=== PATIENT | female | born 1945 | race Caucasian/White ===

== ENCOUNTER 2019-08-20 09:06 | Emergency (ER) | payer MEDICARE, SELFPAY ==
[2019-08-20] VITALS (38 sets, daily range): BP systolic 128–171; BP diastolic 72–95; PULSE 63–95; RESP 14–22; TEMP 36.9; O2SAT 91–99
--- NOTE | ~2019-08-20 | CT_ITS ---
EXAMINATION: CTA brain carotid DATE: 08/20/2019 13:06 CDT INDICATION: Sudden onset of headache TECHNIQUE: Computed tomographic angiography (CTA) of the head was performed without and with 100 mL O mnipaque-350 intravenous contrast. CTA of the neck was performed with intravenous contrast. The dose- length product was 953.12 mGy-cm. Maximum intensity projection and volume rendered 3D-reconstructions were created by the technologist on a separate workstation. COMPARISON: None. FINDINGS: HEAD CTA: Vertebral arteries are codominant. The anterior, middle and posterior cerebral arteries are symmetric. No evidence for aneurysm or significant stenosis. NECK CTA: There is mild atherosclerosis of the carotid bulbs. No significant lymphadenopathy. Thyroid gland is unremarkable. There is 35% stenosis of the proximal right internal carotid artery relative to normal distal artery lumen diameter (NASCET criteria). There is 35% stenosis of the proximal left internal carotid artery relative to normal distal artery lumen diameter. IMPRESSION: 1. 35% stenosis of the proximal right internal carotid artery relative to normal distal artery lumen diameter (NASCET criteria). 2. 25% stenosis of the proximal left internal carotid artery relative to normal distal artery lumen d iameter. 3: Unremarkable intracranial CT angiography. Reviewed, dictated and finalized at location A. IMPRESSION: 1. 35% stenosis of the proximal right internal carotid artery relative to pepper l distal artery lumen diameter (NASCET criteria). 2. 25% stenosis of the proximal left internal carotid artery relative to normal distal artery lumen diameter. 3: Unremarkable intracranial CT angiography.
--- NOTE | ~2019-08-20 | CT_ITS ---
EXAMINATION: CT BRAIN W/O DATE: 08/20/2019 09:55 INDICATION: Severe headache with vomiting TECHNIQUE: Computed tomography (CT) of the head was performed without intravenous contrast. The dose- length product was 605.33 mGy-cm. The mA was adjusted according to patient size. Iterative reconstruc tion technique was employed. COMPARISON: No prior studies for comparison. FINDINGS: Normal brain parenchymal volume for age. Normal wick-white differentiation. No acute intrac ranial hemorrhage, infarction, mass or mass effect. There are scattered mild periventricular and subc ortical white matter changes, most likely related to small vessel ischemic disease (microangiopathy). No ventriculomegaly or midline shift. Midline sagittal images demonstrate a normal corpus callosum, c raniovertebral junction and sella turcica. Basilar cisterns are patent. Paranasal sinuses and mastoids are pneumatized. No depressed skull fractures. IMPRESSION: 1. No acute intracranial abnormality. Reviewed, dictated and finalized at location A.
--- NOTE | 2019-08-20 09:37 | ED.GENADULT ---
HPI - General Adult General Chief complaint: Nausea/Vomiting/Diarrhea Stated complaint: Vomiting Time Seen by Provider: 08/20/19 09:17 Source: patient Mode of arrival: ambulatory Limitations: no limitations History of Present Illness HPI narrative: 74 yo female with h/o previous breast CA, fibromyalgia, and parkinson's who presents for evaluation of frontal headache with nausea and vomiting. Patient states developed a frontal throbbing headache that became worse after she developed nausea and vomiting. She reports she has had multiple episodes vomiting. She denies visual changes, diplopia, neck pain, fever, diarrhea. Related Data Home Medications Medication Instructions Recorded Confirmed carbidopa ER 50 mg-levodopa 200 mg 1 tablet PO ONCE tablet 02/28/19 tablet,extended release mirtazapine 15 mg tablet 15 mg PO DAILY 02/28/19 ondansetron HCl 4 mg tablet 4 mg PO Q12H tablet 02/28/19 Allergies Allergy/AdvReac Type Severity Reaction Status Date / Time ciprofloxacin Allergy Unknown Difficulty Verified 08/20/19 09:14 Breathing levofloxacin Allergy Unknown Difficulty Verified 08/20/19 09:14 Breathing Review of Systems Review of Systems: All systems reviewed & are unremarkable except as noted in HPI and below Constitutional: Constitutional: Denies chills and Denies fever(s) Eyes: Eyes: Denies change in vision ENT: Denies dizziness, Denies nasal congestion and Denies sore throat Respiratory: Respiratory: Denies cough Gastrointestinal: Gastrointestinal: Denies abdominal pain and Reports nausea PMFSH Family History Family History (Updated 03/09/18 @ 11:30 by DOCTOR UNKNOWN) Grandparent Family history of cardiovascular disease Carcinoma of colon Family history of emphysema Family history of thoracic aortic aneurysm Mother Family history of cardiac disorder Father Family history of malignant neoplasm of brain Social History Social History Smoking status: Never smoker Second hand tobacco smoke exposure: No Alcohol intake: current Exam Narrative: Exam Narrative: GENERAL: Well-appearing, well-nourished, and in no acute distress. HEAD: Normocephalic, atraumatic EYES: PERRLA and EOMI, conjunctiva clear without discharge EARS: TM's clear bilaterally without erythema or dullness NOSE: Nares clear, no rhinorrhea or epistaxis THROAT:Mucous membranes moist, Oropharynx normal without erythema, exudate, peritonsillar swelling or fluctuance NECK: Supple, without lymphadenopathy or mass RESPIRATORY: No respiratory distress, Airway patent, Respirations non-labored, Clear to auscultation without rales, rhonchi or wheeze HEART: Regular rate and rhythm. No murmur heard. Normal peripheral pulses. ABDOMEN: Soft, nontender, nondistended, normal active bowel sounds. No masses. No rebound or guarding, No organomegaly. EXTREMITIES: No edema, normal strength with full range of motion. SKIN: Warm, dry, normal color without rash NEURO: Alert and oriented x3. CN 2-12 grossly intact. No focal deficits. PSYCH: Normal mood and affect. Course Reevaluation(s) Reevaluation #1: Patient still reports frontal throbbing headache, It is now 10/26 Date: 08/20/19 Time: 12:33 Reevaluation #2: Patient reports headache almost completely resolved to 04/28. I discussed with patient CT results showing no aneursym. I also discussed LP to rule out meningitis and intracranial hypertension . Patient 'symptoms dont appear to be consistent with either. She declines LP at this time. Date: 08/20/19 Time: 14:18 Vital Signs Vital signs: Vital Signs Temperature 98.5 F 08/20/19 09:09 Temperature 98.5 F 08/20/19 09:09 Pulse Rate 66 08/20/19 14:46 Respiratory Rate 20 08/20/19 14:46 Blood Pressure 130/81 08/20/19 14:46 Pulse Oximetry 94 08/20/19 14:46 Medical Decision Making Vital Signs Vital Signs: Vital Signs Temperature 98.5 F 08/20/19 09:09 Temperature
[2019-08-20 09:46] LABS: Basophils Percent Auto 0.4 % (0.2-1.2); Eosinophils Percent Auto 0.3 % (0-4.4); Hemoglobin 16.4 g/dL (12.0-15.0); Immature Granulocyte Absolute 0.02 K/mm3 (0.00-0.031); Immature Granulocyte Percent A 0.3 % (0-0.5); Lymphocytes Absolute Auto 1.64 K/mm3 (0.9-3.2); Lymphocytes Percent Auto 22.8 % (18.3-44.2); Mean Corpuscular HGB Conc 34.2 g/dl (32-36); Mean Corpuscular Hemoglobin 31.8 pg (26-34); Mean Corpuscular Volume 93.2 fl (80-100); Mean Platelet Volume 11.7 fl (7.4-10.4); Monocytes Absolute Auto 0.6 K/mm3 (0.1-0.6); Monocytes Percent Auto 7.9 % (2.6-8.5); Neutrophils Absolute Auto 4.9 K/mm3 (1.3-6.7); Neutrophils Percent Auto 68.3 % (45.5-73.1); Platelet Count Result 258 k/mm3 (150-375); Red Blood Count 5.15 M/mm3 (4.2-5.4); Red Cell Distribution Width 12.3 % (11.5-14.5); White Blood Count 7.2 K/mm3 (4.5-10.0)
[2019-08-20 09:49] LABS: Add Urine Microscopic? YES; Appearance Urine Clear (Clear); Bacteria Urine Trace /hpf; Bilirubin Urine Negative (Negative); Blood Urine Negative (Negative); Color Urine Yellow (Yellow); Glucose Urine UA Negative (Negative); Ketones Urine 1+ mg/dL (Negative); Leukocyte Esterase Ur 2+ LEU/UL (Negative); Mucus Urine Rare /lpf; Nitrate Urine Negative (Negative); Protein Urine 1+ mg/dL (Negative); Specific Grav Ur 1.029 (1.001-1.035); Squamous Epithelial Cell Urine Rare /hpf (Few); Urobilinogen Urine Negative mg/dL (<2.0); WBC Urine 21-30 /hpf
--- NOTE | 2019-08-20 09:51 | PC.NURSE ---
Pt to imaging.
[2019-08-20 09:56] LABS: INR 0.9; Partial Thromboplastin Time 26.4 SECONDS (22.3-36.8); Prothrombin Time 12.3 Seconds (11.1-14.7)
[2019-08-20] MEDS: METOCLOPRAMIDE HCL INJ 10 MG/2 ML VIAL IV PUSH (09:56)
[2019-08-20] MEDS: LACTATED RINGERS 1,000 ML 999 ML IV CONT ×2 (09:57→12:52)
--- NOTE | 2019-08-20 09:59 | ECG_ITS ---
Measurements Intervals [place] Rate: 75 P: 14 VT: 135 QRS: 8 QRSD: 94 T: 5 QT: 390 QTc: 437 Interpretive Statements SINUS RHYTHM MINIMAL Q WAVES- LATERAL LEADS BORDERLINE T WAVE ABNORMALITY- INFERIOR LEADS BORDERLINE ECG Electronically Signed On 08-20-2019 13:16:47 CDT by Horacio Johansen D.O.
[2019-08-20 10:15] LABS: Alanine Aminotransferase 11 U/L (4-35); Albumin Level 4.5 g/dL (3.5-5.1); Alkaline Phosphatase 57 U/L (38-126); Aspartate Amino Transferase 31 U/L (14-36); Bilirubin,Total 0.8 mg/dL (0.2-1.3); Blood Urea Nitrogen 15 mg/dL (7-17); Calcium 9.5 mg/dL (8.4-10.2); Carbon Dioxide 23 mmol/L (22-30); Chloride 104 mmol/L (98-107); Estimated CRCL calculation 67 ml/min; Estimated Glomerular Filt Rate > 60; Glucose 129 mg/dL (65-105); Potassium 3.7 mmol/L (3.4-5.0); Sodium 139 mmol/L (137-145)
--- NOTE | 2019-08-20 11:03 | PC.NURSE ---
Pt reports improvement in pain, it is now a 7/10 in head. Reports no N/V
[2019-08-20] MEDS: KETOROLAC 30 MG/ML VIAL (*BKC) IV PUSH (12:52)
== END 2019-08-20 15:13 | disposition home or self-care (01) ==
PROVIDERS: Emergency Provider General Practice; PCP Family Medicine
DX: N39.0 Urinary tract infection, site not specified (principal); E86.0 Dehydration; G44.209 Tension-type headache, unspecified, not intractable; Z85.3 Personal history of malignant neoplasm of breast; G20 Parkinson's disease; R94.31 Abnormal electrocardiogram [ECG] [EKG]
CPT/HCPCS: 36415; 70450; 70496; 70498; 80053; 81001; 85025; 85610; 85730; 87086; 87088; 93005; 96361; 96365; 96375; 99284; J0131; J1200; J1885; J2765; J7120; Q9967

== ENCOUNTER → 2019-10-02 13:34 | Outpatient (CLI) | payer MEDICARE, SELFPAY ==
--- NOTE | ~2019-10-02 | XR_ITS ---
EXAMINATION: XR foot RT 2V DATE: 10/02/2019 14:35 INDICATION: Plantar fascial fibromatosis. TECHNIQUE: 2 views of right foot were obtained. COMPARISON: None. FINDINGS: There is mild hallux valgus. No fracture. There is mild osteoarthritis of first metatarsoph alangeal joint and some of the interphalangeal joints. There are enthesophytes at the plantar and pos terior aspects of calcaneal tuberosity. IMPRESSION: 1. Mild polyarticular osteoarthritis. 2. Mild hallux valgus. Reviewed, dictated and finalized at location A.
== END ==
PROVIDERS: PCP Family Medicine; Visit Provider Family Medicine
DX: M72.2 Plantar fascial fibromatosis (principal); M20.11 Hallux valgus (acquired), right foot; M19.071 Primary osteoarthritis, right ankle and foot
CPT/HCPCS: 73620

== ENCOUNTER 2020-05-29 08:05 | Outpatient (CLI) | payer MEDICARE, SELFPAY ==
[2020-05-29 18:36] LABS: Basophils Percent Auto 0.8 % (0.2-1.2); Eosinophils Absolute Auto 0.1 K/mm3 (0-0.3); Eosinophils Percent Auto 2.7 % (0-4.4); Hematocrit 47.9 % (37.0-47.0); Hemoglobin 15.6 g/dL (12.0-15.0); Immature Granulocyte Absolute 0.01 K/mm3 (0.00-0.031); Immature Granulocyte Percent A 0.3 % (0-0.5); Lymphocytes Absolute Auto 1.46 K/mm3 (0.9-3.2); Lymphocytes Percent Auto 39.2 % (18.3-44.2); Mean Corpuscular HGB Conc 32.6 g/dl (32-36); Mean Corpuscular Hemoglobin 31.7 pg (26-34); Mean Corpuscular Volume 97.4 fl (80-100); Mean Platelet Volume 11.6 fl (7.4-10.4); Monocytes Absolute Auto 0.4 K/mm3 (0.1-0.6); Monocytes Percent Auto 9.4 % (2.6-8.5); Neutrophils Absolute Auto 1.8 K/mm3 (1.3-6.7); Neutrophils Percent Auto 47.6 % (45.5-73.1); Platelet Count Result 247 k/mm3 (150-375); Red Blood Count 4.92 M/mm3 (4.2-5.4); Red Cell Distribution Width 12.2 % (11.5-14.5); White Blood Count 3.7 K/mm3 (4.5-10.0)
[2020-05-29 18:41] LABS: Add Urine Microscopic? YES; Appearance Urine Clear (Clear); Bacteria Urine Trace /hpf; Bilirubin Urine Negative (Negative); Blood Urine Negative (Negative); Color Urine Yellow (Yellow); Glucose Urine UA Negative (Negative); Hyaline Casts Urine 30-49 /lpf; Ketones Urine Negative (Negative); Leukocyte Esterase Ur Trace LEU/UL (Negative); Mucus Urine Few /lpf; Nitrate Urine Negative (Negative); Protein Urine 1+ mg/dL (Negative); RBC Urine 0-2 /hpf (0-2); Specific Grav Ur 1.021 (1.001-1.035); Squamous Epithelial Cell Urine Rare /hpf (Few); Urobilinogen Urine Negative mg/dL (<2.0)
[2020-05-29 18:44] LABS: Alanine Aminotransferase 10 U/L (4-35); Alkaline Phosphatase 53 U/L (38-126); Anion Gap 5 mmol/L (8-16); Aspartate Amino Transferase 33 U/L (14-36); Bilirubin,Total 0.7 mg/dL (0.2-1.3); Blood Urea Nitrogen 19 mg/dL (7-17); Calcium 9.8 mg/dL (8.4-10.2); Carbon Dioxide 30 mmol/L (22-30); Chloride 105 mmol/L (98-107); Cholesterol 218 mg/dL (0-200); Estimated Glomerular Filt Rate > 60; Glucose 106 mg/dL (65-105); HDL Direct 42 mg/dL; Potassium 4.1 mmol/L (3.4-5.0); Sodium 140 mmol/L (137-145); Triglycerides 309 mg/dL (<150)
[2020-05-29 18:56] LABS: LDL Cholesterol Direct 140 mg/dL
[2020-05-29 19:02] LABS: Vitamin D 25 Hydroxy 35.8 ng/mL
[2020-05-29 19:54] LABS: Folic Acid > 20.0 ng/mL (2.76->20)
== END 2020-05-29 08:06 | disposition home or self-care (01) ==
LOC: ANHBWCLAB 08:06
PROVIDERS: PCP Family Medicine; Visit Provider Family Medicine
DX: M32.9 Systemic lupus erythematosus, unspecified (principal); R53.83 Other fatigue; Z79.899 Other long term (current) drug therapy; Z82.62 Family history of osteoporosis
CPT/HCPCS: 36415; 80053; 80061; 81001; 82306; 82607; 82746; 84443; 85025; 87086

== ENCOUNTER 2020-11-12 10:38 | Outpatient (CLI) | payer MEDICARE, SELFPAY ==
--- NOTE | ~2020-11-12 | XR_ITS ---
XR hand BI arthritis min 3V 11/12/2020 11:05 Indication: Systemic lupus erythematosus. Procedure: 4 views of each hand Comparison: No prior studies for comparison. Findings: There is mild polyarticular osteoarthritis of the left hand including the first MCP and IP joints and the second interphalangeal joints. Normal mineralization. No fracture or traumatic malalig nment. No erosive changes. No foreign bodies. There is mild osteoarthritis of the right hand involvin g the first MCP and IP joints and the interphalangeal joints. There is mild osteoarthritis of the sec ond third MCP joints. Normal mineralization. No erosive changes. No foreign bodies. Impression: 1: Mild polyarticular osteoarthritis of the hands. Reviewed, dictated and finalized at location A. Impression: 1: Mild polyarticular osteoarthritis of the hands.
--- NOTE | ~2020-11-12 | XR_ITS ---
XR foot RT standing 2V, XR foot LT standing 2V 11/12/2020 11:05 Indication: Systemic lupus erythematosus. Procedure: 2 views of each foot Comparison: No prior studies for comparison. Findings: Mild osteoarthritis of the first MTP joints. Normal mineralization. No erosive changes. Lis franc joint intact bilaterally. There are degenerative calcaneal enthesophytes bilaterally. No acute fracture or traumatic malalignment. Mild bilateral hallux valgus. No fracture or traumatic malalignme nt. Impression: 1: Mild bilateral osteoarthritis of the first MTP joints with hallux valgus. Reviewed, dictated and finalized at location A. Impression: 1: Mild bilateral osteoarthritis of the first MTP joints with hallux valgus. Impression: 1: Mild bilateral osteoarthritis of the first MTP joints with hallux valgus.
== END 2020-11-12 10:39 | disposition home or self-care (01) ==
PROVIDERS: PCP Family Medicine; Visit Provider Internal Medicine
DX: M32.9 Systemic lupus erythematosus, unspecified (principal); M20.12 Hallux valgus (acquired), left foot; M20.11 Hallux valgus (acquired), right foot; M89.49 Other hypertrophic osteoarthropathy, multiple sites
CPT/HCPCS: 73130; 73620

== ENCOUNTER 2020-12-09 09:09 | Emergency (ER) | payer MEDICARE, SELFPAY ==
[2020-12-09 09:35] VITALS: BP 149/91; PULSE 73; RESP 14; TEMP 36.6; O2SAT 97
[2020-12-09 09:58] LABS: Basophils Percent Auto 0.5 % (0.2-1.2); Eosinophils Absolute Auto 0.1 K/mm3 (0-0.3); Hematocrit 47.1 % (37.0-47.0); Hemoglobin 15.5 g/dL (12.0-15.0); Immature Granulocyte Absolute 0.01 K/mm3 (0.00-0.031); Immature Granulocyte Percent A 0.2 % (0-0.5); Lymphocytes Absolute Auto 1.39 K/mm3 (0.9-3.2); Lymphocytes Percent Auto 34.7 % (18.3-44.2); Mean Corpuscular HGB Conc 32.9 g/dl (32-36); Mean Corpuscular Hemoglobin 31.6 pg (26-34); Mean Corpuscular Volume 95.9 fl (80-100); Mean Platelet Volume 11.1 fl (7.4-10.4); Monocytes Absolute Auto 0.4 K/mm3 (0.1-0.6); Monocytes Percent Auto 10.5 % (2.6-8.5); Neutrophils Absolute Auto 2.1 K/mm3 (1.3-6.7); Neutrophils Percent Auto 52.1 % (45.5-73.1); Platelet Count Result 239 k/mm3 (150-375); Red Blood Count 4.91 M/mm3 (4.2-5.4); Red Cell Distribution Width 12.2 % (11.5-14.5)
[2020-12-09 10:12] LABS: Alanine Aminotransferase 8 U/L (4-35); Albumin Level 4.1 g/dL (3.5-5.1); Alkaline Phosphatase 45 U/L (38-126); Anion Gap 6 mmol/L (8-16); Aspartate Amino Transferase 27 U/L (14-36); Bilirubin,Total 0.5 mg/dL (0.2-1.3); Blood Urea Nitrogen 9 mg/dL (7-17); Calcium 10.2 mg/dL (8.4-10.2); Carbon Dioxide 31 mmol/L (22-30); Chloride 99 mmol/L (98-107); Estimated CRCL calculation 64 ml/min; Estimated Glomerular Filt Rate > 60; Glucose 110 mg/dL (65-110); Lipase 76 U/L (23-300); Potassium 3.5 mmol/L (3.4-5.0); Sodium 136 mmol/L (137-145)
[2020-12-09 11:56] LABS: Add Urine Microscopic? YES; Appearance Urine Clear (Clear); Bilirubin Urine Negative (Negative); Blood Urine Negative (Negative); Color Urine Yellow (Yellow); Glucose Urine UA Negative (Negative); Ketones Urine Trace mg/dL (Negative); Leukocyte Esterase Ur 3+ LEU/UL (Negative); Mucus Urine Rare /lpf; Nitrate Urine Negative (Negative); Protein Urine 1+ mg/dL (Negative); Specific Grav Ur 1.025 (1.001-1.035); Urobilinogen Urine Negative mg/dL (<2.0); WBC Urine 31-50 /hpf
[2020-12-09 12:31] VITALS: BP 142/76; PULSE 67; RESP 13; O2SAT 97
--- NOTE | 2020-12-09 12:33 | ED.NAVMDI ---
HPI - Nausea/Vomiting/Diarrhea General Chief complaint: Nausea/Vomiting/Diarrhea Stated complaint: Nausea, vomiting x2 weeks Time Seen by Provider: 12/09/20 12:27 History of Present Illness HPI Narrative: Nausea and vomiting for the past 2 weeks. She initially had diarrhea as well, this has resolved. Seen at a hospital in [place] when symptoms started. Told that it was likely gastritis or food poisoning. She was discharged with zofran and loperamide. The zofran provides temporary relief, she has not needed the loperamide. She was doing better for a short period, now symptoms have returned. Vomiting worse at night. Related Data Home Medications Medication Instructions Recorded Confirmed carbidopa ER 50 mg-levodopa 200 mg 1 tablet PO ONCE tablet 02/28/19 11/12/20 tablet,extended release letrozole 2.5 mg tablet 2.5 mg PO DAILY 10/02/19 11/12/20 zoledronic acid 4 mg/5 mL 1 mg IVPB ONCE 10/02/19 11/12/20 intravenous solution biotin 1,000 mcg chewable tablet 1,000 mcg PO DAILY 05/28/20 11/12/20 calcium carbonate 390 mg calcium 390 mg PO DAILY 05/28/20 11/12/20 (1,000 mg) tablet calcium carbonate 600 mg (1,500 cap PO DAILY cap 05/28/20 11/12/20 mg)-vitamin D3 500 unit capsule carbidopa 25 mg-levodopa 100 mg 1 tablet PO TID 05/28/20 11/12/20 tablet coenzyme [id number]-[id number] E 100 mg-100 cap PO DAILY cap 05/28/20 11/12/20 unit capsule multivitamin 1 tablet PO DAILY 05/28/20 11/12/20 potassium 99 mg tablet mg PO 05/28/20 11/12/20 quetiapine 25 mg tablet 25 mg PO DAILY tablet 05/28/20 11/12/20 vitamin E (dl, acetate) 450 mg 4,000 mg PO DAILY cap 05/28/20 11/12/20 (1,000 unit) capsule Allergies Allergy/AdvReac Type Severity Reaction Status Date / Time ciprofloxacin Allergy Unknown Difficulty Verified 12/09/20 12:33 Breathing levofloxacin Allergy Unknown Difficulty Verified 12/09/20 12:33 Breathing Review of Systems Review of Systems: All systems reviewed & are unremarkable except as noted in HPI and below Constitutional: Constitutional: Denies fever(s) Cardiovascular: Cardiovascular: Denies chest pain Respiratory: Respiratory: Denies dyspnea Gastrointestinal: Gastrointestinal: Denies abdominal pain, Reports nausea and Reports vomiting Genitourinary: Genitourinary: Denies hematuria, Denies nocturia and Denies dysuria Musculoskeletal: Musculoskeletal: Denies back pain Neurologic: Reports weakness PMFSH Past Medical History Medical History Cancer Fibromyalgia History of frequent headaches Lupus Surgical History Surgical History H/O mastectomy left H/O total hysterectomy Family History Family History Grandparent Family history of cardiovascular disease Carcinoma of colon Family history of emphysema Family history of thoracic aortic aneurysm Mother Family history of cardiac disorder Father Family history of malignant neoplasm of brain Social History Social History Smoking status: Never smoker Second hand tobacco smoke exposure: No Alcohol intake: never Substance use: never Substance use type: does not use Exam Const: General: no acute distress and alert Nutritional Appearance: obese Orientation/consciousness: patient oriented x3 HENMT: Head: normal to inspection Neck: Neck: normal visual inspection Resp: Effort & Inspection: normal respiratory effort Auscultation: clear to auscultation bilaterally, no rales, no rhonchi and no wheezes Cardio: Jugular venous distension: no JVD Rate: regular rate Rhythm: regular rhythm Heart sounds: no murmurs GI: Inspection: non-distended GI Palp: Yes Soft to palpation and No Tenderness to palpation present (GI) Skin: General skin exam: normal color Neuro: General: patient oriented x3 a
[2020-12-09] MEDS: SODIUM CHLORIDE 0.9% IV 1,000 ML 999 ML IV CONT (13:04)
[2020-12-09] MEDS: METOCLOPRAMIDE HCL INJ 10 MG/2 ML VIAL IV PUSH (13:04)
[2020-12-09] MEDS: NITROFURANTOIN MONOHYD MACROCR 100 MG CAP PO (14:10)
== END 2020-12-09 14:57 | disposition home or self-care (01) ==
PROVIDERS: Family Medicine; Emergency Provider Emergency Medicine; PCP Family Medicine
DX: N39.0 Urinary tract infection, site not specified (principal); R11.2 Nausea with vomiting, unspecified; M79.7 Fibromyalgia; Z85.3 Personal history of malignant neoplasm of breast; Z90.12 Acquired absence of left breast and nipple
CPT/HCPCS: 36415; 80053; 81001; 83690; 85025; 87086; 87147; 87181; 87186; 96361; 96374; 99284; A9270; J2765; J7030

== ENCOUNTER 2021-05-06 09:11 | Outpatient (CLI) | payer MEDICARE, SELFPAY ==
[2021-05-06 19:01] LABS: Basophils Percent Auto 0.9 % (0.2-1.2); Eosinophils Absolute Auto 0.1 K/mm3 (0-0.3); Eosinophils Percent Auto 2.1 % (0-4.4); Hemoglobin 15.4 g/dL (12.0-15.0); Lymphocytes Absolute Auto 1.24 K/mm3 (0.9-3.2); Lymphocytes Percent Auto 37.7 % (18.3-44.2); Mean Corpuscular HGB Conc 32.8 g/dl (32-36); Mean Corpuscular Hemoglobin 31.7 pg (26-34); Mean Corpuscular Volume 96.7 fl (80-100); Mean Platelet Volume 11.5 fl (7.4-10.4); Monocytes Absolute Auto 0.4 K/mm3 (0.1-0.6); Monocytes Percent Auto 12.5 % (2.6-8.5); Neutrophils Absolute Auto 1.5 K/mm3 (1.3-6.7); Neutrophils Percent Auto 46.8 % (45.5-73.1); Platelet Count Result 232 k/mm3 (150-375); Red Blood Count 4.86 M/mm3 (4.2-5.4); Red Cell Distribution Width 12.5 % (11.5-14.5); White Blood Count 3.3 K/mm3 (4.5-10.0)
[2021-05-06 19:14] LABS: Alanine Aminotransferase 8 U/L (4-35); Albumin Level 4.4 g/dL (3.5-5.1); Alkaline Phosphatase 56 U/L (38-126); Anion Gap 11 mmol/L (8-16); Aspartate Amino Transferase 41 U/L (14-36); Bilirubin,Total 0.7 mg/dL (0.2-1.3); Blood Urea Nitrogen 18 mg/dL (7-17); CRP 0.5 mg/dL (<1.0); Calcium 10.1 mg/dL (8.4-10.2); Carbon Dioxide 25 mmol/L (22-30); Chloride 105 mmol/L (98-107); Estimated Glomerular Filt Rate > 60; Glucose 86 mg/dL (65-110); Potassium 4.3 mmol/L (3.4-5.0); Sodium 141 mmol/L (137-145)
[2021-05-06 19:29] LABS: Add Urine Microscopic? YES; Appearance Urine Clear (Clear); Bacteria Urine Trace /hpf; Bilirubin Urine Negative (Negative); Blood Urine Negative (Negative); Color Urine Yellow (Yellow); Glucose Urine UA Negative (Negative); Ketones Urine Trace mg/dL (Negative); Leukocyte Esterase Ur Trace LEU/UL (Negative); Mucus Urine Few /lpf; Nitrate Urine Negative (Negative); Protein Urine 1+ mg/dL (Negative); Specific Grav Ur 1.026 (1.001-1.035); Squamous Epithelial Cell Urine Rare /hpf (Few); Urobilinogen Urine Negative mg/dL (<2.0)
[2021-05-06 20:33] LABS: Erythrocyte Sedimentation Rate 15 mm/hr (0-20)
[2021-05-06 21:23] LABS: Rheumatoid Factor < 8.6 IU/ML (<12)
[2021-05-09 20:33] LABS: Lupus dRVVT 1:1 Mix Interpreta Not Indicated; Lupus dRVVT Screen 34 sec (<=45); PTT-LA Screen 33 sec (<=40)
[2021-05-09 22:17] LABS: Anti Cyclic Citrullinated Pept <16 Units (<20)
[2021-05-10 11:57] LABS: SM Antibody <1.0; SM/RNP Antibody <1.0
[2021-05-10 11:57] LABS: SS-A <1.0; SS-B <1.0
== END 2021-05-06 09:12 | disposition home or self-care (01) ==
PROVIDERS: PCP Family Medicine; Visit Provider Internal Medicine
DX: M06.9 Rheumatoid arthritis, unspecified (principal); M32.9 Systemic lupus erythematosus, unspecified; Z11.59 Encounter for screening for other viral diseases; M06.00 Rheumatoid arthritis without rheumatoid factor, unspecified site; Z79.899 Other long term (current) drug therapy
CPT/HCPCS: 36415; 80053; 81001; 85025; 85613; 85652; 85730; 86038; 86140; 86200; 86225; 86235; 86430; 87086

== ENCOUNTER 2021-11-11 09:47 | Outpatient (CLI) | payer MEDICARE, SELFPAY ==
[2021-11-11 10:29] LABS: Basophils Percent Auto 0.5 % (0.2-1.2); Eosinophils Absolute Auto 0.1 K/mm3 (0-0.3); Eosinophils Percent Auto 2.4 % (0-4.4); Hematocrit 43.8 % (37.0-47.0); Hemoglobin 14.4 g/dL (12.0-15.0); Immature Granulocyte Absolute 0.01 K/mm3 (0.00-0.031); Immature Granulocyte Percent A 0.2 % (0-0.5); Lymphocytes Absolute Auto 1.31 K/mm3 (0.9-3.2); Lymphocytes Percent Auto 31.4 % (18.3-44.2); Mean Corpuscular HGB Conc 32.9 g/dl (32-36); Mean Corpuscular Hemoglobin 31.6 pg (26-34); Mean Corpuscular Volume 96.1 fl (80-100); Monocytes Absolute Auto 0.5 K/mm3 (0.1-0.6); Monocytes Percent Auto 10.8 % (2.6-8.5); Neutrophils Absolute Auto 2.3 K/mm3 (1.3-6.7); Neutrophils Percent Auto 54.7 % (45.5-73.1); Platelet Count Result 200 k/mm3 (150-375); Red Blood Count 4.56 M/mm3 (4.2-5.4); Red Cell Distribution Width 12.1 % (11.5-14.5); White Blood Count 4.2 K/mm3 (4.5-10.0)
[2021-11-11 14:37] LABS: Appearance Urine Clear (Clear); Bilirubin Urine Negative (Negative); Blood Urine Negative (Negative); Color Urine Yellow (Yellow); Glucose Urine UA Negative (Negative); Ketones Urine Negative (Negative); Leukocyte Esterase Ur 1+ LEU/UL (Negative); Nitrate Urine Negative (Negative); Protein Urine Negative (Negative); Specific Grav Ur >= 1.030 (1.001-1.035); Urobilinogen Urine 0.2 mg/dL (<2.0); pH Urine 5.5 (5.0-9.0)
[2021-11-11 14:44] LABS: Alanine Aminotransferase 14 U/L (6-35); Albumin Level 4.2 g/dL (3.5-5.1); Alkaline Phosphatase 51 U/L (38-126); Anion Gap 8 mmol/L (8-16); Aspartate Amino Transferase 30 U/L (14-36); Bilirubin,Total 0.4 mg/dL (0.2-1.3); Blood Urea Nitrogen 20 mg/dL (7-17); CRP < 0.5 mg/dL (<1.0); Calcium 8.6 mg/dL (8.4-10.2); Carbon Dioxide 31 mmol/L (22-30); Chloride 104 mmol/L (98-107); Estimated Glomerular Filt Rate > 60; Glucose 95 mg/dL (65-110); Potassium 4.2 mmol/L (3.4-5.0); Sodium 143 mmol/L (137-145)
[2021-11-11 14:50] LABS: Bacteria Urine Trace /hpf; Mucus Urine Rare /lpf; RBC Urine 0-2 /hpf (0-2); Squamous Epithelial Cell Urine Rare /hpf (Few)
[2021-11-11 14:52] LABS: Add Urine Microscopic? YES
[2021-11-11 14:57] LABS: Erythrocyte Sedimentation Rate 12 mm/hr (0-20)
[2021-11-11 17:22] LABS: Complement C3 100 mg/dL (88-165)
== END 2021-11-11 09:48 | disposition home or self-care (01) ==
LOC: ANHLAB 09:48
PROVIDERS: PCP Family Medicine; Visit Provider Internal Medicine
DX: E55.9 Vitamin D deficiency, unspecified (principal); M35.9 Systemic involvement of connective tissue, unspecified; M19.90 Unspecified osteoarthritis, unspecified site
CPT/HCPCS: 36415; 80053; 81001; 82306; 85025; 85652; 86140; 86160; 87086

== ENCOUNTER 2022-01-15 14:42 | Outpatient (CLI) | payer MEDICARE, SELFPAY ==
--- NOTE | ~2022-01-15 | XR_ITS ---
EXAMINATION: XR wrist LT min 3V DATE: 01/15/2022 14:53 INDICATION: 3 weeks of ulnar-sided wrist pain and pain at the proximal thumb TECHNIQUE: Posteroanterior, ulnar deviation, oblique, and lateral views of the left wrist were obtain ed. COMPARISON: 11/12/2020 FINDINGS: Bone alignment is normal. No fracture. Small heterotopic ossicle in the tissues at the radial margin of the head of the second metacarpal tenderness related to old trauma to the radial collateral ligame nt complex. Mild osteoarthritis at the triscaphe, first carpal metacarpal and first interphalangeal j oints. Unchanged cystic change at the lunate. No evident cortical erosions. Soft tissues are unremark able.. IMPRESSION: 1. No acute osseous abnormality. 2. Mild osteoarthritis at the radial aspect of the carpus and first interphalangeal joint. Reviewed, dictated and finalized at location A. IMPRESSION: 1. No acute osseous abnormality. 2. Mild osteoarthritis at the radial aspect of the carpus and first interphalan geal joint.
== END 2022-01-15 14:43 | disposition home or self-care (01) ==
LOC: ANHBWCIMG 14:43
PROVIDERS: PCP Family Medicine; Visit Provider Family Medicine
DX: M19.032 Primary osteoarthritis, left wrist (principal)
CPT/HCPCS: 73110

== ENCOUNTER → 2022-01-22 10:09 | Outpatient (CLI) | payer MEDICARE, SELFPAY ==
--- NOTE | ~2022-01-22 | DEXA_ITS ---
Bone Density Report Name: CLAUDIA LAGOS Age: 76 Sex: Female Ethnicity: White Date of : 1945 Indication: postmenopausal; screening for osteoporosis; prior fracture; cancer; hysterectomy; Referring Provider: Joni Kilpatrick Study: Bone densitometry was performed. Exam Date: January 22, 2022 Accession number: [id number] Bone Density: Region BMD T-score Z-score Classification AP Spine (L1, L2) 1.179 1.8 4.1 Normal Femoral Neck (Left) 0.574 -2.5 -0.4 Osteoporosis Total Hip (Left) 0.797 -1.2 0.6 Osteopenia Femoral Neck (Right) 0.582 -2.4 -0.3 Osteopenia Total Hip (Right) 0.766 -1.4 0.3 Osteopenia Total Hip Mean 0.782 -1.3 0.5 Osteopenia World Health Organization criteria for BMD impression classify patients as: Normal (T-score at or above -1.0), Osteopenia (T-score between -1.0 and -2.5), or Osteoporosis (T-score at or below -2.5). 10-year Fracture Risk: FRAX not reported because: Some T-score for Spine Total or Hip Total or Femoral Neck at or below -2.5 Clinical Information Provided by Patient: Has had a low trauma fracture Has used the following medications: Vitamin D Has the following medical conditions: Cancer, Hysterectomy Patient maximum height was 62.3 Menopause Age: 40 No regular weight bearing exercise Drinks caffeinated beverages Onset of menses at age 16 Number of children 2 Impression: The patient has established osteoporosis, based on the Left Femoral Neck T-score and the existence of a prior fracture. The patient has risk factors, including: previous fracture. Discussion: HIGH RISK OF FRACTURE. BONE DENSITY IS UNDESIRABLY LOW AT ONE OR MORE SKELETAL SITES, CONSISTENT WITH POSTMENOPAUSAL OSTEOPOROSIS. This patient's lowest T-score, in a patient who has previously fractured, meets the World Health Organization's (WHO) criteria for severe osteoporosis. In untreated patients, the risk of osteoporotic fracture increases approximately two-fold for each 1.0 SD decrease in T-score. Low bone density is not the only risk factor for fracture; also consider factors such as patient's age, frailty or poor health, risk of falling, risk of injury, previous osteoporotic fracture, family history of osteoporosis, cigarette smoking, low body weight, etc. Not everyone with low bone mineral density has osteoporosis; osteomalacia and other metabolic bone disorders should also be considered. Patients who have osteoporosis should be evaluated for specific diseases and conditions (secondary causes) that may cause or contribute to bone loss. The [place] [employer]ocrinologists (AACE) and National Osteoporosis Foundation (NOF) recommend pharmacologic intervention for all postmenopausal women whose T-score is in this range. The patient should follow a healthful lifestyle (good nutrition with adequate gustavo
== END ==
PROVIDERS: PCP Family Medicine; Visit Provider Internal Medicine
DX: Z13.820 Encounter for screening for osteoporosis (principal); M81.0 Age-related osteoporosis without current pathological fracture; M85.852 Other specified disorders of bone density and structure, left thigh; M85.851 Other specified disorders of bone density and structure, right thigh
CPT/HCPCS: 77080

== ENCOUNTER 2022-08-17 11:13 | Emergency (ER) | payer MEDICARE, SELFPAY ==
--- NOTE | ~2022-08-17 | CT_ITS ---
CT of the Abdomen and Pelvis: Indication: Nausea and vomiting Technique: 2.5 mm axial scans were obtained through the abdomen and pelvis following intravenous adm inistration of 100 cc of Omnipaque 350. Dose reduction technique was used on this scan by utilizing a utomated exposure control and iterative reconstruction technique. The dose-length product (DLP) was 1 181.42 mGy-cm. COMPARISON: 01/24/2018 Findings: Scans through the lung bases demonstrate stable bibasilar scarring and probable chronic ro unded atelectasis. Dlplk-ap-oivvcoyr hiatal hernia again present. The liver, spleen, pancreas, gallbladder, adrenals and kidneys are within normal limits. There are at herosclerotic calcifications of the aorta. No lymphadenopathy. No bowel obstruction or bowel wall thickening. There is no evidence to suggest acute appendicitis. Sm all umbilical fat-containing of focal hernia present. Images through the pelvis were performed. Urinary bladder unremarkable. No pelvic mass evident. No as cites. Impression: No acute abnormality seen. Eqpyn-gh-doodsyuj hiatal hernia, similar to prior exam. Postoperative change involving the hiatus her dulce region is stable from prior exam. Correlate with surgical history. Small fat-containing umbilical hernia. Reviewed, dictated and finalized at location M. Impression: No acute abnormality seen. Elitf-uc-yfitcmyu hiatal hernia, similar to prior exam. Postoperative change in volving the hiatus hernia region is stable from prior exam. Correlate with surg ical history. Small fat-containing umbilical hernia.
[2022-08-17 11:21] VITALS: BP 167/81; PULSE 76; RESP 14; TEMP 36.6; O2SAT 98
[2022-08-17 11:47] VITALS: BP 188/100; PULSE 75; RESP 16; O2SAT 95
--- NOTE | 2022-08-17 11:50 | ECG_ITS ---
Measurements Intervals [place] Rate: 72 P: 17 [place]: 124 QRS: 23 QRSD: 100 T: 30 QT: 429 QTc: 471 Interpretive Statements SINUS RHYTHM BASELINE ARTIFACT- III, V4 NORMAL ECG COMPARED TO ECG 08/20/2019 09:57:55 NO SIGNIFICANT CHANGES Electronically Signed On 08-17-2022 13:04:45 CDT by Horacio Johansen D.O.
[2022-08-17 11:54] LABS: Basophils Percent Auto 0.3 % (0.2-1.2); Hematocrit 46.4 % (37.0-47.0); Hemoglobin 15.7 g/dL (12.0-15.0); Immature Granulocyte Absolute 0.02 K/mm3 (0.00-0.031); Immature Granulocyte Percent A 0.3 % (0-0.5); Lymphocytes Percent Auto 10.8 % (18.3-44.2); Mean Corpuscular HGB Conc 33.8 g/dl (32-36); Mean Corpuscular Hemoglobin 31.6 pg (26-34); Mean Corpuscular Volume 93.4 fl (80-100); Mean Platelet Volume 11.1 fl (7.4-10.4); Monocytes Absolute Auto 0.2 K/mm3 (0.1-0.6); Monocytes Percent Auto 3.2 % (2.6-8.5); Neutrophils Absolute Auto 5.6 K/mm3 (1.3-6.7); Neutrophils Percent Auto 85.4 % (45.5-73.1); Platelet Count Result 226 k/mm3 (150-375); Red Blood Count 4.97 M/mm3 (4.2-5.4); Red Cell Distribution Width 11.9 % (11.5-14.5); White Blood Count 6.5 K/mm3 (4.5-10.0)
[2022-08-17 12:00] LABS: Lipase 42 U/L (23-300)
[2022-08-17] MEDS: ONDANSETRON INJ 4 MG/2 ML VIAL IV PUSH (12:01)
[2022-08-17 12:02] LABS: Alanine Aminotransferase 26 U/L (6-35); Albumin Level 4.7 g/dL (3.5-5.1); Alkaline Phosphatase 54 U/L (38-126); Anion Gap 5 mmol/L (8-16); Aspartate Amino Transferase 35 U/L (14-36); Bilirubin,Total 0.8 mg/dL (0.2-1.3); Blood Urea Nitrogen 18 mg/dL (7-17); Calcium 9.5 mg/dL (8.4-10.2); Carbon Dioxide 27 mmol/L (22-30); Chloride 104 mmol/L (98-107); Estimated CRCL calculation 68 ml/min; Estimated Glomerular Filt Rate > 60; Glucose 155 mg/dL (65-110); Potassium 4.1 mmol/L (3.4-5.0); Sodium 136 mmol/L (137-145)
[2022-08-17 12:26] LABS: Troponin I < 0.012 ng/mL (0.000-0.034)
[2022-08-17] MEDS: PANTOPRAZOLE SODIUM IV 40 MG VIAL IV PUSH (13:16)
[2022-08-17] MEDS: diphenhydrAMINE HCl INJ 50 MG/ML VIAL 25 MG IV PUSH (13:17)
[2022-08-17] MEDS: METOCLOPRAMIDE HCL INJ 10 MG/2 ML VIAL IV PUSH (13:20)
[2022-08-17 13:21] VITALS: BP 145/86; PULSE 74; RESP 20; O2SAT 97
[2022-08-17 14:17] VITALS: BP 151/92; PULSE 80; RESP 22; O2SAT 97
--- NOTE | 2022-08-17 14:19 | ED.NAVMDI ---
HPI - Nausea/Vomiting/Diarrhea General Chief complaint: Nausea/Vomiting/Diarrhea Stated complaint: N/V since last night Time Seen by Provider: 08/17/22 11:41 History of Present Illness HPI Narrative: Patient presenting with nausea and vomiting since 8 PM last night after eating dinner, no abdominal pain other than when she is throwing up. No fevers or chills. Related Data Home Medications Medication Instructions Recorded Confirmed carbidopa ER 50 mg-levodopa 200 mg 1 tablet PO ONCE 02/28/19 05/13/21 tablet,extended release letrozole 2.5 mg tablet 2.5 mg PO DAILY 10/02/19 05/13/21 zoledronic acid 4 mg/5 mL 1 mg IV ONCE 10/02/19 05/13/21 intravenous solution biotin 1,000 mcg chewable tablet 1,000 mcg PO DAILY 05/28/20 05/13/21 calcium carbonate 390 mg calcium 390 mg PO DAILY 05/28/20 05/13/21 (1,000 mg) tablet calcium carbonate 600 mg-vitamin cap PO DAILY 05/28/20 05/13/21 D3 12.5 mcg (500 unit) capsule (Calcium 600 with Vitamin D3) carbidopa 25 mg-levodopa 100 mg 1 tablet PO TID 05/28/20 05/13/21 tablet coenzyme Q17-csvhnbd E 100 mg-100 cap PO DAILY 05/28/20 05/13/21 unit capsule multivitamin (Daily Multi-Vitamin 1 tablet PO DAILY 05/28/20 05/13/21 tablet) potassium 99 mg tablet mg PO 05/28/20 05/13/21 vitamin E (dl, acetate) 450 mg 4,000 mg PO DAILY 05/28/20 05/13/21 (1,000 unit) capsule quetiapine 25 mg tablet 50 mg PO DAILY 01/15/22 Allergies Allergy/AdvReac Type Severity Reaction Status Date / Time ciprofloxacin Allergy Unknown Difficulty Verified 08/17/22 11:48 Breathing levofloxacin Allergy Unknown Difficulty Verified 08/17/22 11:48 Breathing Review of Systems Review of Systems: CONST: No fever. HEENT: No sore throat C/V: No chest pain RESP: No cough GI: Reports nausea, vomiting : No dysuria. M/S: No joint pain. SKIN: No rash. NEURO: Headache PSYCH: [No depression] [facility] Past Medical History Medical History Bilateral hand pain Cancer Fibromyalgia Generalized osteoarthritis of multiple sites History of frequent headaches Lupus Osteoporosis screening Undifferentiated connective tissue disease Vitamin D deficiency Surgical History Surgical History H/O mastectomy left H/O total hysterectomy Family History Family History Grandparent Family history of cardiovascular disease Carcinoma of colon Family history of emphysema Family history of thoracic aortic aneurysm Mother Family history of cardiac disorder Father Family history of malignant neoplasm of brain Social History Social History Smoking status: Never smoker Second hand tobacco smoke exposure: No Alcohol intake: never Substance use: never Substance use type: does not use Exam Narrative: EXAMINATION OF ORGAN SYSTEMS/BODY AREAS: Constitutional: Vital signs per nursing GENERAL: Appears somewhat drained and tired HEAD: Normal with no signs of head trauma. EYES: EOMI, conjunctiva normal ENT: Hearing grossly intact LUNGS: Nonlabored breathing. HEART: [Regular rate and rhythm] ABD: [Soft], [nontender to palpation] EXT: Normal range of motion SKIN: [No rashes or lesions.] NEURO: [Alert and oriented x 3. No gross focal sensory or strength deficits.] PSYCH: Normal affect Course Vital Signs Vital signs: Vital Signs Temperature 97.9 F 08/17/22 11:21 Pulse Rate 76 08/17/22 11:21 Respiratory Rate 14 08/17/22 11:21 Blood Pressure 167/81 H 08/17/22 11:21 Pulse Oximetry 98 08/17/22 11:21 Oxygen Delivery Room Air 08/17/22 11:21 Temperature 97.9 F 08/17/22 11:21 Pulse Rate 80 08/17/22 14:17 Respiratory Rate 22 H 08/17/22 14:17 Blood Pressure 151/92 H 08/17/22 14:17 Pulse Oximetry 97 08/17/22 14:17 Oxygen Delivery Room Air
== END 2022-08-17 14:39 | disposition home or self-care (01) ==
PROVIDERS: Emergency Provider Emergency Medicine; PCP Family Medicine
DX: R11.2 Nausea with vomiting, unspecified (principal); M79.7 Fibromyalgia; M19.90 Unspecified osteoarthritis, unspecified site; E55.9 Vitamin D deficiency, unspecified; Z90.12 Acquired absence of left breast and nipple; Z90.710 Acquired absence of both cervix and uterus; K42.9 Umbilical hernia without obstruction or gangrene; K44.9 Diaphragmatic hernia without obstruction or gangrene
CPT/HCPCS: 36415; 74177; 80053; 83690; 84484; 85025; 93005; 96374; 96375; 99284; C9113; J1200; J2405; J2765; Q9967

== ENCOUNTER 2022-11-17 20:12 | Observation (INO) | payer MEDICARE, SELFPAY ==
[2022-11-17] VITALS (8 sets, daily range): BP systolic 140–182; BP diastolic 77–97; PULSE 78–91; RESP 14–24; TEMP 36.6; O2SAT 94–100
--- NOTE | ~2022-11-17 | CT_ITS ---
EXAMINATION: CT abdomen pelvis w con DATE: 11/17/2022 22:00 INDICATION: Abdominal pain nausea and vomiting TECHNIQUE: Computed tomography (CT) of the abdomen and pelvis was performed with 100 mL Omnipaque-350 intravenous contrast. Automated exposure control and iterative reconstruction technique were employe d. The dose-length product was 997.43 mGy-cm. COMPARISON: 08/17/2022. FINDINGS: Lower thorax: Aortic valve and coronary artery calcification. Moderate hiatal hernia with post surgic al changes at the GE junction. Bibasilar scar/atelectasis. Liver: Normal. Biliary/Gallbladder: Gallbladder is normal. No bile duct dilation. Pancreas: Fatty atrophy Spleen: Normal. Adrenals: Stable subcentimeter right adrenal adenoma.. Kidneys: No mass, stone, or hydronephrosis. GI tract: Moderate distal esophageal and mild gastric wall edema. No small or large bowel dilation. N ormal appendix. Diverticulosis without diverticulitis. Mesentery/Peritoneum: No ascites, mass, or free air. Retroperitoneum: No mass. Atherosclerotic abdominal aortic and/or arterial calcifications. Pelvis: Absent uterus. Mild wall thickening in a partially distended urinary bladder. Soft Tissues: Fat-containing uncomplicated umbilical hernia. Bones: No acute osseous finding. IMPRESSION: Moderate esophagitis and mild gastritis. Cystitis versus wall thickening from incomplete urinary bladder distention. Reviewed, dictated and finalized at location K.
[2022-11-17 20:40] LABS: Basophils Percent Auto 0.2 % (0.2-1.2); Hematocrit 45.3 % (37.0-47.0); Hemoglobin 15.4 g/dL (12.0-15.0); Lymphocytes Absolute Auto 0.89 K/mm3 (0.9-3.2); Lymphocytes Percent Auto 17.9 % (18.3-44.2); Mean Corpuscular Hemoglobin 32.2 pg (26-34); Mean Corpuscular Volume 94.6 fl (80-100); Mean Platelet Volume 10.7 fl (7.4-10.4); Monocytes Absolute Auto 0.4 K/mm3 (0.1-0.6); Neutrophils Absolute Auto 3.7 K/mm3 (1.3-6.7); Neutrophils Percent Auto 73.9 % (45.5-73.1); Platelet Count Result 297 k/mm3 (150-375); Red Blood Count 4.79 M/mm3 (4.2-5.4); Red Cell Distribution Width 12.2 % (11.5-14.5)
[2022-11-17 20:54] LABS: Alanine Aminotransferase 21 U/L (6-35); Albumin Level 4.3 g/dL (3.5-5.1); Alkaline Phosphatase 58 U/L (38-126); Anion Gap 12 mmol/L (8-16); Aspartate Amino Transferase 27 U/L (14-36); Bilirubin,Total 0.8 mg/dL (0.2-1.3); Blood Urea Nitrogen 10 mg/dL (7-17); Calcium 9.4 mg/dL (8.4-10.2); Carbon Dioxide 22 mmol/L (22-30); Chloride 102 mmol/L (98-107); Estimated CRCL calculation 68 ml/min; Estimated Glomerular Filt Rate > 60; Glucose 137 mg/dL (65-110); Lipase 42 U/L (23-300); Potassium 3.6 mmol/L (3.4-5.0); Sodium 136 mmol/L (137-145)
[2022-11-17] MEDS: SODIUM CHLORIDE 0.9% IV 1,000 ML 999 ML IV CONT ×2 (21:42→23:28)
[2022-11-17] MEDS: diphenhydrAMINE HCl INJ 50 MG/ML VIAL IV PUSH (21:43)
[2022-11-17] MEDS: PROCHLORPERAZINE EDISYLATE 10 MG/2 ML VIAL IV PUSH (21:43)
[2022-11-17 21:53] LABS: Troponin I < 0.012 ng/mL (0.000-0.034)
[2022-11-17 21:53] LABS: Lactic Acid Reflex 1.5 mmol/L (0.7-2.0)
[2022-11-17 22:43] LABS: Appearance Urine Clear (Clear); Bacteria Urine None Seen /hpf; Bilirubin Urine Negative (Negative); Blood Urine Negative (Negative); Color Urine Yellow (Yellow); Glucose Urine UA Negative (Negative); Ketones Urine 2+ mg/dL (Negative); Leukocyte Esterase Ur 1+ LEU/UL (Negative); Nitrate Urine Negative (Negative); Non Pathogenic Casts 0-2; Protein Urine Negative (Negative); RBC Urine 0-2 /hpf (0-2); Squamous Epithelial Cell Urine Occasional /hpf (Few); WBC Urine 21-50 /hpf
[2022-11-17 22:45] LABS: Specific Grav Ur 1.084 (1.001-1.035)
[2022-11-17 22:46] LABS: Add Urine Microscopic? YES
--- NOTE | 2022-11-17 23:08 | ED.GENADULT ---
HPI - General Adult General Chief complaint: Nausea/Vomiting/Diarrhea Stated complaint: nausea/vomiting Time Seen by Provider: 11/17/22 21:14 History of Present Illness HPI narrative: Patient 77-year-old female who presents the emergency department complaint of nausea and vomiting. Patient reports that she was seen in emergency departments in [place] on the and patient reports that she is continue to have nausea and vomiting and has been unable to keep anything down patient reports that her emesis is coffee-ground's type color since the onset of symptoms. The patient also reports that she has had abdominal cramping with this. Patient denies fever reports that she feels extremely dehydrated and reports that her symptoms are not improved by anything. Related Data Home Medications Medication Instructions Recorded Confirmed carbidopa ER 50 mg-levodopa 200 mg 1 tablet PO ONCE 02/28/19 11/16/22 tablet,extended release letrozole 2.5 mg tablet 2.5 mg PO DAILY 10/02/19 11/16/22 zoledronic acid 4 mg/5 mL 1 mg IV ONCE 10/02/19 11/16/22 intravenous solution biotin 1,000 mcg chewable tablet 1,000 mcg PO DAILY 05/28/20 11/16/22 calcium carbonate 390 mg calcium 390 mg PO DAILY 05/28/20 11/16/22 (1,000 mg) tablet calcium carbonate 600 mg-vitamin cap PO DAILY 05/28/20 11/16/22 D3 12.5 mcg (500 unit) capsule (Calcium 600 with Vitamin D3) carbidopa 25 mg-levodopa 100 mg 1 tablet PO TID 05/28/20 11/16/22 tablet coenzyme Z17-[id number] E 100 mg-100 cap PO DAILY 05/28/20 11/16/22 unit capsule multivitamin (Daily Multi-Vitamin 1 tablet PO DAILY 05/28/20 11/16/22 tablet) potassium 99 mg tablet mg PO 05/28/20 11/16/22 vitamin E (dl, acetate) 450 mg 4,000 mg PO DAILY 05/28/20 11/16/22 (1,000 unit) capsule quetiapine 25 mg tablet 50 mg PO DAILY 01/15/22 11/16/22 Allergies Allergy/AdvReac Type Severity Reaction Status Date / Time ciprofloxacin Allergy Unknown Difficulty Verified 11/17/22 21:11 Breathing levofloxacin Allergy Unknown Difficulty Verified 11/17/22 21:11 Breathing Review of Systems Review of Systems: A 10 system review of systems was completed on the patient and is negative except for what is stated in the HPI. Nursing and ancillary documentation was reviewed. PMFSH Past Medical History Medical History Bilateral hand pain Cancer Fibromyalgia Generalized osteoarthritis of multiple sites History of frequent headaches Lupus Osteoporosis screening Undifferentiated connective tissue disease Vitamin D deficiency Surgical History Surgical History H/O mastectomy left H/O total hysterectomy Family History Family History Grandparent Family history of cardiovascular disease Carcinoma of colon Family history of emphysema Family history of thoracic aortic aneurysm Mother Family history of cardiac disorder Father Family history of malignant neoplasm of brain Social History Social History Smoking status: Never smoker Second hand tobacco smoke exposure: No Alcohol intake: never Substance use: never Substance use type: does not use Lack of Transportation: No Lack of Food: Never True Current Housing: I Have Housing Concerned About Future Housing: No Difficulty Paying Gas/Electric Bills: No Difficulty Paying for Meds: No Currently Unemployed: No Education: High School Diploma/GED Difficulty w/ Childcare or Family Care: No Living arrangements: with family Exam Narrative: GENERAL: Well-appearing, well-nourished, and in no acute distress. HEAD: Normocephalic, atraumatic. EYES: PERRLA and EOMI. ENT: Nares clear, no rhinorrhea or epistaxis. Dry membranes moist. NECK: Supple. CHEST: Clear to auscult
[2022-11-17] MEDS: PANTOPRAZOLE SODIUM IV 40 MG VIAL IV PUSH (23:29)
[2022-11-18] VITALS (11 sets, daily range): BP systolic 125–171; BP diastolic 73–88; PULSE 66–81; RESP 16–23; TEMP 35.8–36.5; O2SAT 96–99; BMI 32.7
--- NOTE | 2022-11-18 00:55 | PC.NURSE ---
This RN called and updated family about what room pt was being admitted to per pt request.
--- NOTE | 2022-11-18 01:15 | ADMGEN ---
This patient, Hitesh Chase, was admitted to [facility] Surg Room 330-02. Patient/family oriented to hospital policies and general routines including ID bracelet, bed and alarms, visiting hours, pain management, procedures, bathroom and other care routines, personal items, smoking policy, room service/diet, and visiting hours. Information on how to activate the Rapid Response Team has been discussed. Patient/Family are encouraged to report perceived risks to care and to ask questions if they do not understand what they are told or what they should do.
[2022-11-18] MEDS: SODIUM CHLORIDE 0.9% IV 1,000 ML 150 ML IV CONT ×2 (01:54→08:19)
--- NOTE | 2022-11-18 04:02 | PM.IMHP ---
H&P: HPI History of Present Illness Date/Time: 11/18/22 04:02 Chief Complaint: Vomiting Narrative: 77-year-old female with a past medical history of Parkinson's disease, peripheral neuropathy, GERD, prior esophageal ulcer and osteoporosis who presented to the ER with intractable nausea vomiting. The patient reports that she was in [place] visiting her daughter could recently moved there when she began having vomiting. She went to the ER on the and 05 of November for intractable vomiting. She reports that she was having ?black coffee-ground? emesis. She reports that most the time this is what her emesis consisted of and was this color from the start. She denied any frankly bloody emesis. She never adding time had any hematochezia or melena. She has not been having any accompanying abdominal pain. She has been having a mild headache. She denies any fevers or chills. She states that she had similar symptoms many years ago whenever she had a spot on her esophagus that required a patch. She got in touch with her primary care provider who has made a referral for Gastroenterology but she has not yet been able to get in. The patient does not have a history of anemia and in fact her hemoglobin has been consistently elevated on prior labs as far back as 2019. She has had multiple colonoscopies in the past but her most recent colon cancer screening was a Cologuard. She reports that she usually has to get up 3 times a night to urinate and has trouble falling back asleep. She denies any dysuria or hematuria. She has still been you producing urine. In the ER labs were significant for polycythemia and elevated urine specific gravity. She has been taking her oral dissolving Zofran as directed but she reports that she feels like this makes her nausea worse that time. She states that it also leave her with a burning and sour sensation in her mouth. Review of Systems Review of Systems: 12 systems were reviewed with pertinent positives and negatives per HPI. Except as documented in the HPI, all other systems were reviewed and are negative. [facility] Past Medical History Medical History (Updated 11/18/22 @ 09:25 by Mary Crain, DO) Bilateral hand pain Cancer of left breast Fibromyalgia Generalized osteoarthritis of multiple sites History of frequent headaches Hypertriglyceridemia Lupus Osteoporosis Parkinson disease Seasonal allergies Undifferentiated connective tissue disease Vitamin D deficiency Surgical History Surgical History (Updated 11/18/22 @ 09:25 by Mary Crain DO) H/O mastectomy left H/O total hysterectomy Family History Family History Grandparent Family history of cardiovascular disease Carcinoma of colon Family history of emphysema Family history of thoracic aortic aneurysm Mother Family history of cardiac disorder Father Family history of malignant neoplasm of brain Social History Social History (Updated 11/18/22 @ 09:30 by Mary Crain DO) Social History: She has been for 35 years. 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 she rarely drinks alcohol and only in small amounts. She is a lifelong nonsmoker. She denies any illicit substance use of any type. Code status: Full code Surrogate decision maker: Carlee () Smoking status: Never smoker Second hand tobacco smoke exposure: No Alcohol intake: never Substance use: never Substance use type: does not use Lack of Transportation: YES Lack of Food: Never True Current Housing: I Have Housing Concerned About Future Housing: No Difficulty Paying Gas/Electric Bills: No Difficulty Paying for Meds: No Currently Unemployed: No Education: High School Diploma/GED Difficulty w/ Childcare or Family Care: No Living arrangements: with family Spiritual care concerns: No
--- NOTE | 2022-11-18 07:14 | WPDGICN ---
Assessment and Plan Assessment and plan (1) Nausea & vomiting: Code(s): R11.2 - Nausea with vomiting, unspecified Status: Acute Assessment and Plan: she has had persistent nausea vomiting for 3 weeks beginning 2 days after arriving in [place]. She has not had fever. EGD will be performed today. She is receiving her 3rd L of IV fluids. (2) Dehydration: Code(s): E86.0 - Dehydration Status: Acute Assessment and Plan: she is on her 3rd bag of IV fluids and finally her tongue is not dry. (3) Coffee ground emesis: Code(s): K92.0 - Hematemesis Status: Acute Assessment and Plan: On some occasions her emesis has contained coffee-ground type material. Plan EGD will be performed today GI Consult Note Consult date/time: 11/18/22 07:14 HPI: Hitesh Chase is a 77 year old female Who presented emergency room with refractory vomiting and nausea. She states that she help move her daughter to [place] a few weeks ago and after having dinner 2 days she developed severe nausea vomiting. She went to an emergency room and was given IV fluids and sent home a couple days later because of the symptoms persisting she went back to hospital and was admitted overnight. She had a CT scan that was reported as negative. She has not had diarrhea cramping abdominal pain fever or chills. She has not had other gastrointestinal symptoms recently. She has lost 15 lb however since the symptoms began 3 weeks ago. She many years ago she had developed a perforation of her esophagus requiring emergency surgery and placement of a graft. She denies dysphagia. Review of Systems Review of Systems: All systems reviewed & are unremarkable except as noted in HPI and below PMFSH Past Medical History Medical History Bilateral hand pain Cancer Fibromyalgia Generalized osteoarthritis of multiple sites History of frequent headaches Lupus Osteoporosis screening Undifferentiated connective tissue disease Vitamin D deficiency Surgical History Surgical History H/O mastectomy left H/O total hysterectomy Family History Family History Grandparent Family history of cardiovascular disease Carcinoma of colon Family history of emphysema Family history of thoracic aortic aneurysm Mother Family history of cardiac disorder Father Family history of malignant neoplasm of brain Social History Social History Smoking status: Never smoker Second hand tobacco smoke exposure: No Alcohol intake: never Substance use: never Substance use type: does not use Lack of Transportation: YES Lack of Food: Never True Current Housing: I Have Housing Concerned About Future Housing: No Difficulty Paying Gas/Electric Bills: No Difficulty Paying for Meds: No Currently Unemployed: No Education: High School Diploma/GED Difficulty w/ Childcare or Family Care: No Living arrangements: with family Spiritual care concerns: No Meds Home Medications and Allergies Home Medications Medication Instructions Recorded Confirmed Type carbidopa ER 50 mg-levodopa 200 mg 1 tablet PO HS 02/28/19 11/18/22 History tablet,extended release letrozole 2.5 mg tablet 2.5 mg PO DAILY 10/02/19 11/18/22 History zoledronic acid 4 mg/5 mL 1 mg IV ONCE 10/02/19 11/18/22 History intravenous solution biotin 1,000 mcg chewable tablet 1,000 mcg PO DAILY 05/28/20 11/18/22 History calcium carbonate 600 mg-vitamin 1 cap PO DAILY 05/28/20 11/18/22 History D3 12.5 mcg (500 unit) capsule (Calcium 600 with Vitamin D3) carbidopa 25 mg-levodopa 100 mg 1 tablet PO TID 05/28/20 11/18/22 History tablet coenzyme [id number]-[id number] E 100 mg-100 1 cap PO DAILY 05/28/20 11/18/22 History unit capsule
[2022-11-18 07:17] LABS: Basophils Percent Auto 0.5 % (0.2-1.2); Eosinophils Percent Auto 0.5 % (0-4.4); Hematocrit 40.8 % (37.0-47.0); Hemoglobin 13.5 g/dL (12.0-15.0); Immature Granulocyte Absolute 0.02 K/mm3 (0.00-0.031); Immature Granulocyte Percent A 0.4 % (0-0.5); Lymphocytes Absolute Auto 1.36 K/mm3 (0.9-3.2); Lymphocytes Percent Auto 24.4 % (18.3-44.2); Mean Corpuscular HGB Conc 33.1 g/dl (32-36); Mean Corpuscular Hemoglobin 32.2 pg (26-34); Mean Corpuscular Volume 97.4 fl (80-100); Mean Platelet Volume 10.2 fl (7.4-10.4); Monocytes Absolute Auto 0.7 K/mm3 (0.1-0.6); Monocytes Percent Auto 12.9 % (2.6-8.5); Neutrophils Absolute Auto 3.4 K/mm3 (1.3-6.7); Neutrophils Percent Auto 61.3 % (45.5-73.1); Platelet Count Result 249 k/mm3 (150-375); Red Blood Count 4.19 M/mm3 (4.2-5.4); Red Cell Distribution Width 12.3 % (11.5-14.5); White Blood Count 5.6 K/mm3 (4.5-10.0)
[2022-11-18 07:30] LABS: Anion Gap 3 mmol/L (8-16); Blood Urea Nitrogen 6 mg/dL (7-17); Calcium 8.1 mg/dL (8.4-10.2); Carbon Dioxide 25 mmol/L (22-30); Chloride 106 mmol/L (98-107); Estimated CRCL calculation 80 ml/min; Estimated Glomerular Filt Rate > 60; Glucose 94 mg/dL (65-110); Potassium 3.7 mmol/L (3.4-5.0); Sodium 134 mmol/L (137-145)
[2022-11-18] MEDS: PANTOPRAZOLE SODIUM IV 40 MG VIAL IV PUSH ×2 (08:15→20:31)
[2022-11-18] MEDS: LACTATED RINGERS 1,000 ML 150 ML IV CONT (13:14)
--- NOTE | 2022-11-18 13:48 | PC.NURSE ---
To MURALI Andres per wheelchair around 1300, IV 22 R FA. Spoke to Vivian at 1121.
--- NOTE | 2022-11-18 13:55 | WPDANESEPPF ---
Anes - Initial Pre Proc Eval Procedure: Operation Date: 11/18/22 14:15 Proposed Procedures p Esophagogastroduodenoscopy - Shoaib Fraga MD Date/Time: 11/18/22 13:55 Surgeon: Mary Crain DO Pre Op Diagnosis: Dehydration,Nausea & Vomiting,Gastritis Patient Data Age: 77 Gender: F Height: 1.57 m Weight: 81.2 kg Last Vital Signs Temp 97.7 F 11/18/22 13:07 Pulse 67 11/18/22 13:07 Resp 19 11/18/22 13:07 BP 149/75 H 11/18/22 13:07 Pulse Ox 99 11/18/22 13:07 O2 Del Method Room Air 11/18/22 13:07 Allergies Allergy/AdvReac Type Severity Reaction Status Date / Time ciprofloxacin Allergy Unknown Difficulty Verified 11/18/22 13:04 Breathing levofloxacin Allergy Unknown Difficulty Verified 11/18/22 13:04 Breathing Home Medications Medication Instructions Recorded Confirmed Type carbidopa ER 50 mg-levodopa 200 mg 1 tablet PO HS 02/28/19 11/18/22 History tablet,extended release letrozole 2.5 mg tablet 2.5 mg PO DAILY 10/02/19 11/18/22 History zoledronic acid 4 mg/5 mL 1 mg IV ONCE 10/02/19 11/18/22 History intravenous solution biotin 1,000 mcg chewable tablet 1,000 mcg PO DAILY 05/28/20 11/18/22 History calcium carbonate 600 mg-vitamin 1 cap PO DAILY 05/28/20 11/18/22 History D3 12.5 mcg (500 unit) capsule (Calcium 600 with Vitamin D3) carbidopa 25 mg-levodopa 100 mg 1 tablet PO TID 05/28/20 11/18/22 History tablet coenzyme M50-peecyow E 100 mg-100 1 cap PO DAILY 05/28/20 11/18/22 History unit capsule multivitamin (Daily Multi-Vitamin 1 tablet PO DAILY 05/28/20 11/18/22 History tablet) vitamin E (dl, acetate) 450 mg 4,000 mg PO DAILY 05/28/20 11/18/22 History (1,000 unit) capsule metoclopramide HCl 10 mg tablet 10 mg PO Q6H PRN nausea and 12/09/20 11/18/22 Rx (Reglan) vomiting #10 tabs quetiapine 25 mg tablet 50 mg PO HS 01/15/22 11/18/22 History gabapentin 600 mg tablet 600 mg PO Q6H #360 tabs 07/09/22 11/18/22 Rx pantoprazole 40 mg tablet,delayed See Rx Instructions .Route 07/24/22 11/18/22 Rx release .COMPLEX #90 tabs ondansetron 4 mg disintegrating 4 mg PO Q8H PRN nausea and 08/17/22 11/18/22 Rx tablet vomiting #10 tabs Laboratory Tests 11/17/22 11/17/22 11/17/22 20:30 21:35 22:20 WBC 5.0 K/mm3 (4.5-10.0) RBC 4.79 M/mm3 (4.2-5.4) Hgb 15.4 H g/dL (12.0-15.0) Hct 45.3 % (37.0-47.0) MCV 94.6 fl (80-100) MCH 32.2 pg (26-34) MCHC 34.0 g/dl (32-36) RDW 12.2 % (11.5-14.5) Plt Count 297 k/mm3 (150-375) MPV 10.7 H fl (7.4-10.4) Immature Gran % (Auto) 0.0 % (0-0.5) Neut % (Auto) 73.9 H % (45.5-73.1) Lymph % (Auto) 17.9 L % (18.3-44.2) Chambers % (Auto) 8.0 % (2.6-8.5) Eos % (Auto) 0.0 % (0-4.4) Baso % (Auto) 0.2 % (0.2-1.2) Lymph # (Auto) 0.89 L K/mm3 (0.9-3.2) Chambers # (Auto) 0.4 K/mm3 (0.1-0.6) Eos # (Auto) 0.0 K/mm3 (0-0.3) Baso # (Auto) 0.0 K/mm3 (0.0-0.1) Abs Immat Gran (auto) 0.00 K/mm3 (0.00-0.031) Absolute Neuts (auto) 3.7 K/mm3 (1.3-6.7) Absolute Nucleated RBC 0.0 K/mm3 (0.0-0.012) Nucleated RBC % 0.0 % (0.0-0.2) Sodium 136 L mmol/L (137-145) Potassium 3.6 mmol/L (3.4-5.0) Chloride 102 mmol/L (98-107) Carbon Dioxide 22 mmol/L (22-30) Anion Gap 12 mmol/L (8-16) BUN 10 D mg/dL (7-17) Creatinine 0.60 L mg/dL (0.7-1.0) Estim Creat Clear Calc 68 ml/min Estimated GFR > 60 (59 - ) Glucose 137 H mg/dL (65-110) Lactic Acid 1.5 mmol/L (0.7-2.0) Calcium 9.4 mg/dL (8.4-10.2) Total Bilirubin 0.8 mg/dL (0.2-1.3) AST 27 U/L (14-36) ALT 21 U/L (6-35) Alkaline Phosphatase 58 U/L
--- NOTE | 2022-11-18 13:59 | P.PNAN_ITS ---
Anes - Initial Pre Proc Eval Procedure: Operation Date: 11/18/22 14:15 Proposed Procedures p Esophagogastroduodenoscopy - Shoaib Fraga MD Date/Time: 11/18/22 13:59 Surgeon: Mary Crain DO Pre Op Diagnosis: Dehydration,Nausea & Vomiting,Gastritis Patient Data Age: 77 Gender: F Height: 1.57 m Weight: 81.2 kg Last Vital Signs Temp 97.7 F 11/18/22 13:07 Pulse 67 11/18/22 13:07 Resp 19 11/18/22 13:07 BP 149/75 H 11/18/22 13:07 Pulse Ox 99 11/18/22 13:07 O2 Del Method Room Air 11/18/22 13:07 Allergies Allergy/AdvReac Type Severity Reaction Status Date / Time ciprofloxacin Allergy Unknown Difficulty Verified 11/18/22 13:04 Breathing levofloxacin Allergy Unknown Difficulty Verified 11/18/22 13:04 Breathing Home Medications Medication Instructions Recorded Confirmed Type carbidopa ER 50 mg-levodopa 200 mg 1 tablet PO HS 02/28/19 11/18/22 History tablet,extended release letrozole 2.5 mg tablet 2.5 mg PO DAILY 10/02/19 11/18/22 History zoledronic acid 4 mg/5 mL 1 mg IV ONCE 10/02/19 11/18/22 History intravenous solution biotin 1,000 mcg chewable tablet 1,000 mcg PO DAILY 05/28/20 11/18/22 History calcium carbonate 600 mg-vitamin 1 cap PO DAILY 05/28/20 11/18/22 History D3 12.5 mcg (500 unit) capsule (Calcium 600 with Vitamin D3) carbidopa 25 mg-levodopa 100 mg 1 tablet PO TID 05/28/20 11/18/22 History tablet coenzyme E65-ayipyxi E 100 mg-100 1 cap PO DAILY 05/28/20 11/18/22 History unit capsule multivitamin (Daily Multi-Vitamin 1 tablet PO DAILY 05/28/20 11/18/22 History tablet) vitamin E (dl, acetate) 450 mg 4,000 mg PO DAILY 05/28/20 11/18/22 History (1,000 unit) capsule metoclopramide HCl 10 mg tablet 10 mg PO Q6H PRN nausea and 12/09/20 11/18/22 Rx (Reglan) vomiting #10 tabs quetiapine 25 mg tablet 50 mg PO HS 01/15/22 11/18/22 History gabapentin 600 mg tablet 600 mg PO Q6H #360 tabs 07/09/22 11/18/22 Rx pantoprazole 40 mg tablet,delayed See Rx Instructions .Route 07/24/22 11/18/22 Rx release .COMPLEX #90 tabs ondansetron 4 mg disintegrating 4 mg PO Q8H PRN nausea and 08/17/22 11/18/22 Rx tablet vomiting #10 tabs Laboratory Tests 11/17/22 11/17/22 11/17/22 20:30 21:35 22:20 WBC 5.0 K/mm3 (4.5-10.0) RBC 4.79 M/mm3 (4.2-5.4) Hgb 15.4 H g/dL (12.0-15.0) Hct 45.3 % (37.0-47.0) MCV 94.6 fl (80-100) MCH 32.2 pg (26-34) MCHC 34.0 g/dl (32-36) RDW 12.2 % (11.5-14.5) Plt Count 297 k/mm3 (150-375) MPV 10.7 H fl (7.4-10.4) Immature Gran % (Auto) 0.0 % (0-0.5) Neut % (Auto) 73.9 H % (45.5-73.1) Lymph % (Auto) 17.9 L % (18.3-44.2) Walsh % (Auto) 8.0 % (2.6-8.5) Eos % (Auto) 0.0 % (0-4.4) Baso % (Auto) 0.2 % (0.2-1.2)
--- NOTE | 2022-11-18 15:10 | PM.IMPN ---
Progress Note: A&P Assessment and Plan (1) Intractable nausea and vomiting: Code(s): R11.2 - Nausea with vomiting, unspecified Status: Acute Assessment and Plan: The patient reports intractable nausea vomiting. She still remains nauseated despite having no further vomiting after being admitted to the floor. IV fluid hydration. Pantoprazole 40 mg IV Daily Continue antiemetics with Compazine. GI consulted. EGD performed today revealing gastritis and hiatal hernia. (2) Dehydration: Code(s): E86.0 - Dehydration Status: Acute Assessment and Plan: IV fluid hydration. Patient's labs are much improved. IV fluids can discontinue after she can tolerate diet. (3) Coffee ground emesis: Code(s): K92.0 - Hematemesis Status: Acute Assessment and Plan: Given the report of possible coffee-ground emesis GI has been consulted. However given the patient does have hemoconcentration with evidence of polycythemia in think is most likely that the patient's emesis was bilious in nature and less likely to be coffee-ground in nature. Will place patient on Protonix daily. H&H has remained stable. Continue to monitor. (4) Parkinson disease: Code(s): G20 - Parkinson's disease Status: Acute Assessment and Plan: Will resume the patient's home Parkinson's medications. Subjective Date/time seen: 11/18/22 15:10 Interval history: Patient feeling much better today. She denies any nausea, vomiting and abdominal pain. She reports no black stools or occult blood in the stool. She had EGD performed today and plan to advance diet as tolerated. EGD revealed gastritis. Review of Systems Review of Systems: All systems reviewed & are unremarkable except as noted in HPI and below Exam Narrative: GENERAL: Comfortable, no acute distress HENMT: moist mucous membranes EYES: EOM intact b/l NECK: no lymphadenopathy RESPIRATORY: clear to auscultation CARDIO: RRR GI: soft, nontender, bowel sounds present SKIN: no rashes EXTREMITIES: no edema, redness or tenderness Objective Data Vital Signs Vital Signs: Vital Signs - 24 hr 11/17/22 20:15 11/17/22 21:07 11/17/22 21:17 Temperature 97.8 F Pulse Rate 87 78 78 Respiratory Rate 14 20 18 Blood Pressure 146/84 H 160/97 H 145/90 H Pulse Oximetry 100 100 99 Oxygen Delivery Room Air 11/17/22 22:04 11/17/22 22:21 11/17/22 22:22 Temperature Pulse Rate 82 91 91 Respiratory Rate 18 22 H 23 H Blood Pressure 153/77 H 182/97 H 180/92 H Pulse Oximetry 96 95 Oxygen Delivery 11/17/22 22:31 11/17/22 23:16 11/18/22 00:01 Temperature Pulse Rate 83 84 81 Respiratory Rate 24 H 23 H 19 Blood Pressure 140/84 171/83 H 171/87 H Pulse Oximetry 94 98 98 Oxygen Delivery 11/18/22 00:47 11/18/22 01:13 11/18/22 04:55 Temperature 97 F L 97.2 F L Pulse Rate 66 80 77 Respiratory Rate 21 H 16 16 Blood Pressure 125/88 169/87 H 165/80 H Pulse Oximetry 96 97 96 Oxygen Delivery 11/18/22 13:07 11/18/22 08:15 11/18/22 14:50 Temperature 97.7 F Pulse Rate 67 74 Respiratory Rate 19 18 Blood Pressure 149/75 H 130/74 Pulse Oximetry 99 97 Oxygen Delivery Room Air Room Air Room Air 11/18/22 15:00 Temperature Pulse Rate 73 Respiratory Rate 23 H Blood Pressure 136/78 Pulse Oximetry 96 Oxygen Delivery Room Air Intake/Output Intake/Output: Intake & Output 11/15/22 11/16/22 11/17/22 11/18/22 23:59 23:59 23:59 23:59 Intake Total 1000 2500 Output Total 600 Balance 1000 1900 Meds/Results Medications: Active Medications Generic Name Dose Route Start Last Admin Trade Name Vinicius PRN Reason Stop Dose Admin Carbidopa/Levodopa 1 tablet 11/18/22 13:00 11/18/22 12:15 Carbidopa/Levodopa 25/100 Mg Tablet PO Not Given TID LEIGH Carbidopa/Levodopa 1 tablet 11/18/22 21:00 Carbidopa/Levodopa 25/100 Mg Cr Tablet PO HS LEIGH Gabapentin 600 mg
--- NOTE | 2022-11-18 15:13 | PC.NURSE ---
Returned from GI Lab via stretcher at 1510. Report received from BETI Matamoros .
[2022-11-18] MEDS: CARBIDOPA/LEVODOPA 25/100 MG TABLET 1 TABLET PO (16:37)
[2022-11-18] MEDS: SODIUM CHLORIDE 0.9% IV 1,000 ML 75 ML IV CONT (18:33)
[2022-11-18] MEDS: GABAPENTIN 300 MG CAPSULE 600 MG PO ×2 (18:35→23:50)
--- NOTE | 2022-11-18 19:00 | PC.NURSE ---
On 11/18/22, the SUPERVISOR FITTING, Araseli Marin, provided care and completed [email or web address] documentation on this patient. I have reviewed the SUPERVISOR FITTING's documentation and agree with the findings.
[2022-11-18] MEDS: CARBIDOPA/LEVODOPA 25/100 MG CR TABLET 1 TABLET PO (20:31)
[2022-11-18] MEDS: QUEtiapine FUMARATE 25 MG TABLET 50 MG PO (20:31)
[2022-11-18] MEDS: ACETAMINOPHEN 325 MG TABLET 650 MG PO (20:45)
[2022-11-19] MEDS: SODIUM CHLORIDE 0.9% IV 1,000 ML 75 ML IV CONT (05:44)
[2022-11-19] MEDS: GABAPENTIN 300 MG CAPSULE 600 MG PO ×2 (05:44→11:57)
[2022-11-19 06:00] VITALS: BP 107/62; PULSE 52; RESP 18; TEMP 35.7; O2SAT 94
--- NOTE | 2022-11-19 06:47 | WPDGIPROGNO ---
Progress Note: A&P Assessment and Plan (1) Nausea & vomiting: Code(s): R11.2 - Nausea with vomiting, unspecified Status: Acute Assessment and Plan: she has had persistent nausea vomiting for 3 weeks beginning 2 days after arriving in [place]. She has not had fever. EGD will be performed today. She is receiving her 3rd L of IV fluids. she does not have much appetite but the nausea is improving. (2) Dehydration: Code(s): E86.0 - Dehydration Status: Acute Assessment and Plan: Dehydration seems to have resolved with generous repletion by IV fluids (3) Coffee ground emesis: Code(s): K92.0 - Hematemesis Status: Acute Assessment and Plan: On some occasions her emesis has contained coffee-ground type material. 11/19/2022 EGD revealed severe esophagitis which is likely the source of her coffee-ground emesis. (4) Erosive esophagitis: Code(s): K22.10 - Ulcer of esophagus without bleeding Status: Acute Assessment and Plan: her esophagitis was severe in the distal 10 cm. This could all be from persistent vomiting over the past 3 weeks. Biopsies were obtained and results are pending. There was a transit could be viral or other infectious etiology. We will treat accordingly but for now put on b.i.d. PPI Plan if tolerates diet today which should be a a let her go home. Subjective Date/time seen: 11/19/22 06:47 she took a few sips of water last night. She is still not hungry again and is nauseated. She is willing to try something at breakfast time. We discussed results of her endoscopy. The only significant finding was severe esophagitis which may have been from her several weeks of vomiting. Exam Const: General: cooperative and healthy appearing Orientation/consciousness: patient oriented x3 HENMT: Head: normal to inspection Ears: hearing grossly normal bilaterally Mouth: Yes Normal oral and palatal mucosa present Eyes: General: appearance normal, both eyes and all related structures Neck: Neck: normal visual inspection Chest: Chest palpation & inspection: normal inspection of the chest Resp: Effort & Inspection: normal respiratory effort Auscultation: clear to auscultation bilaterally Cardio: Rate: regular rate Rhythm: regular rhythm GI: Inspection: normal to inspection GI Palp: Yes Soft to palpation, No Tenderness to palpation present (GI) and Yes No hepatosplenomegaly present Auscultation: normal bowel sounds Skin: General skin exam: normal color and no jaundice Neuro: General: patient oriented x3 Speech: normal speech Objective Data Vital Signs Vital Signs: Vital Signs - 24 hr 11/18/22 13:07 11/18/22 08:15 11/18/22 14:50 Temperature 36.5 C Pulse Rate 67 74 Respiratory Rate 19 18 Blood Pressure 149/75 H 130/74 Pulse Oximetry 99 97 Oxygen Delivery Room Air Room Air Room Air 11/18/22 15:00 11/18/22 15:10 11/18/22 16:00 Temperature 36.4 C L Pulse Rate 73 68 75 Respiratory Rate 23 H 18 16 Blood Pressure 136/78 147/81 H 129/73 Pulse Oximetry 96 97 97 Oxygen Delivery Room Air Room Air 11/18/22 20:00 11/18/22 22:00 Temperature 35.8 C L Pulse Rate 75 66 Respiratory Rate 16 18 Blood Pressure 138/78 Pulse Oximetry 97 97 Oxygen Delivery Room Air Intake/Output Intake/Output: Intake & Output 11/16/22 11/17/22 11/18/22 11/19/22 23:59 23:59 23:59 23:59 Intake Total 1000 3100 1000 Output Total 950 Balance 1000 2150 1000 Meds/Results Medications: Active Medications Generic Name Dose Route Start Last Admin Trade Name Landryq PRN Reason Stop Dose Admin Acetaminophen 650 mg 11/18/22 20:36 11/18/22 20:45 Acetaminophen 325 Mg Tablet PO 650 mg Q4H PRN Administration Mild Pain (1-3) or Fever Carbidopa/Levodopa 1 tablet 11/18/22 13:00 11/18/22 16:37 Carbidopa/Levodopa 25/100 Mg Tablet PO 1 tablet TID LEIGH Administration Carbidopa/Levodopa 1 tablet 08
[2022-11-19 08:01] LABS: Alanine Aminotransferase 6 U/L (6-35); Albumin Level 2.8 g/dL (3.5-5.1); Alkaline Phosphatase 36 U/L (38-126); Anion Gap 2 mmol/L (8-16); Aspartate Amino Transferase 21 U/L (14-36); Bilirubin,Total 0.9 mg/dL (0.2-1.3); Blood Urea Nitrogen 9 mg/dL (7-17); Carbon Dioxide 25 mmol/L (22-30); Chloride 106 mmol/L (98-107); Estimated CRCL calculation 59 ml/min; Estimated Glomerular Filt Rate > 60; Glucose 73 mg/dL (65-110); Potassium 3.2 mmol/L (3.4-5.0); Sodium 133 mmol/L (137-145)
[2022-11-19 08:02] LABS: Basophils Percent Auto 0.8 % (0.2-1.2); Eosinophils Absolute Auto 0.1 K/mm3 (0-0.3); Eosinophils Percent Auto 3.6 % (0-4.4); Hematocrit 38.4 % (37.0-47.0); Hemoglobin 12.5 g/dL (12.0-15.0); Immature Granulocyte Absolute 0.01 K/mm3 (0.00-0.031); Immature Granulocyte Percent A 0.3 % (0-0.5); Lymphocytes Percent Auto 33.6 % (18.3-44.2); Mean Corpuscular HGB Conc 32.6 g/dl (32-36); Mean Corpuscular Hemoglobin 31.6 pg (26-34); Mean Corpuscular Volume 97.2 fl (80-100); Mean Platelet Volume 10.9 fl (7.4-10.4); Monocytes Absolute Auto 0.5 K/mm3 (0.1-0.6); Monocytes Percent Auto 12.9 % (2.6-8.5); Neutrophils Absolute Auto 1.9 K/mm3 (1.3-6.7); Neutrophils Percent Auto 48.8 % (45.5-73.1); Platelet Count Result 226 k/mm3 (150-375); Red Blood Count 3.95 M/mm3 (4.2-5.4); Red Cell Distribution Width 12.2 % (11.5-14.5); White Blood Count 3.9 K/mm3 (4.5-10.0)
--- NOTE | 2022-11-19 09:24 | WPDANESPN ---
Anes - Prog Note Post-Op Date/Time: 11/19/22 09:24 Cardiovascular status: normal Respiratory status: normal Airway patency: baseline Mental status: baseline Post-Op hydration status: normal Vital Signs: Last Vital Signs Temp 35.7 C L 11/19/22 06:00 Pulse 52 L 11/19/22 06:00 Resp 18 11/19/22 06:00 BP 107/62 11/19/22 06:00 Pulse Ox 94 11/19/22 06:00 O2 Del Method Room Air 11/18/22 20:00 Pain Score (VAS): 0 I/O: Intake & Output 11/18/22 11/19/22 11/19/22 23:59 07:59 15:59 Intake Total 600 1000 360 Output Total 350 Balance 250 1000 360 Laboratory Tests 11/19/22 07:23 11/19/22 07:23 11/19/22 07:23 WBC 3.9 L RBC 3.95 L Hgb 12.5 Hct 38.4 MCV 97.2 MCH 31.6 MCHC 32.6 RDW 12.2 Plt Count 226 MPV 10.9 H Immature Gran % (Auto) 0.3 Neut % (Auto) 48.8 Lymph % (Auto) 33.6 [place] % (Auto) 12.9 H Eos % (Auto) 3.6 Baso % (Auto) 0.8 Lymph # (Auto) 1.30 [place] # (Auto) 0.5 Eos # (Auto) 0.1 Baso # (Auto) 0.0 Abs Immat Gran (auto) 0.01 Absolute Neuts (auto) 1.9 Absolute Nucleated RBC 0.0 Nucleated RBC % 0.0 Sodium 133 L Potassium 3.2 L Chloride 106 Carbon Dioxide 25 Anion Gap 2 L BUN 9 Creatinine 0.70 Estim Creat Clear Calc 59 Estimated GFR > 60 Glucose 73 Calcium 8.0 L Total Bilirubin 0.9 AST 21 ALT 6 Alkaline Phosphatase 36 L Total Protein 5.0 L Albumin 2.8 L Microbiology 11/17/22 22:20 Urine Clean Catch Urine Culture - Final Post-procedural complaints: none Patient Feedback: Patient satisfied with anesthetic care.
[2022-11-19] MEDS: LETROZOLE (*CHEMO) 2.5 MG TABLET PO (09:35)
[2022-11-19] MEDS: CARBIDOPA/LEVODOPA 25/100 MG TABLET 1 TABLET PO ×2 (09:35→13:27)
[2022-11-19] MEDS: POTASSIUM CHLORIDE 20 MEQ PACKET (FOR LIQUID) 40 MEQ PO (09:37)
[2022-11-19] MEDS: PANTOPRAZOLE SODIUM IV 40 MG VIAL IV PUSH (09:42)
[2022-11-19] MEDS: PROCHLORPERAZINE EDISYLATE 10 MG/2 ML VIAL IV PUSH (10:26)
[2022-11-19 14:05] VITALS: BP 118/69; PULSE 64; RESP 18; TEMP 36.9; O2SAT 94
--- NOTE | 2022-11-19 16:01 | PM.DS ---
DS: Admitting Diagnosis Discharge Date 11/19/22 Admitting Diagnosis Intractable nausea vomiting DS: Discharge Diagnosis Discharge Diagnosis (1) Intractable nausea and vomiting: Code(s): R11.2 - Nausea with vomiting, unspecified Status: Acute Assessment and Plan: The patient reports intractable nausea vomiting. She still remains nauseated despite having no further vomiting after being admitted to the floor. IV fluid hydration. Pantoprazole 40 mg IV Daily Continue antiemetics with Compazine. GI consulted. EGD performed today revealing gastritis and hiatal hernia. (2) Dehydration: Code(s): E86.0 - Dehydration Status: Acute Assessment and Plan: IV fluid hydration. Patient's labs are much improved. IV fluids can discontinue after she can tolerate diet. (3) Coffee ground emesis: Code(s): K92.0 - Hematemesis Status: Acute Assessment and Plan: Given the report of possible coffee-ground emesis GI has been consulted. However given the patient does have hemoconcentration with evidence of polycythemia in think is most likely that the patient's emesis was bilious in nature and less likely to be coffee-ground in nature. Will place patient on Protonix daily. H&H has remained stable. Continue to monitor. (4) Parkinson disease: Code(s): G20 - Parkinson's disease Status: Acute Assessment and Plan: Will resume the patient's home Parkinson's medications. DS: Summary Hospital Course Hospital Course: This is a 77 year with past medical history of Parkinson's disease, peripheral neuropathy, GERD and prior esophageal ulcer and osteoporosis of present to the ER on 11/18/2022 due to intractable nausea vomiting. Patient went to the ER on the 30 of October and the 05 of November due to the same reasons where she was discharged from. She had been experiencing coffee ground emesis. On arrival patient's hemoglobin hematocrit was stable. GI was consulted. Patient underwent EGD on 11/18/2022 EGD showed possible infectious esophagitis and biopsies were taken. Patient was restarted on diet and tolerated well. Discussed case with GI doctor and he stated that he will contact patient with biopsy results if she needs to be put on any medication at this time. She will be discharged home on pantoprazole 40 mg twice daily. Labs and vital signs are stable she is medically there for discharge. Time Spent with Patient Time attestation: Total time spent providing and/or coordinating discharge services: Exam Narrative: GENERAL: Comfortable, no acute distress HENMT: moist mucous membranes EYES: EOM intact b/l NECK: no lymphadenopathy RESPIRATORY: clear to auscultation CARDIO: RRR GI: soft, nontender, bowel sounds present SKIN: no rashes EXTREMITIES: no edema, redness or tenderness DS: Data Data Completed and Pending Pending studies at discharge: Pending at discharge 11/18/22 14:42 Surgical [PTH] Routine Labs on day of discharge: Labs from last 24 hours 11/19/22 07:23 WBC 3.9 L RBC 3.95 L Hgb 12.5 Hct 38.4 MCV 97.2 MCH 31.6 MCHC 32.6 RDW 12.2 Plt Count 226 MPV 10.9 H Immature Gran % (Auto) 0.3 Neut % (Auto) 48.8 Lymph % (Auto) 33.6 [place] % (Auto) 12.9 H Eos % (Auto) 3.6 Baso % (Auto) 0.8 Lymph # (Auto) 1.30 [place] # (Auto) 0.5 Eos # (Auto) 0.1 Baso # (Auto) 0.0 Abs Immat Gran (auto) 0.01 Absolute Neuts (auto) 1.9 Absolute Nucleated RBC 0.0 Nucleated RBC % 0.0 Sodium 133 L Potassium 3.2 L Chloride 106 Carbon Dioxide 25 Anion Gap 2 L BUN 9 Creatinine 0.70 Estim Creat Clear Calc 59 Estimated GFR > 60 Glucose 73 Calcium 8.0 L Total Bilirubin 0.9 AST 21 ALT 6 Alkaline Phosphatase 36 L Total Protein 5.0 L Albumin 2.8 L Discharge Plan Discharge Attending physician on discharge: Jennifer Marie Consulting providers: Shoaib Fraga Discharging Clinician: Stacy
--- NOTE | 2022-11-19 16:13 | PC.NURSE ---
On 11/19/22, the RESIDENTIAL CONSTRUCTION INSTRUCTOR, Araseli Marin, provided care and completed [employer] documentation on this patient. I have reviewed the RESIDENTIAL CONSTRUCTION INSTRUCTOR's documentation and agree with the findings.
== END 2022-11-19 17:50 | disposition home or self-care (01) ==
LOC: ANHED 11-18 00:19 → ANH3MEDSUR 11-18 07:53
PROVIDERS: Internal Medicine Critical Care Medicine; Internal Medicine Gastroenterology; Admitting Provider Internal Medicine; Emergency Provider Emergency Medicine; PCP Family Medicine; Visit Provider Family Medicine
PROC: 0DJ08ZZ Inspection of Upper Intestinal Tract, Via Natural or Artificial Opening Endoscopic (ICD-10-PCS; CPT 43235; principal; 2022-11-18 14:15)
DX: K21.00 Gastro-esophageal reflux disease with esophagitis, without bleeding (principal); K44.9 Diaphragmatic hernia without obstruction or gangrene; E86.0 Dehydration; K92.0 Hematemesis; G20 Parkinson's disease; K29.70 Gastritis, unspecified, without bleeding; G62.9 Polyneuropathy, unspecified; D75.1 Secondary polycythemia; R35.1 Nocturia; M81.0 Age-related osteoporosis without current pathological fracture; K21.9 Gastro-esophageal reflux disease without esophagitis; R51.9 Headache, unspecified; M79.7 Fibromyalgia; M32.9 Systemic lupus erythematosus, unspecified; M35.9 Systemic involvement of connective tissue, unspecified; E55.9 Vitamin D deficiency, unspecified; Z79.899 Other long term (current) drug therapy
CPT/HCPCS: 43239; 36415; 74177; 80048; 80053; 81001; 83605; 83690; 84484; 85025; 86850; 86900; 86901; 87081; 87086; 88305; 88313; 96361; 96374; 96375; 96376; 99285; A9270; C9113; G0378; J0780; J1200; J2001; J2704; J7030; J7120; Q9967

== ENCOUNTER 2022-12-01 09:28 | Outpatient (CLI) | payer MEDICARE, SELFPAY ==
[2022-12-01 19:34] LABS: Hematocrit 43.8 % (37.0-47.0); Hemoglobin 13.7 g/dL (12.0-15.0); Mean Corpuscular HGB Conc 31.3 g/dl (32-36); Mean Corpuscular Volume 102.3 fl (80-100); Mean Platelet Volume 11.5 fl (7.4-10.4); Platelet Count Result 238 k/mm3 (150-375); Red Blood Count 4.28 M/mm3 (4.2-5.4); Red Cell Distribution Width 12.9 % (11.5-14.5); White Blood Count 3.6 K/mm3 (4.5-10.0)
[2022-12-01 19:50] LABS: Anion Gap 5 mmol/L (8-16); Blood Urea Nitrogen 12 mg/dL (7-17); Calcium 9.1 mg/dL (8.4-10.2); Carbon Dioxide 30 mmol/L (22-30); Chloride 105 mmol/L (98-107); Estimated Glomerular Filt Rate > 60; Glucose 96 mg/dL (65-110); Potassium 4.2 mmol/L (3.4-5.0); Sodium 140 mmol/L (137-145)
== END 2022-12-01 09:29 | disposition home or self-care (01) ==
PROVIDERS: PCP Nurse Practitioner Adult Health; Visit Provider Nurse Practitioner Adult Health
DX: E87.6 Hypokalemia (principal); D72.819 Decreased white blood cell count, unspecified
CPT/HCPCS: 36415; 80048; 85027

== ENCOUNTER 2023-02-23 09:05 | Outpatient (CLI) | payer MEDICARE, SELFPAY ==
--- NOTE | ~2023-02-23 | XR_ITS ---
Left wrist Technique: PA and lateral views were obtained. Clinical History: Injury Findings: No acute fracture or dislocation is seen. There is moderate degenerative change of the firs t CMC joint. Soft tissues are unremarkable. Impression: No fracture or dislocation. Moderate degenerative change of the first CMC joint. Reviewed, dictated and finalized at [facility]. UNT STRATEGIST Impression: No fracture or dislocation. Moderate degenerative change of the first CMC joint.
--- NOTE | ~2023-02-23 | XR_ITS ---
Left Hand Technique: PA and lateral views were obtained. Clinical History: Injury Findings: No acute fracture or dislocation is seen. There is moderate degenerative change the first C MC joint. There is mild degenerative change of the interphalangeal joints of the third digit. Soft ti ssues are unremarkable. Impression: No fracture or dislocation. Degenerative changes, as above. Reviewed, dictated and finalized at location . IDE PLANT CABLE ENGINEER Impression: No fracture or dislocation. Degenerative changes, as above.
== END 2023-02-23 09:06 | disposition home or self-care (01) ==
PROVIDERS: PCP Nurse Practitioner Adult Health; Visit Provider Nurse Practitioner Adult Health
DX: M19.042 Primary osteoarthritis, left hand (principal); M19.041 Primary osteoarthritis, right hand
CPT/HCPCS: 73100; 73120

== ENCOUNTER 2023-03-02 10:28 | Outpatient (CLI) | payer MEDICARE, SELFPAY ==
[2023-03-02 20:16] LABS: Anion Gap 6 mmol/L (8-16); Blood Urea Nitrogen 18 mg/dL (7-17); Calcium 9.6 mg/dL (8.4-10.2); Carbon Dioxide 32 mmol/L (22-30); Chloride 103 mmol/L (98-107); Cholesterol 169 mg/dL (0-200); Estimated Glomerular Filt Rate > 60; Glucose 96 mg/dL (65-110); HDL Direct 38 mg/dL; Potassium 4.5 mmol/L (3.4-5.0); Sodium 141 mmol/L (137-145); Triglycerides 158 mg/dL (<150)
[2023-03-02 20:27] LABS: LDL Cholesterol Direct 99 mg/dL
== END 2023-03-02 10:29 | disposition home or self-care (01) ==
LOC: ANHBWCLAB 10:29
PROVIDERS: PCP Nurse Practitioner Adult Health; Visit Provider Nurse Practitioner Adult Health
DX: E87.6 Hypokalemia (principal); E66.9 Obesity, unspecified
CPT/HCPCS: 36415; 80048; 80061

== ENCOUNTER 2023-08-31 09:03 | Outpatient (CLI) | payer MEDICARE, SELFPAY ==
[2023-08-31 18:43] LABS: Hematocrit 46.9 % (37.0-47.0); Hemoglobin 14.9 g/dL (12.0-15.0); Mean Corpuscular HGB Conc 31.8 g/dl (32-36); Mean Corpuscular Hemoglobin 31.4 pg (26-34); Mean Corpuscular Volume 98.9 fl (80-100); Mean Platelet Volume 11.7 fl (7.4-10.4); Platelet Count Result 215 k/mm3 (150-375); Red Blood Count 4.74 M/mm3 (4.2-5.4); Red Cell Distribution Width 12.1 % (11.5-14.5); White Blood Count 3.5 K/mm3 (4.5-10.0)
[2023-08-31 19:13] LABS: Vitamin D 25 Hydroxy 65.6 ng/mL
[2023-08-31 20:56] LABS: Alanine Aminotransferase 9 U/L (6-35); Alkaline Phosphatase 64 U/L (38-126); Anion Gap 5 mmol/L (4-12); Aspartate Amino Transferase 82 U/L (14-36); Bilirubin,Total 0.6 mg/dL (0.2-1.3); Blood Urea Nitrogen 19 mg/dL (7-17); Calcium 9.4 mg/dL (8.4-10.2); Carbon Dioxide 29 mmol/L (22-30); Chloride 104 mmol/L (98-107); Estimated Glomerular Filt Rate > 60; Glucose 97 mg/dL (65-110); Sodium 138 mmol/L (137-145)
== END 2023-08-31 09:04 | disposition home or self-care (01) ==
PROVIDERS: PCP Nurse Practitioner Adult Health; Visit Provider Nurse Practitioner Adult Health
DX: M32.9 Systemic lupus erythematosus, unspecified (principal); E55.9 Vitamin D deficiency, unspecified; D72.819 Decreased white blood cell count, unspecified
CPT/HCPCS: 36415; 80053; 82306; 85027

== ENCOUNTER 2023-09-08 07:16 | Emergency (ER) | payer MEDICARE, SELFPAY ==
[2023-09-08] VITALS (10 sets, daily range): BP systolic 128–169; BP diastolic 67–98; PULSE 65–87; RESP 18; TEMP 36.7; O2SAT 94–100
[2023-09-08 07:39] LABS: Basophils Percent Auto 0.1 % (0.2-1.2); Hematocrit 45.7 % (37.0-47.0); Hemoglobin 15.2 g/dL (12.0-15.0); Immature Granulocyte Absolute 0.01 K/mm3 (0.00-0.031); Immature Granulocyte Percent A 0.1 % (0-0.5); Lymphocytes Percent Auto 16.4 % (18.3-44.2); Mean Corpuscular HGB Conc 33.3 g/dl (32-36); Mean Corpuscular Hemoglobin 31.5 pg (26-34); Mean Corpuscular Volume 94.8 fl (80-100); Mean Platelet Volume 10.8 fl (7.4-10.4); Monocytes Absolute Auto 0.5 K/mm3 (0.1-0.6); Monocytes Percent Auto 6.8 % (2.6-8.5); Neutrophils Absolute Auto 5.6 K/mm3 (1.3-6.7); Neutrophils Percent Auto 76.6 % (45.5-73.1); Platelet Count Result 216 k/mm3 (150-375); Red Blood Count 4.82 M/mm3 (4.2-5.4); Red Cell Distribution Width 11.9 % (11.5-14.5); White Blood Count 7.3 K/mm3 (4.5-10.0)
[2023-09-08 07:53] LABS: Appearance Urine Clear (Clear); Bacteria Urine None Seen /hpf; Bilirubin Urine Negative (Negative); Blood Urine Negative (Negative); Color Urine Yellow (Yellow); Glucose Urine UA Negative (Negative); Ketones Urine 2+ mg/dL (Negative); Leukocyte Esterase Ur 3+ LEU/UL (Negative); Nitrate Urine Negative (Negative); Non Pathogenic Casts 0-2; Protein Urine Trace mg/dL (Negative); RBC Urine 0-2 /hpf (0-2); Specific Grav Ur 1.025 (1.001-1.035); Squamous Epithelial Cell Urine None Seen /hpf (Few); WBC Urine 51-100 /hpf (0-3)
[2023-09-08 07:54] LABS: Alanine Aminotransferase 25 U/L (6-35); Albumin Level 4.5 g/dL (3.5-5.1); Alkaline Phosphatase 64 U/L (38-126); Anion Gap 8 mmol/L (4-12); Aspartate Amino Transferase 27 U/L (14-36); Blood Urea Nitrogen 17 mg/dL (7-17); Calcium 9.2 mg/dL (8.4-10.2); Carbon Dioxide 25 mmol/L (22-30); Chloride 106 mmol/L (98-107); Estimated Glomerular Filt Rate > 60; Glucose 135 mg/dL (65-110); Lipase 45 U/L (23-300); Potassium 3.7 mmol/L (3.4-5.0); Sodium 139 mmol/L (137-145)
[2023-09-08 07:58] LABS: Add Urine Microscopic? YES
--- NOTE | 2023-09-08 08:31 | ED.NAVMDI ---
HPI - Nausea/Vomiting/Diarrhea General Chief complaint: Nausea/Vomiting/Diarrhea Stated complaint: vomiting all night Time Seen by Provider: 09/08/23 08:28 Source: patient Limitations: no limitations History of Present Illness HPI Narrative: Patient presents with nausea and vomiting starting since yesterday at approximately 12 noon. She denies any abdominal pain or associated diarrhea. Upon my exam she states that it was black in color and her noted that it had the appearance of coffee-grounds. She states this has happened before and she had an EGD performed when she lived in [place] several years ago but unknown findings of this procedure. She denies any known liver dysfunction such as cirrhosis and she denies any alcohol use. She states she normally takes ondansetron p.r.n. at home which she trialed but did not help. Related Data Home Medications Medication Instructions Recorded Confirmed carbidopa ER 50 mg-levodopa 200 mg 1 tablet PO HS 02/28/19 08/31/23 tablet,extended release letrozole 2.5 mg tablet 2.5 mg PO DAILY 10/02/19 08/31/23 zoledronic acid 4 mg/5 mL 1 mg IV ONCE 10/02/19 08/31/23 intravenous solution calcium carbonate 600 mg-vitamin 1 cap PO DAILY 05/28/20 08/31/23 D3 12.5 mcg (500 unit) capsule (Calcium 600 with Vitamin D3) carbidopa 25 mg-levodopa 100 mg 1 tablet PO TID 05/28/20 08/31/23 tablet coenzyme [id number] 100 mg-100 1 cap PO DAILY 05/28/20 08/31/23 unit capsule multivitamin (Daily Multi-Vitamin 1 tablet PO DAILY 05/28/20 08/31/23 tablet) vitamin E (dl, acetate) 450 mg 4,000 mg PO DAILY 05/28/20 08/31/23 (1,000 unit) capsule Allergies Allergy/AdvReac Type Severity Reaction Status Date / Time ciprofloxacin Allergy Unknown Difficulty Verified 09/08/23 07:31 Breathing levofloxacin Allergy Unknown Difficulty Verified 09/08/23 07:31 Breathing PMFSH Past Medical History Medical History (Updated 09/08/23 @ 11:53 by Kindra Flynn MD) Bilateral hand pain Cancer of left breast Fibromyalgia Generalized osteoarthritis of multiple sites History of frequent headaches Hypertriglyceridemia Lupus Osteoporosis Parkinson disease Seasonal allergies Undifferentiated connective tissue disease Vitamin D deficiency Surgical History Surgical History H/O mastectomy left H/O total hysterectomy History of esophagogastroduodenoscopy (EGD) ([place]) Family History Family History Grandparent Family history of cardiovascular disease Carcinoma of colon Family history of emphysema Family history of thoracic aortic aneurysm Mother Family history of cardiac disorder Father Family history of malignant neoplasm of brain Social History Social History Social History: She has been for 35 years. 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 she rarely drinks alcohol and only in small amounts. She is a lifelong nonsmoker. She denies any illicit substance use of any type. Code status: Full code Surrogate decision maker: Carlee () Smoking status: Never smoker Second hand tobacco smoke exposure: No Alcohol intake: never Substance use: never Substance use type: does not use Lack of Transportation: YES Lack of Food: Never True Current Housing: I Have Housing Concerned About Future Housing: No Difficulty Paying Gas/Electric Bills: No Difficulty Paying for Meds: No Currently Unemployed: No Education: High School Diploma/GED Difficulty w/ Childcare or Family Care: No Living arrangements: with family Spiritual care concerns: No Exam Narrative: GENERAL: Well-appearing, well-nourished, and in no acute distress. HEAD: Normocephalic, atraumatic. EYES: Non injec
[2023-09-08] MEDS: ONDANSETRON INJ 4 MG/2 ML VIAL IV PUSH (08:36)
[2023-09-08] MEDS: SODIUM CHLORIDE 0.9% IV 1,000 ML 999 ML IV CONT (08:36)
--- NOTE | 2023-09-08 08:55 | ECG_ITS ---
SEE SCANNED COPY FOR CONFIRMED REPORT MTDD
[2023-09-08] MEDS: PANTOPRAZOLE SODIUM IV 40 MG VIAL 80 MG IV PUSH (09:03)
[2023-09-08 09:22] LABS: Influenza A QL RT-PCR Negative (Negative); Influenza B QL RT-PCR Negative (Negative); SARS-CoV-2 RNA PCR Negative (Negative)
[2023-09-08 09:23] LABS: Partial Thromboplastin Time 26.5 Seconds (22.3-36.8); Prothrombin Time 13.6 Seconds (11.1-14.7)
[2023-09-08 09:28] LABS: NT Pro B Type Natriuretic Pept 685 pg/mL (19.9-100)
[2023-09-08] MEDS: PROCHLORPERAZINE EDISYLATE 10 MG/2 ML VIAL IV PUSH (09:58)
[2023-09-08 11:39] LABS: Hematocrit 47.4 % (37.0-47.0); Hemoglobin 14.8 g/dL (12.0-15.0)
== END 2023-09-08 12:10 | disposition home or self-care (01) ==
PROVIDERS: Emergency Provider Student in an Organized Health Care Education/Training Program; PCP Nurse Practitioner Adult Health
DX: R73.9 Hyperglycemia, unspecified (principal); K92.0 Hematemesis; R82.998 Other abnormal findings in urine; Z20.822 Contact with and (suspected) exposure to COVID-19; E78.1 Pure hyperglyceridemia; E55.9 Vitamin D deficiency, unspecified; G20.A1 Parkinson's disease without dyskinesia, without mention of fluctuations; M79.7 Fibromyalgia; M19.90 Unspecified osteoarthritis, unspecified site; M81.0 Age-related osteoporosis without current pathological fracture; M32.9 Systemic lupus erythematosus, unspecified; M35.9 Systemic involvement of connective tissue, unspecified; Z85.3 Personal history of malignant neoplasm of breast; Z90.12 Acquired absence of left breast and nipple; Z90.710 Acquired absence of both cervix and uterus
CPT/HCPCS: 36415; 80053; 81001; 83690; 83735; 83880; 85014; 85018; 85025; 85610; 85730; 87086; 87088; 87636; 93005; 96365; 96375; 99284; C9113; J0696; J0780; J2405; J7030

== ENCOUNTER 2023-09-20 11:29 | Outpatient (CLI) | payer MEDICARE, SELFPAY ==
[2023-09-20 18:34] LABS: Hematocrit 45.1 % (37.0-47.0); Hemoglobin 14.6 g/dL (12.0-15.0)
== END 2023-09-20 11:30 | disposition home or self-care (01) ==
LOC: ANHBWCLAB 11:31
PROVIDERS: PCP Nurse Practitioner Adult Health; Visit Provider Student in an Organized Health Care Education/Training Program
DX: K92.0 Hematemesis (principal)
CPT/HCPCS: 36415; 85014; 85018

== ENCOUNTER 2024-01-06 10:15 | Outpatient (RCR) | payer MEDICARE, SELFPAY ==
--- NOTE | 2023-12-03 09:38 | OTOPEVAL1 ---
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 She reports difficulties opening jars, gripping, holding plates, and lifting a skillet. Reported Pain Level Pain Score 8: Self Report Assessment OT Clinical Summary Patient referred to OT with left 1st CMC OA. She presents with functional limitations due to pain and weakness. Today a hand based thumb spica orthosis was fabricated and fitted to patient and she reports relief with it on. Issued active ROM HEP. Continued skilled OT indicated for HEP progression, education on joint protection techniques, therapeutic activities, manual therapy , modalities, and progression to strengthening to facilitate optimal functional use of her left hand . Plan of Care Interventions Therapeutic Exercise,Manual Therapy,Therapeutic Activities,Hot Pack/Cold Pack,Check Out for Orthotic/Pr,Ultrasound,Paraffin OT Services Indicated Yes Treatment Frequency and 1x/week for 5 visits Duration These treatments will address the objective and functional deficits as defined above. The patient will be advanced safely and appropriately in order for the patient to progress towards his/her prior level of function. Additional exercises will be introduced and as well as a comprehensive home exercise program upon discharge, if needed, ?to ensure carryover of functional gains achieved in the clinic. This treatment plan has been reviewed and agreement upon by the patient.
--- NOTE | 2023-12-03 09:38 | OPREHPOC ---
Outpatient Therapy Plan of Care This is a Multidisciplinary Plan of Care that may contain components documented by all disciplines (PT, OT, and ST.) OT Problem 1 OT Problem #1 Knowledge Deficit OT Goal 1 Goal 1. Patient to be independent with HEP and splint wearing schedule. OT Problem 2 OT Problem #2 Pain OT Goal 1 Goal 1. Patient to report reduced pain in the left thumb, noting no instances of 10/10 pain. Target Visit 5 OT Problem 3 OT Problem #3 Impaired Strength OT Goal 1 Goal 1. Patient to be able to complete left heel layer/pinch strengthening with giron putty x5 minutes with pain less than 2/10. 2. patient to be indep. with CMC stabilization HEP with rubber bands. Target Visit 5
--- NOTE | 2024-01-06 10:55 | OTOPDC ---
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 She reports improvements with light tasks such as lifting plates, doing dishes, and folding laundry. She continues to report difficulties with heavier gripping and lifting tasks such as opening jars and lifting a skillet. She reports good compliance with orthotic wearing, she likes the support it provides. Reported Pain Level Pain Score 1: Self Report Additional Pain Score Comments Patient reports pain levels are reduced. Today she is walking in at 1/10. At the start of care she was regularly at 8/10, having 10/10 at times. She reports her pain does get down to 0/10 at times and that she has had no instances of 10/10 pain in the last week. Assessment OT Clinical Summary Patient referred to OT with left 1st CMC OA. She has made progress with therapy, noting less pain and improved functional use. She is currently independent with HEP for ROM and gentle strengthening. She plans to continue to wear her thumb spica for support as needed. Discharging OT today with patient independent with all materials. Plan of Care OT Services Indicated No
== END 2024-01-06 13:25 | disposition home or self-care (01) ==
LOC: ANHOT 10:15
PROVIDERS: PCP Nurse Practitioner Adult Health; Visit Provider Physician Assistant Surgical
DX: M18.12 Unilateral primary osteoarthritis of first carpometacarpal joint, left hand (principal)
CPT/HCPCS: 97018; 97110; 97140; 97165; L3913

== ENCOUNTER 2024-03-02 09:33 | Outpatient (CLI) | payer MEDICARE, SELFPAY ==
[2024-03-02 19:27] LABS: Hematocrit 47.8 % (37.0-47.0); Hemoglobin 15.9 g/dL (12.0-15.0); Mean Corpuscular HGB Conc 33.3 g/dl (32-36); Mean Corpuscular Hemoglobin 32.6 pg (26-34); Mean Platelet Volume 11.3 fl (7.4-10.4); Platelet Count Result 244 k/mm3 (150-375); Red Blood Count 4.88 M/mm3 (4.2-5.4)
[2024-03-02 19:38] LABS: Alanine Aminotransferase 9 U/L (6-35); Albumin Level 4.2 g/dL (3.5-5.1); Alkaline Phosphatase 60 U/L (38-126); Anion Gap 7 mmol/L (4-12); Aspartate Amino Transferase 119 U/L (14-36); Bilirubin,Total 0.8 mg/dL (0.2-1.3); Blood Urea Nitrogen 16 mg/dL (7-17); Calcium 9.8 mg/dL (8.4-10.2); Carbon Dioxide 29 mmol/L (22-30); Chloride 102 mmol/L (98-107); Cholesterol 210 mg/dL (0-200); Estimated Glomerular Filt Rate > 60; Glucose 106 mg/dL (65-110); HDL Direct 40 mg/dL; Potassium 4.3 mmol/L (3.4-5.0); Sodium 138 mmol/L (137-145); Triglycerides 243 mg/dL (<150)
[2024-03-02 19:49] LABS: LDL Cholesterol Direct 124 mg/dL
[2024-03-02 21:23] LABS: Vitamin D 25 Hydroxy 64.9 ng/mL
== END 2024-03-02 09:34 | disposition home or self-care (01) ==
LOC: ANHBWCLAB 09:35
PROVIDERS: PCP Nurse Practitioner Adult Health; Visit Provider Nurse Practitioner Adult Health
DX: M32.9 Systemic lupus erythematosus, unspecified (principal); E55.9 Vitamin D deficiency, unspecified; E78.1 Pure hyperglyceridemia
CPT/HCPCS: 36415; 80053; 80061; 82306; 85027

== ENCOUNTER 2024-03-30 08:56 | Outpatient (CLI) | payer MEDICARE, SELFPAY ==
--- NOTE | ~2024-03-30 | US_ITS ---
Limited Abdominal Sonogram: Real-time sonographic imaging of the right upper quadrant was performed. Clinical History: Abnormal serum enzyme levels Findings: The liver appears normal with no evidence of mass lesion or bile duct dilatation. Main por harjeet vein demonstrates normal direction of flow. The gallbladder is well distended, and appears normal with no evidence of gallstone or wall thickening. The common bile duct measures 4 mm. The visualize d pancreas, aorta, and IVC are unremarkable. Impression: No significant abnormality seen. Reviewed, dictated and finalized at location M. WATER HEATER INSTALLER Impression: No significant abnormality seen.
== END 2024-03-30 08:57 | disposition home or self-care (01) ==
PROVIDERS: PCP Nurse Practitioner Adult Health; Visit Provider Nurse Practitioner Adult Health
DX: R74.8 Abnormal levels of other serum enzymes (principal)
CPT/HCPCS: 76705

== ENCOUNTER 2024-05-17 08:50 | Outpatient (CLI) | payer MEDICARE, SELFPAY ==
[2024-05-17 20:20] LABS: Add Urine Microscopic? YES; Appearance Urine Clear (Clear); Bilirubin Urine Negative (Negative); Blood Urine Negative (Negative); Color Urine Yellow (Yellow); Glucose Urine UA Negative (Negative); Ketones Urine Trace mg/dL (Negative); Leukocyte Esterase Ur 1+ LEU/UL (Negative); Need Manual Microscopic Reviewed; Nitrate Urine Negative (Negative); Protein Urine Negative (Negative); RBC Urine 0-2 /hpf (0-2); Specific Grav Ur 1.019 (1.001-1.035); Squamous Epithelial Cell Urine None Seen /hpf (Few); Urobilinogen Urine 0.2 mg/dL (<2.0)
[2024-05-17 20:22] LABS: Bacteria Urine Trace /hpf
== END 2024-05-17 08:51 | disposition home or self-care (01) ==
LOC: ANHBWCLAB 08:51
PROVIDERS: PCP Nurse Practitioner Adult Health; Visit Provider Nurse Practitioner Adult Health
DX: R39.9 Unspecified symptoms and signs involving the genitourinary system (principal)
CPT/HCPCS: 81001; 87086

== ENCOUNTER 2024-08-31 08:46 | Outpatient (CLI) | payer MEDICARE, SELFPAY ==
--- OUTSIDE RECORDS SUMMARY | 2024-08-31 08:50 | XMS_ITS | Referral Summary ---
Author Organization [facility] Address [address] [place] [address] Care Team Providers Care Spiral Machine Operator Name Role Phone Ivan Valdez MD Primary Care Provider [phone] Encounters Date Type Department Care Team Description 06/26/2024 Orders Only [facility] [address] [place] [address] Roseanne Mccollum NP History of breast cancer (Primary Dx); Abnormal mammogram 06/23/2024 Orders Only [facility] [address] [place] [address] Roseanne Mccollum NP History of breast cancer (Primary Dx) 06/23/2024 2:25 PM NEW CAR SALES MANAGER - 06/23/2024 11:59 PM NEW CAR SALES MANAGER Hospital Encounter [facility] [address] [place] [address] Other abnormal and inconclusive findings on diagnostic imaging of breast Discharge Disposition: Discharge to home or self care 06/23/2024 10:30 AM NEW CAR SALES MANAGER Office Visit [facility] [address] [place] [address] Roseanne Mccollum NP Malignant neoplasm of female breast, unspecified estrogen receptor status, unspecified laterality, unspecified site of breast (HCC) from Last 3 Months Allergies Active Allergy Reactions Criticality Noted Date Comments Ciprofloxacin Anaphylaxis,Rash High 02/24/2013 Latex Rash Medium 02/24/2013 Levofloxacin Anaphylaxis,Rash High 02/24/2013 Medications gabapentin (NEURONTIN) 600 mg tablet 4 times daily. 8 Active ondansetron (ZOFRAN) 4 mg tablet Take 1 tablet as needed for nausea 8 Active aspirin 81 mg enteric coated tablet 1 tablet (81 mg total) daily Active multivitamin with minerals tablet 9 Active vitamin E 400 unit capsule [address] (PROTONIX) 40 mg EC tablet TAKE 1 TABLET BY MOUTH ONCE DAILY IN THE MORNING 1 Active meloxicam (MOBIC) 15 mg tablet Take 1 tablet (15 mg total) by mouth daily 2 Active benzonatate (TESSALON) 200 mg capsule TAKE 1 CAPSULE BY MOUTH THREE TIMES DAILY NEEDED FOR COUGH 3 Active QUEtiapine (SEROquel) 50 mg tablet Take 1 tablet by mouth nightly 90 tablet 3 4 Active carbidopa-levodop a CR (SINEMET CR) 50-200 mg per CR tabletIndications :Idiopathic Parkinsonism Take 1 tablet by mouth nightly 90 tablet 3 4 01/01/20 25 Active letrozole (FEMARA) 2.5 mg tabletIndications :Malignant neoplasm of female breast, unspecified estrogen receptor status, unspecified laterality, unspecified site of breast (HCC),Malignant neoplasm of upper-outer quadrant of left breast in female, estrogen receptor positive (HCC) Take 1 tablet (2.5 mg total) by mouth daily 30 tablet 11 4 Active carbidopa-levodop a (SINEMET) 25-100 mg per tablet Take 2 tablets by mouth 3 (three) times a day at 7AM, 12PM, 5PM. 180 tablet 11 5 06/28/19 26 Active Active Problems Problem Noted Date Diagnosed Date Parkinson disease 11/17/2017 Assessment & Plan (03/22/2024 9:00 PM NEW CAR SALES MANAGER): Stage 3 parkinsonism manifest since age 59 as asymmetric rest tremor, bradykinesia and rigidity with postural instabilty with good response to levodopa and no current side effects. She is currently undertreated with postural instability on pull test and falls. We will titrate levodopa accordingly and discussed potential side effects. I also recommended PT for postural instability and falls. She benefited from CR at bedtime for bothersome nighttime symptoms and instability with bathroom visits overnight. She had history of sleep fragmentation and trialed melatonin with modest benefit. She also continues quetiapine 50mg qHS without side effects which seemed to help, so we will currently continue this. This helps with initiation insomnia and LD induced hallucations which we'll need to monitor with titration of levodopa. She has some cognitive complaints which likely represent MCI. She has some generalized anxiety but this improves with music around the home. We may consider an SSRI in the future, should this become a more bothersome symptom. 1) titrate CD/LD IR to 2 tabs per dose 2) same CD/LD CR qHS, 3) same quetiapine qHS, 4) melatonin qHS, 5) daily exercise and stretching- PT Rx provided for balance/gait and FOG, 6) fall precautions Assessment & Plan (03/17/2023 12:20 PM NEW CAR SALES MANAGER): Stage 3 parkinsonism manifest since age 59 as asymmetric rest tremor, bradykinesia and rigidity with good response to levodopa and no current side effects. She is currently undertreated with postural instability on pull test and falls with additional wearing off with all doses. We will titrate levodopa accordingly and discussed potential side effects. I also recommended PT for postural instability and falls. She had history of sleep fragmentation and trialed melatonin with modest benefit. She also continues quetiapine 50mg qHS without side effects which seemed to help, so we will currently continue this She has some increasing cognitive complaints which likely represent MCI - this may also reflect an adjustment to her new home as well, but this seems disproportional. We will test for reversible etiologies. She has some generalized anxiety but this improves with music around the home. We may consider an SSRI in the future, but she's not currently interested. She is interested in research. 1) titrate CD/LD IR to 1.5 tabs per dose and call to report benefit in 4 weeks- may need to further titrate (take at now), 2) same CD/LD CR qHS, 3) same quetiapine qHS, 4) melatonin qHS, 5) daily exercise and stretching, 6) fall precautions, 7) PT Rx provided, 8) consider paroxetine in future, 9) she is interested in research- genetics (told front counter attendant), and PIB/PAND- please notify research coordinators. Assessment & Plan (08/11/2022 1:06 PM CDT): ASSESSMENT - 77 y.o. woman with Parkinson's disease for 15 years that began in 2004 at age 59 with intermittent rest tremor in one hand that responded well to medication. - Motor sxs: Doing well on current medication regimen. Will continue levodopa at the current dose. - Myoclonus: not seen today. - Sleep disruption: Responded well to quetiapine, however she has some fragmentation of sleep. She will try otc melation with current dose of Quetiapine at 50 mg. Discussed potential side effects to look out for - NPT next visit PLAN - Continue carbidopa/levodopa 25/100, 1 tab 3x/day - Continue carbidopa/levodopa CR 50/200, 1 tab at bedtime - Continue Quetiapine 50 mg and add Melatonin 10 mg at bedtime - fall precautions - continue to exercise as tolerated - Return as scheduled for following appts - Information given on APDA exercise classes Assessment & Plan (01/07/2022 12:42 PM CDT): ASSESSMENT - 76 y.o. woman with Parkinson's disease for 15 years that began in 2004 at age 59 with intermittent rest tremor in one hand that responded well to medication. - Motor sxs: Doing well on current medication regimen. The motor UPDRS score today was 23. Will continue levodopa at the current dose. - Myoclonus: not seen today. - Sleep disruption: Responded well to quetiapine, however off late this has been the biggest problem. She will try otc melation with current dose of Quetiapine, but if that is not helpful she can try Quetiapine at 50 mg. Discussed potential side effects to look out for PLAN - Continue carbidopa/levodopa 25/100, 1 tab 3x/day - Continue carbidopa/levodopa CR 50/200, 1 tab at bedtime - Increase Quetiapine to 50 mg at bedtime if otc melatonin 5 mg not helpful - fall precautions - continue to exercise as tolerated - Return around July of next year for follow up Assessment & Plan (11/20/2020 6:25 PM CDT): ASSESSMENT - 75 y.o. woman with Parkinson's disease for 15 years that began in 2004 at age 59 with intermittent rest tremor in one hand that responded well to medication. - Motor sxs: Doing well on current medication regimen. The motor UPDRS score today was 24 in Nov 2020, motor UPDRS score 23 today in August 2018 on LDOPA 300, 25 in Nov 2017 on LDOPA 200. Will continue levodopa at the current dose. - Myoclonus: not seen today. - Sleep disruption: Responded well to quetiapine. Will continue. PLAN (phrased as addressed to the patient): - Continue carbidopa/levodopa 25/100, 1 tab 3x/day - Continue carbidopa/levodopa CR 50/200, 1 tab at bedtime - Continue quetiapine 25 mg tabs, 1 tab at bedtime. This encounter's total bifp-ak-rshq time was greater than 30 minutes. I spent more than 50% of this time in counseling and/or coordination of care as documented in the note. The patient visit started at 1509 and ended at 1542. Greater than 50% of the visit was spent on counseling and coordinating care. Patient was counseled on rationale for Assessment & Plan (10/24/2019 5:07 PM CDT): Images from the original note were not included. - 74 y.o. woman with Parkinson's disease for 15 years that began in 2004 at age 59 with intermittent rest tremor in one hand that responded well to medication. - Dx: likely PD, far less likely DRD. - Motor sxs: after adding bedtime CR she is no longer falling. Will continue levodopa at the current dose. - Myoclonus: unable to assess today over the phone. - Sleep disruption: the pattern suggests mental activation by carbidopa/levodopa. Will add quetiapine. - Falls: no falls PLAN (phrased as addressed to the patient): - Start quetiapine 25 tabs, 1 tab at bedtime, to reduce your mental activation from carbidopa/levodopa (prescribed) - Continue carbidopa/levodopa 25/100, 1 tab 3x/day - Continue carbidopa/levodopa CR 50/200, 1 tab at bedtime - Contact my office in 4 weeks if your sleep is still disrupted This was a telemedicine visit with Hitesh cisneros which took place via Telephone. During the visit, I was located in the office and the patient was located at home in the state of [place]. The patient visit started at 16:38 and ended at 17:05. Greater than 50% of the video/phone call was spent on counseling and coordinating care. Patient was counseled on rationale for starting quetiapine. The patient: has been informed that the visit may not be secure and acknowledged the information. The option of participating in a telephone or video visit during the COVID-19 public health emergency was explained to them. After being given an opportunity to ask questions about and discuss this type of visit, they verbally consented to proceeding with the telephone/video visit and understand that this service replaces an office visit and they may be billed and/or responsible for any applicable copayments. Joni Valencia MD Assessment & Plan (09/22/2018 2:17 PM CDT): - 73 y.o. woman with parkinsonism for 14 years (onset in 2005 at age 59) that began as intermittent rest tremor in one hand that responded well to medication. - Dx: The most likely dx remains PD even though the low need for levodopa (200 mg/day) at the 15 year myriam is surprising. A dx of dopa-responsive dystonia could be considered a possible alternative. - Motor sxs: she experienced improved symptom coverage during the day but has wearing off in the evening and through the night. Exam stable with motor UPDRS score 23 today in August 2018 on LDOPA 300, 25 in Nov 2017 on LDOPA 200. Will add bedtime C/L CR. - Myoclonus: There was mild posture myoclonus in the arms, likely a side effect of levodopa. Not bothersome. No need to treat. - Falls: the added bedtime carbidopa/levodopa is meant to improve control of PD symptoms including balance problems and may reduce the risk of falls. PLAN (phrased as addressed to the patient): - Continue carbidopa/levodopa 25/100, 1 tab 3x/day (morning, midday, dinner) - Start carbidopa/levodopa CR 50/200, 1 tab at bedtime - This medication is meant to reduce your hand tremor at night and improve your sleep. - A possible side effect is mental activation with nightmares, which could instead disrupt your sleep further. If this happens, call my office right away. - Otherwise, call my office in 3 weeks to report on number of times you wake up at night. Malignant neoplasm of upper- outer quadrant of left breast in female, estrogen receptor positive 06/11/2017 Immunizations Immunization Administration Dates Next Due Influenza, Quadrivalent, Hig h Dose, Preservative Free, Intrr 02/09/2020 Influenza, Trivalent, High D ose, Split, Preservative Free, Intramuscular 12/29/2018,01/19/2018,01/18/2018,12/18 Moderna SARS-CoV-2 Monovalen t Vaccination (12+ YRS) 05/30/2020,05/02/2020 Pneumococcal Conjugate PCV 13 05/20/2016 ZOSTER Recombinant 02/09/2020 Social History Tobacco Use Types Packs/Day Years Used Date Smoking Tobacco: Never Smokeless Tobacco: Never Tobacco Cessation:Counseling Given: Not Answered Alcohol Use Standard Drinks/Week Comments Yes 1 (1 standard drink = 0.6 oz pur e alcohol) occ Comments No Sex and Gender Information Value Date Recorded Sex Assigned at Not on file Legal Sex Female 7:17 PM NEW CAR SALES MANAGER Gender Identity Female 05/01/2022 2:39 PM NEW CAR SALES MANAGER Sexual Orientation Straight 01/27/2020 8: 29 PM CDT Last Filed Vital Signs Vital Sign Reading Time Taken Comments Blood Pressure 127/85 06/23/2024 10:08 AM NEW CAR SALES MANAGER Pulse 71 06/23/2024 10:08 AM NEW CAR SALES MANAGER Temperature 36.3 C (97.4 F) 06/23/2024 10:08 AM NEW CAR SALES MANAGER Respiratory Rate 18 06/23/2024 10:0 8 AM NEW CAR SALES MANAGER Oxygen Saturation 97% 06/23/2024 10: 08 AM NEW CAR SALES MANAGER Inhaled Oxygen Concentration - - Weight 89.3 kg (196 lb 12.8 oz) 025 10:08 AM NEW CAR SALES MANAGER Height 158.8 cm (5' 2.5 ) 06/23/2024 2:31 PM NEW CAR SALES MANAGER Body Mass Index 35.54 06/23/2024 10:08 AM NEW CAR SALES MANAGER Plan of Treatment Not on file Procedures Procedure Name Priority Date/Time Associated Diagnosis Comments DIAGNOSTIC MAMMOGRAM RIGHT W SHAUN Schedule Routine, Read Routine (OP Routine) 06/23/2024 2:34 PM NEW CAR SALES MANAGER Other abnormal and inconclusive findings on diagnostic imaging of breast DIAGNOSTIC MAMMOGRAM BILATERAL W SHAUN Schedule Routine, Read Routine (OP Routine) 11/25/2023 12:01 PM CDT Other abnormal and inconclusive findings on diagnostic imaging of breast DEXA AXIAL SKELETON BONE DENSITY 1 OR MORE SITES Schedule Routine, Read Routine (OP Routine) 02/01/2023 10:28 AM CDT [facility] (current) use of aromatase inhibitors from Last 3 Months or Most Recently Relevant to Health Maintenance Results * Diagnostic Mammogram Right W Shaun (06/23/2024 2:34 PM NEW CAR SALES MANAGER) Anatomical Region Laterality Modality Breast Right Mammography 06/23/2024 2:51 PM NEW CAR SALES MANAGER Impressions 06/23/2024 2:51 PM NEW CAR SALES MANAGER The low-density subcentimeter masses in the right breast are stable and will continue to be classified as probably benign. A follow-up bilateral diagnostic mammogram is recommended in September 2024. This is 1 year from the patient's most recent bilateral mammogram. BI-RADS: 3 - Probably benign The patient has been or will be contacted. The patient will be entered into a reminder system with a target due date of September 2024 for her next examination. Electronically signed by: Tracie Aguila M.D. Narrative 06/23/2024 2:51 PM NEW CAR SALES MANAGER EXAMINATION: DIAGNOSTIC MAMMOGRAM RIGHT W SHAUN ORDERING HEALTHCARE PROVIDER: CHRISTO SEALS HISTORY: Follow-up probably benign mammographic lesions in the right breast. COMPARISON: 11/25/2023, 10/11/2023, 06/09/2022, 04/10/2021, 10/27/2019 TECHNIQUE: CC and MLO routine views of the bilateral were obtained with digital technique using breast tomosynthesis with C view. Computer aided detection was utilized. FINDINGS: The breast are almost entirely fatty. There are scattered benign calcifications in the right breast. The previously seen subcentimeter low-density mass is seen in the lower outer right breast anteriorly and lower inner right breast, middle depth are stable. No sonographic lesions were seen previously. These will continue to be classified as probably benign. There are no suspicious masses, calcifications, or architectural distortion in the breast. There is no significant change. [facility] IMG MAMMO PROCEDURES Final Res ult * Diagnostic Mammogram Bilateral W Shaun (11/25/2023 12:01 PM CDT) Anatomical Region Laterality Modality Breast Bilateral Mammography 11/25/2023 1:06 PM CDT Impressions 11/25/2023 1:06 PM CDT 1. Both of the 3 mm circumscribed low-density masses in the right breast (anterior lower outer and mid lower inner) are sonographically occult and probably benign. These have not suspiciously changed mammographically since May 2022 and are favored represent benign complicated/oil cysts. Short-term follow-up with right diagnostic mammogram in 6 months is recommended to assess for 2 years of stability (i.e. benignity). 2. Benign peripherally calcified oil cyst at the 12 o'clock position of the left breast, middle depth, corresponds with the calcifications of concern on screening mammogram. 3. No mammographic evidence of malignancy in the left breast. Screening mammography of the left breast in one year is recommended. BI-RADS: 3 - Probably benign I discussed these findings and recommendations with the patient at the time of the examination. Electronically signed by: Dejuan Quick M.D. Narrative 11/25/2023 1:06 PM CDT EXAMINATION: US BREAST RIGHT LIMITED, DIAGNOSTIC MAMMOGRAM BILATERAL W SHAUN ORDERING HEALTHCARE PROVIDER: [facility]ST[facility] SEALS HISTORY: 78-year-old female recalled from screening mammogram for indeterminate findings in both breasts. COMPARISON: Mammograms dated 10/11/2023, 06/09/2022, 04/10/2021, and 10/27/2019 TECHNIQUE: CC and MLO views of the bilateral breasts were obtained with digital technique using breast tomosynthesis with C view. Computer aided detection was utilized. Limited grayscale ultrasound of the right breast was performed. FINDINGS: DENSITY: The tissue of the bilateral breasts is almost entirely fatty. BREAST DENSITY: The tissue of the bilateral breasts is almost entirely fatty. MAMMOGRAM FINDINGS: There are multiple benign calcifications in the right breast, many of which are associated with benign oil cysts. A 3 mm low-density mass with partially circumscribed, partially obscured margins is confirmed in the lower outer right breast, anterior depth. A similar appearing 3 mm low-density circumscribed mass is also confirmed in the lower inner right breast, middle depth. There are no suspicious calcifications or architectural distortion associated with either of these masses. These masses have not suspiciously changed since 06/09/2022, not definitely seen on more remote mammograms. There are multiple benign calcifications in the left breast, many of which are either associated with benign oil cysts or represent benign vascular calcifications. These include an 8 mm peripherally calcified oil cyst at approximately the 12 o'clock position of the left breast, middle depth, which corresponds with the calcifications of concern noted on the September 2023 screening mammogram. There is no suspicious finding in the left breast on mammogram. ULTRASOUND FINDINGS: Targeted ultrasound of the lower outer right breast (7:00) and lower inner right breast (4-5 o'clock) demonstrate no definite correlates for the small masses seen at these locations on mammogram. Only normal breast parenchymal is identified on ultrasound at these locations. us Christo Seals NP IMG MAMMO PROCEDURES Final Res ult * Dexa Axial Skeleton Bone Density 1 or 2 Site (02/01/2023 10:28 AM CDT) Anatomical Region Laterality Modality Body N/A Other 02/01/2023 9:19 PM CDT Narrative 02/01/2023 9:23 PM CDT EXAM DESCRIPTION: DEXA AXIAL SKELETON BONE DENSITY 1 OR MORE SITES REASON FOR STUDY: 77 y/o year old F with given history of: [facility] use of AI's Screening postmenopausal Blue Leather Setter/Model: [employer] (S/N [id number]) CLINICAL INFORMATION: Current height: 62 inches Maximum height: 62 inches Weight: 183 pounds Risk factors: Adult fracture, cancer, postmenopausal COMPARISON: 05/14/2020 FINDINGS: AP LUMBAR SPINE L1-L4: Total BMD is 1.238 g/cm2 T-score is 1.7 LEFT HIP: Total BMD is 0.754 g/cm2 T-score is -1.5 Femoral neck BMD is 0.610 g/cm2 T-score is -2.2 FRAX: 10 year risk for a major osteoporotic fracture is 20 %, 10 year risk for a hip fracture is 5.0 % IMPRESSION: Low Bone Mass. REFERENCE: Bone mineral density: Normal (T-score above or = -1.0) Low bone mass (T-score between -1.0 and -2.5) replaces the previously used term osteopenia Osteoporosis (T-score = or below -2.5) Medical evaluation for secondary causes of low bone mineral density may be appropriate. FRAX is a World Health Organization validated fracture risk assessment tool that calculates a person's 10 year probability of a major osteoporosis related fracture and hip fracture. According to the National Osteoporosis Foundation guidelines, postmenopausal women and men age 50 or older with low bone mass and a 10 year probability of a major osteoporosis related fracture = or greater than 20% or a 10 year probability of a hip fracture = or greater than 3% should be considered for treatment. For further information, including treatment recommendations, please refer to the 2019 ISCD Official Positions (http://www.iscd.org) and the NOF's Clinician's Guide to Prevention and Treatment of Osteoporosis (http://www.nof.org/professionals/clinical-guidelines) THIS IS AN ELECTRONICALLY VERIFIED FINAL REPORT 02/01/2023 9:23 PM - Electronically signed by Mu Clemente M.D. MF: ABI Report ID: [id number] Reading Location: [place] [address] Procedure Note Mu Clemente MD - 02/01/2023 EXAM DESCRIPTION: DEXA AXIAL SKELETON BONE DENSITY 1 OR MORE SITES REASON FOR STUDY: 77 y/o year old F with given history of: longtermuse of AI's Screening postmenopausal Blue Leather Setter/Model: [employer] (S/N [id number]) CLINICAL INFORMATION: Current height: 62 inches Maximum height: 62 inches Weight: 183 pounds Risk factors: Adult fracture, cancer, postmenopausal COMPARISON: 05/14/2020 FINDINGS: AP LUMBAR SPINE L1-L4: Total BMD is 1.238 g/cm2 T-score is 1.7 LEFT HIP: Total BMD is 0.754 g/cm2 T-score is -1.5 Femoral neck BMD is 0.610 g/cm2 T-score is -2.2 FRAX: 10 year risk for a major osteoporotic fracture is 20 %, 10 year risk for ahip fracture is 5.0 % IMPRESSION: Low Bone Mass. REFERENCE: Bone mineral density: Normal (T-score above or = -1.0) Low bone mass (T-score between -1.0 and -2.5) replaces thepreviously used term osteopenia Osteoporosis (T-score = or below -2.5) Medical evaluation for secondary causes of low bone mineral density may be appropriate. FRAX is a World Health Organization validated fracture risk assessmenttool that calculates a person's 10 year probability of a major osteoporosisrelated fracture and hip fracture. According to the National OsteoporosisFoundation guidelines, postmenopausal women and men age 50 or older with low bonemass and a 10 year probability of a major osteoporosis related fracture = or greater than 20% or a 10 year probability of a hip fracture = or greaterthan 3% should be considered for treatment. For further information, including treatment recommendations, please referto the 2019 ISCD Official Positions (http://www.iscd.org) and the NOF's Clinician's Guide to Prevention and Treatment of Osteoporosis (http://www.nof.org/professionals/clinical-guidelines) THIS IS AN ELECTRONICALLY VERIFIED FINAL REPORT 02/01/2023 9:23 PM - Electronically signed by Mu Clemente M.D. MF: ABI Report ID: [id number] Reading Location: [id number] Roseanne Mccollum NP IMG DXA PROCEDURES Final R esult from Last 3 Months or Most Recently Relevant to Health Maintenance Insurance [employer] MEDICARE HMO HU[employer] MEDICARE HMO Care Teams Spiral Machine Operator Relationship Specialty Start Date End Date Ivan Valdez MD PCP - General 04/10/21
--- OUTSIDE RECORDS SUMMARY | 2024-08-31 08:50 | XMS_ITS | Clinical Summary ---
Author Organization [facility] Address [address] [place] [address] Phone Care Team Providers Care Investigative Assistant Name Role Phone DonArtem vaughan Annie CARDOZO Primary Care Provider [phone]- [phone] Allergies Active Allergy Reactions Criticality Noted Date Comments Ciprofloxacin Anaphylaxis 06/20/2015 Levofloxacin Anaphylaxis 06/20/2015 Medications omeprazole (PRILOSEC) 40 MG CAPSULE DELAYED RELEASE Take 40 mg by mouth daily. Active traMADol (ULTRAM) 50 MG Tablet Take 50-100 mg by mouth every 6 hours as needed for Pain. Active cyclobenzaprine (FLEXERIL) 10 MG Tablet Take 10 mg by mouth daily. Active traZODone (DESYREL) 100 MG Tablet Take 150 mg by mouth nightly. Active Aspirin 81 MG Tablet Take 81 mg by mouth daily. Active carbidopa-levodo pa (SINEMET) 25-100 MG Tablet Take 1 Tab by mouth daily. Active gabapentin (NEURONTIN) 600 MG Tablet Take 600 mg by mouth 4 times daily. Active mirtazapine (REMERON) 15 MG Tablet Take 15 mg by mouth nightly. Active HYDROcodone-acet aminophen (NORCO) 5-325 MG Tablet Take 1 Tab by mouth every 4 hours as needed for Pain. 20 Tab 0 06/20/2015 Active Encounters Date Type Department Care Team Description 07/25/2024 9:30 AM CDT Physical Therapy [facility] [address] [place] [address] Orestes Mcclain MD Middleton, Trisha M, PT Parkinson's disease, unspecified whether dyskinesia present, unspecified whether manifestations fluctuate (HCC) (Primary Dx) Discharge Disposition: Discharged to home or Selfcare 07/25/2024 Travel 07/21/2024 10:[address] AM CDT Physical [address] [facility] [address] [place] [address] Orestes Mcclain MD Stewart, James R, ARTIFICIAL BREEDING RANCH SUPERVISOR Parkinson's disease, unspecified whether dyskinesia present, unspecified whether manifestations fluctuate (HCC) (Primary Dx) Discharge Disposition: Discharged to home or Selfcare 07/21/2024 Travel 07/18/[address] [facility] [address] [place] [address] Kimberly Ponce, PT Appointment 07/17/2024 Travel 07/14/2024 9:30 AM CDT [address] [facility] [address] [place] [address] Orestes Mcclain MD Middleton, Trisha M, PT Parkinson's disease, unspecified whether dyskinesia present, unspecified whether manifestations fluctuate (HCC) (Primary Dx) Discharge Disposition: Discharged to home or Selfcare 07/14/2024 Travel 07/11/2024 9:[address] [facility] [address] [place] [address] Orestes Mcclain MD Stewart, James R, ARTIFICIAL BREEDING RANCH SUPERVISOR Parkinson's disease, unspecified whether dyskinesia present, unspecified whether manifestations fluctuate (HCC) (Primary Dx) Discharge Disposition: Discharged to home or Selfcare 07/11/2024 Travel 07/07/2024 1:[address] [facility] [address] [place] [address] Orestes Mcclain MD Middleton, Trisha M, PT Parkinson's disease, unspecified whether dyskinesia present, unspecified whether manifestations fluctuate (HCC) (Primary Dx) Discharge Disposition: Discharged to home or Selfcare 07/07/2024 Travel 07/04/2024 2:30 PM CDT Physical Therapy [facility] [address] [place] [address] Orestes Mcclain MD Middleton, Trisha M, PT Parkinson's disease, unspecified whether dyskinesia present, unspecified whether manifestations fluctuate (HCC) (Primary Dx) Discharge Disposition: Discharged to home or Selfcare 07/04/2024 Travel 06/23/2024 Plan of Care Documentation [facility] [address] [place] [address] 06/22/2024 10:00 AM BEAVER TRAPPER Physical Therapy [facility] [address] [place] [address] Orestes Mcclain MD Middleton, Trisha M, PT Parkinson's disease, unspecified whether dyskinesia present, unspecified whether manifestations fluctuate (HCC) (Primary Dx) Discharge Disposition: Discharged to home or Selfcare 06/22/2024 Travel from Last 3 Months Social History Tobacco Use Types Packs/Day Years Used Date Smoking Tobacco: Never Alcohol Use Standard Drinks/Week Comments No 0 (1 standard drink = 0.6 oz pur e alcohol) Comments No Sex and Gender Information Value Date Recorded Sex Assigned at Not on file Legal Sex Female 12:34 AM CDT Gender Identity Not on file Sexual Orientation Not on file Last Filed Vital Signs Vital Sign Reading Time Taken Comments Blood Pressure 156/73 06/20/2015 12:30 PM BEAVER TRAPPER Pulse 68 06/20/2015 2:26 PM BEAVER TRAPPER Temperature 36.2 C (97.1 F) 06/20/2015 12:30 PM BEAVER TRAPPER Respiratory Rate 18 06/20/2015 2:26 PM BEAVER TRAPPER Oxygen Saturation 95% 06/20/2015 2:26 PM BEAVER TRAPPER Inhaled Oxygen Concentration - - Weight 84.4 kg (186 lb) 06/20/2015 12:30 PM BEAVER TRAPPER Height 160 cm (5' 3 ) 06/20/2015 12:30 PM BEAVER TRAPPER Body Mass Index 32.95 06/20/2015 12:30 PM BEAVER TRAPPER Plan of Treatment Health Maintenance Due Date Last Done Comments Hepatitis C Virus (HCV) Screening 1945 TdaP Immunization 1945 Pneumococcal Immunization (50+ years) (2 of 2 - PPSV23) 05/20/2017 05/20/2016 Zoster Immunization (2 of 2) 04/05/2020 02/09/2020 Respiratory Syncytial Virus (RSV) Immunization (Adult) (1 - 1-dose 75+ series) 2022 SARS-COV-2 Immunization ( - season) 2023 02/27/2021, 05/31/2020, 05/02/2020 Influenza Immunization (Season Ended) 2024 02/09/2020, 12/29/2018, 01/18/2018, Additional history exists DEXA Bone Density 02/01/2025 02/01/2023, 05/14/2020 Colorectal Cancer Screening Discontinued Immunochemical Fecal Occult Blood Discontinued 02/24/2013 Pneumococcal Immunization Combined Discontinued 05/20/2016 Mammogram Discontinued 11/25/2023, 09/18, 06/09/2022, Additional history exists Cologuard Discontinued Colonoscopy High Risk Discontinued Colonoscopy Discontinued Hepatitis B Immunization Aged Out No longer eligible based on patient's age to complete this topic Meningococcal Immunization (ACWY) Aged Out No longer eligible based on patient's age to complete this topic Rotavirus Immunization Aged Out No lo nger eligible based on patient's age to complete this topic Insurance MEDICARE C [employer] Care Teams Investigative Assistant Relationship Specialty Start Date End Date Artem Velazquez DO [address] [place] [address] PCP - General Family Medicine 01/26/18
--- OUTSIDE RECORDS SUMMARY | 2024-08-31 08:50 | XMS_ITS | Clinical Summary ---
Author Organization [facility] Address [address] [facility] [place] [address] Phone Care Team Providers Care Mail Messenger Name Role Phone Unavailable Primary Care Provider Unavailabl e Allergies Active Allergy Reactions Criticality Noted Date Comments Ciprofloxacin Rash Low 02/24/2013 Latex Rash Low 02/24/2013 Levofloxacin Rash Low 02/24/2013 Medications naproxen sodium (ALEVE) 220 mg Tablet Take 440 mg by mouth 2 times daily. Active traMADol (ULTRAM) 50 mg tablet Take 100 mg by mouth 2 times daily. Active cyclobenzaprine (FLEXERIL) 10 mg tablet Take 10 mg by mouth daily. Active carbidopa-levod opa (SINEMET) 25-100 mg tablet Take 1 Tab by mouth daily. Active carbidopa-levod opa-entacapone (STALEVO) 50-200-200 mg Tablet Take 1 Tab by mouth 3 times daily. Active rosuvastatin (CRESTOR) 10 mg tablet Take 10 mg by mouth daily at bedtime. Active aspirin (ECOTRIN EC) 81 mg Tablet, Delayed Release (E.C.) Take 81 mg by mouth daily. Active MULTIVITAMIN ORAL Take by mouth. Active gabapentin (NEURONTIN) 600 mg tablet Take 600 mg by mouth 4 times daily. Active promethazine (PHENERGAN) 25 mg tablet Take 25 mg by mouth every 6 hours as needed. Active diphenoxylate-a tropine (LOMOTIL) 2.5-0.025 mg tablet Take 1 Tab by mouth 4 times daily as needed. Active benzonatate (TESSALON) 100 mg capsule Take 100 mg by mouth 3 times daily. Active meclizine (ANTIVERT) 25 mg tablet Take 25 mg by mouth 3 times daily as needed. Active omeprazole (PRILOSEC) 40 mg Capsule, Delayed Release(E.C.) Take 40 mg by mouth daily. Active zolpidem (AMBIEN) 10 mg tablet Take 10 mg by mouth nightly as needed. Active omeprazole (PRILOSEC) 40 mg Capsule, Delayed Release(E.C.) Take 1 Cap by mouth daily. 30 Cap None 02/24/2013 Active sucralfate (CARAFATE) 1 gram tablet Take 1 Tab by mouth 4 times daily before meals and at bedtime. 80 Tab 0 02/24/2013 Active ondansetron (ZOFRAN ODT) 8 mg Tablet, Rapid Dissolve Place 1 Tab inside cheek every 8 hours as needed for Nausea/Emesi s. 20 Tab 0 02/24/2013 Active Social History Tobacco Use Types Packs/Day Years Used Date Smoking Tobacco: Never Assessed Comments Unknown Sex and Gender Information Value Date Recorded Sex Assigned at Not on file Legal Sex Female 7:50 PM RETAIL SERVICE TECHNICIAN Gender Identity Not on file Sexual Orientation Not on file Occupation Industry Job Start Date Job End Date Not on file Not on file Not on file Not on file Last Filed Vital Signs Vital Sign Reading Time Taken Comments Blood Pressure 140/93 02/24/2013 10:35 PM RETAIL SERVICE TECHNICIAN Pulse 90 02/24/2013 7:51 PM RETAIL SERVICE TECHNICIAN Temperature 36.8 C (98.3 F) 02/24/2013 7:51 PM RETAIL SERVICE TECHNICIAN Respiratory Rate 20 02/24/2013 10:35 PM RETAIL SERVICE TECHNICIAN Oxygen Saturation 97% 02/24/2013 10:35 PM RETAIL SERVICE TECHNICIAN Inhaled Oxygen Concentration - - Weight 84.4 kg (186 lb) 02/24/2013 7:51 PM RETAIL SERVICE TECHNICIAN Height 160 cm (5' 3 ) 02/24/2013 7:51 PM RETAIL SERVICE TECHNICIAN Body Mass Index 32.95 02/24/2013 7:51 PM RETAIL SERVICE TECHNICIAN Plan of Treatment Health Maintenance Due Date Last Done Comments DTAP/TDAP/TD VACCINES (1 - Tdap) 1964 PNEUMOCOCCAL VACCINE 50+ YEARS (1 of 1 - PCV) 03/15/19 97 ZOSTER VACCINE (1 of 2) 1997 OSTEOPOROSIS SCREENING 2012 RSV VACCINE (60+ or ) (1 - 1-dose 75+ series) 2022 INFLUENZA VACCINE (#1) 2023 Colorectal Cancer Screening Discontinued FIT/FOBT Q 1 year Discontinued 02/24/2013 COLORECTAL SCREENING Discontinued FIT-DNA Q 3 years Discontinued Flex Sig/CT Colonography Q 5 years Discontinued Procedures Procedure Name Priority Date/Time Associated Diagnosis Comments POC OCCULT BLOOD 1 CARD Stat 02/24/2013 10:17 PM RETAIL SERVICE TECHNICIAN from Last 3 Months or Most Recently Relevant to Health Maintenance Results * POC OCCULT BLOOD 1 CARD (02/24/2013 10:17 PM RETAIL SERVICE TECHNICIAN) OCCULT BLOOD #1 Negative Negative Comment:control line present Stool specimen (specimen) 02/24/2013 10:17 PM RETAIL SERVICE TECHNICIAN Gabriele Head MD POINT OF CARE TESTING Final Re sult from Last 3 Months or Most Recently Relevant to Health Maintenance Insurance [facility] CHOICE PLUS
--- OUTSIDE RECORDS SUMMARY | 2024-08-31 08:50 | XMS_ITS | Clinical Summary ---
Author Organization [employer] [facility] Address [address] Attn: [place] [address] Care Team Providers Care High School Math Teacher Name Role Phone Unavailable Primary Care Provider Unavailabl e Allergies Active Allergy Reactions Criticality Noted Date Comments Ciprofloxacin Rash Low 02/24/2013 Latex Rash Low 02/24/2013 Levofloxacin Rash Low 02/24/2013 Social History Tobacco Use Types Packs/Day Years Used Date Smoking Tobacco: Never Assessed Comments Unknown Sex and Gender Information Value Date Recorded Sex Assigned at Not on file Legal Sex Female 2:01 PM WET SILK HANGER Gender Identity Not on file Sexual Orientation Not on file Plan of Treatment Health Maintenance Due Date Last Done Comments DTAP/TDAP/TD VACCINES (1 - Tdap) 1966 PNEUMOCOCCAL VACCINE 50+ YEARS (1 of 1 - PCV) 03/15/19 97 ZOSTER VACCINE (1 of 2) 1997 OSTEOPOROSIS SCREENING 2012 RSV VACCINE (60+ or ) (1 - 1-dose 75+ series) 2022 INFLUENZA VACCINE (#1) 2023
--- OUTSIDE RECORDS SUMMARY | 2024-08-31 08:50 | XMS_ITS | Clinical Summary ---
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 Assessment [...] disease for 15 years that began in 2005 at age 59 with intermittent rest tremor [...] disease for 15 years that began in 2005 at age 59 with intermittent rest tremor [...] 1 tab at bedtime. This encounter's total [id number]-[id number] time was greater than 30 minutes. I [...] disease for 15 years that began in 2005 at age 59 with intermittent rest tremor [...] located at home in the state of [place]. The patient visit started at 16:38 and [...] breast in female, estrogen receptor positive 06/11/2017 Encounters Date Type Department Care Team Description 06/26/2024 Orders Only [facility] [place] [address] [address] Roseanne Mccollum NP History of breast cancer (Primary Dx); Abnormal mammogram 06/23/2024 2:25 PM PRINTER MACHINE - 06/23/2024 11:59 PM PRINTER MACHINE Hospital Encounter [facility] [address] [place] [address] Other abnormal and inconclusive findings on diagnostic imaging of breast Discharge Disposition: Discharge to home or self care 06/23/2024 10:30 AM PRINTER MACHINE Office Visit [facility] [place] [address] Roseanne Mccollum, XIMENA Malignant neoplasm of female breast, unspecified estrogen receptor status, unspecified laterality, unspecified site of breast (HCC) 06/23/2024 Orders Only [facility] [address] [place] [address] [address] Roseanne Mccollum, XIMENA History of breast cancer (Primary Dx) from Last 3 Months Immunizations Immunization Administration Dates Next Due Influenza, Quadrivalent, Hig h Dose, Preservative Free, Intrr 02/09/2020 Influenza, Trivalent, High D ose, Split, Preservative Free, Intramuscular 12/29/2018,01/19/2018,01/18/2018,12/18 Moderna SARS-CoV-2 Monovalen t Vaccination (12+ YRS) 05/30/2020,05/02/2020 Pneumococcal Conjugate PCV 13 05/20/2016 ZOSTER Recombinant 02/09/2020 Surgical History Surgery Date Site/Laterality Comments BREAST LUMPECTOMY 04/19/2015 - 04/18/2016 Left left breast ca HYSTERECTOMY BREAST BIOPSY Left malignant Medical History Medical History Date Comments History of radiation therapy 2016 lef t breast ca Breast cancer (HCC) 2016 left Family History Medical History Relation Name Comments Brain cancer Father Ovarian cancer Mother's Sister Breast cancer Neg Hx Thyroid cancer Neg Hx Relation Name Status Comments Father Mother's Sister Social History Tobacco Use Types Packs/Day Years Used Date Smoking Tobacco: Never Smokeless Tobacco: Never Tobacco Cessation:Counseling Given: Not Answered Alcohol Use Standard Drinks/Week Comments Yes 1 (1 standard drink = 0.6 oz pur e alcohol) occ Comments No Sex and Gender Information Value Date Recorded Sex Assigned at Not on file Legal Sex Female 7:17 PM PRINTER MACHINE Gender Identity Female 05/01/2022 2:39 PM PRINTER MACHINE Sexual Orientation Straight 01/27/2020 8: 29 PM CDT Obstetrics History Para Term AB IAB SAB Ectopic Multiple Livin g Live Births 2 2 2 Date Outcome GA Total Labor Labor/2nd/3rd Weight Sex Type Anes PTL Janay A1 A5 Name Clin Term Term Last Filed Vital Signs Vital Sign Reading Time Taken Comments Blood Pressure 127/85 06/23/2024 10:08 AM PRINTER MACHINE Pulse 71 06/23/2024 10:08 AM PRINTER MACHINE Temperature 36.3 C (97.4 F) 06/23/2024 10:08 AM PRINTER MACHINE Respiratory Rate 18 06/23/2024 10:0 8 AM PRINTER MACHINE Oxygen Saturation 97% 06/23/2024 10: 08 AM PRINTER MACHINE Inhaled Oxygen Concentration - - Weight 89.3 kg (196 lb 12.8 oz) 025 10:08 AM PRINTER MACHINE Height 158.8 cm (5' 2.5 ) 06/23/2024 2:31 PM PRINTER MACHINE Body Mass Index 35.54 06/23/2024 10:08 AM PRINTER MACHINE Plan of Treatment Health Maintenance Due Date Last Done Comments Fall Risk Assessment 1945 Hepatitis C Screening 1945 DTaP/Tdap/Td Vaccine (1 - Tdap) 1958 Hepatitis B Screening 1965 Well Visit 65+ 2012 Pneumococcal vaccine 65+ (2 of 2 - PPSV23) 07/15/2016 05/20/2016 Zoster Vaccine (2 of 2) 04/05/2020 02/09/2020 Covid-19 Vaccine (3 - Modern a risk series) 06/27/2020 05/30/2020, 05/02/2020 Depression Screening 03/17/2024 03/17/2023 Influenza Vaccine (Season Ended) 2024 02/09/2020, 12/29/2018, 01/19/2018, Additional history exists Osteoporosis Screening-Bone Density Scan 02/01/2025 02/01/2023, 05/14/2020 Breast Cancer Screening-Mammogram Discontinued 11/25/2023, 10/11/2023, 06/09/2022, Additional history exists Procedures Procedure Name Priority Date/Time Associated Diagnosis Comments DIAGNOSTIC MAMMOGRAM RIGHT W SHAUN Schedule Routine, Read Routine (OP Routine) 06/23/2024 2:34 PM PRINTER MACHINE Other abnormal and inconclusive findings on diagnostic imaging of breast DIAGNOSTIC MAMMOGRAM BILATERAL W SHAUN Schedule Routine, Read Routine (OP Routine) 11/25/2023 12:01 PM CDT Other abnormal and inconclusive findings on diagnostic imaging of breast DEXA AXIAL SKELETON BONE DENSITY 1 OR MORE SITES Schedule Routine, Read Routine (OP Routine) 02/01/2023 10:28 AM CDT terminal makeup operator (current) use of aromatase inhibitors from Last 3 Months or Most Recently Relevant to Health Maintenance Results * Diagnostic Mammogram Right W Shaun (06/23/2024 2:34 PM PRINTER MACHINE) Anatomical Region Laterality Modality Breast Right Mammography 06/23/2024 2:51 PM PRINTER MACHINE Impressions 06/23/2024 2:51 PM PRINTER MACHINE The low-density subcentimeter masses in the right [...] Tracie Aguila M.D. Narrative 06/23/2024 2:51 PM PRINTER MACHINE EXAMINATION: DIAGNOSTIC MAMMOGRAM RIGHT W SHAUN ORDERING [...] breast. There is no significant change. 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 MF: ABI Report ID: [id number] Reading Location: [place] [address] Procedure Note Mu Clemente MD - 02/01/2023 EXAM DESCRIPTION: DEXA AXIAL SKELETON BONE DENSITY 1 OR MORE SITES REASON FOR STUDY: 77 y/o year old F with given history of: longtermuse of AI's Screening postmenopausal Domestic Freight Forwarder/Model: Personal [employer] Discovery SL ([id number]/N [id number]) CLINICAL INFORMATION: Current height: 62 inches Maximum [...] 02/01/2023 9:23 PM - Electronically signed by uM Clemente M.D. MF: ABI Report ID: [id number] Reading Location: [place] [address] Roseanne Mccollum NP IMG DXA PROCEDURES Final R esult from Last 3 Months or Most Recently Relevant to Health Maintenance Insurance [employer] MEDICARE HMO Real Intent MEDICARE PPO [facility] MEDICARE HMO Care Teams Clinical Medical Assistant Relationship Specialty Start Date End Date Ivan Valdez MD PCP - General 04/10/21
--- OUTSIDE RECORDS SUMMARY | 2024-08-31 08:50 | XMS_ITS ---
Author Organization [facility] Address [address] [place] [address] Care Team Providers Care Superior Court Justice Name Role Phone Ivan Valdez MD Primary Care Provider [phone] [phone] Active Problems Problem Noted Date Diagnosed Date Parkinson disease 11/17/2017 Assessment & Plan (03/22/2024 9:00 PM ROUTE DRIVER COIN MACHINES): Stage 3 parkinsonism manifest since age 59 [...] precautions Assessment & Plan (03/17/2023 12:20 PM ROUTE DRIVER COIN MACHINES): Stage 3 parkinsonism manifest since age 59 [...] is interested in research- genetics (told front office medical assistant), and PIB/PAND- please notify research coordinators. [...] 1 tab at bedtime. This encounter's total iwjg-pe-wmxr time was greater than 30 minutes. I [...] This was a telemedicine visit with Hitesh Salvatore alone which took place via Telephone. During the visit, I was located in the office and the patient was located at home in the [facility]. The patient visit started at 16:38 and [...] breast in female, estrogen receptor positive 06/11/2017 Current Treatment and Therapy Plans ZOLEDRONIC ACID (ZOMETA) INFUSION* Plan Start Date:12/22/2017 Plan Provider:Roseanne Mccollum NP Linked Problems Malignant neoplasm of upper- outer quadrant of left breast in female, estrogen receptor positive (HCC) Treatment Medications No medications scheduled. Past Treatment and Therapy Plans Specialty Infusion Treatment Plan Name Start Date Discontinue Date Treatment Medications Discontinue Reason Plan Provider IV Maintenance Therapy Plan 10/17/201 9 02/24/2023 No medications scheduled. Automatic discontinuation of dormant plans Cherelle Lemus MD
--- OUTSIDE RECORDS SUMMARY | 2024-08-31 08:50 | XMS_ITS | Encounter Summary ---
Author Organization [facility] Address [address] [place] [address] Phone Care Team Providers Care Material Crew Supervisor Name Role Phone Artem Velazquez DO Primary Care Provider [phone] Reason for Referral * PT/OT/ST (Routine) - Closed Specialty Diagnoses / Procedures Referred By Contac t Referred To Contact Physical Therapy Diagnoses Parkinson's disease, unspecified whether dyskinesia present, unspecified whether manifestations fluctuate (HCC) Orestes Mcclain MD [address] [facility] [place] [address] Phone: tel: fax: [facility] [address] [address] Phone: tel: fax: Referral ID Status Reason Start Date Expiration Date Visits Re quested Visits Authorized [id number] Closed 05/15/2024 50 11 Scheduling Instructions ONNEL ADVISER Encounter Details Date Type Department Care Team (Latest Contact Info) Description 05/15/2024 Transcribe Orders [facility] [address] [place] [address] Orestes Mcclain MD [address] [facility] [place] [address] Parkinson's disease, unspecified whether dyskinesia present, unspecified whether manifestations fluctuate (HCC) (Primary Dx) Social History Tobacco Use Types Packs/Day Years Used Date Smoking Tobacco: Never Alcohol Use Standard Drinks/Week Comments No 0 (1 standard drink = 0.6 oz pur e alcohol) Comments No Sex and Gender Information Value Date Recorded Sex Assigned at Not on file Legal Sex Female 12:34 AM CDT Gender Identity Not on file Sexual Orientation Not on file documented as of this encounter Plan of Treatment Scheduled Referrals Name Type Priority Associated Diagnoses Orde r Schedule PHYSICAL THERAPY REFERRAL Outpatient Referral Routine Parkinson's Disease, Unspecified Whether Dyskinesia Present, Unspecified Whether Manifestations Fluctuate (Hcc) Expected: 05/15/2024, Expires: 05/15/2025 documented as of this encounter Visit Diagnoses Diagnosis Parkinson's disease, unspecified whether dyskinesia present, unspecified whether manifestations fluctuate (HCC)- Primary documented in this encounter Care Teams Material Crew Supervisor Relationship Specialty Start Date End Date Artem Velazquez DO [address] [place] [address] PCP - General Family Medicine 01/26/18 documented as of this encounter
[2024-08-31 19:11] LABS: Eosinophils Absolute Auto 0.1 K/mm3 (0-0.3); Eosinophils Percent Auto 3.3 % (0-4.4); Hematocrit 45.6 % (37.0-47.0); Hemoglobin 14.3 g/dL (12.0-15.0); Immature Granulocyte Absolute 0.01 K/mm3 (0.00-0.031); Immature Granulocyte Percent A 0.3 % (0-0.5); Lymphocytes Percent Auto 46.7 % (18.3-44.2); Mean Corpuscular HGB Conc 31.4 g/dl (32-36); Mean Corpuscular Hemoglobin 31.4 pg (26-34); Mean Corpuscular Volume 100.2 fl (80-100); Mean Platelet Volume 11.8 fl (7.4-10.4); Monocytes Absolute Auto 0.4 K/mm3 (0.1-0.6); Neutrophils Absolute Auto 1.1 K/mm3 (1.3-6.7); Neutrophils Percent Auto 35.7 % (45.5-73.1); Platelet Count Result 210 k/mm3 (150-375); Red Blood Count 4.55 M/mm3 (4.2-5.4); Red Cell Distribution Width 12.8 % (11.5-14.5)
[2024-08-31 19:44] LABS: Alanine Aminotransferase 13 U/L (6-35); Alkaline Phosphatase 59 U/L (38-126); Anion Gap 9 mmol/L (4-12); Aspartate Amino Transferase 81 U/L (14-36); Bilirubin,Total 0.6 mg/dL (0.2-1.3); Blood Urea Nitrogen 16 mg/dL (7-17); Calcium 9.5 mg/dL (8.4-10.2); Carbon Dioxide 22 mmol/L (22-30); Chloride 108 mmol/L (98-107); Cholesterol 205 mg/dL (0-200); Estimated Glomerular Filt Rate > 60; Glucose 113 mg/dL (65-110); HDL Direct 43 mg/dL; Potassium 4.2 mmol/L (3.4-5.0); Sodium 139 mmol/L (137-145); Triglycerides 204 mg/dL (<150)
[2024-08-31 19:57] LABS: LDL Cholesterol Direct 108 mg/dL
[2024-08-31 21:04] LABS: Vitamin D 25 Hydroxy 75.6 ng/mL
== END 2024-08-31 08:47 | disposition home or self-care (01) ==
LOC: ANHBWCLAB 08:48
PROVIDERS: PCP Nurse Practitioner Adult Health; Visit Provider Nurse Practitioner Adult Health
DX: E78.5 Hyperlipidemia, unspecified (principal); R53.83 Other fatigue; E55.9 Vitamin D deficiency, unspecified
CPT/HCPCS: 36415; 80053; 80061; 82306; 82607; 85025

== ENCOUNTER 2024-09-06 10:30 | Outpatient (CLI) | payer MEDICARE, SELFPAY ==
--- OUTSIDE RECORDS SUMMARY | 2024-09-06 11:06 | XMS_ITS | Encounter Summary ---
Author Organization [facility] Address [address] [place] [address] Phone Care Team Providers Care Lining Parts Sewer Name Role Phone Artem Velazquez DO Primary Care Provider +1- [phone] Reason for Referral * PT/OT/ST (Routine) - Closed Specialty Diagnoses / Procedures Referred By Contac t Referred To Contact Physical Therapy Diagnoses Parkinson's disease, unspecified whether dyskinesia present, unspecified whether manifestations fluctuate (HCC) Orestes Mcclain MD [address] [facility] [place] [address] Phone: tel: fax: [facility] [address] [address] Phone: tel: fax: Referral ID Status Reason Start Date Expiration Date Visits Re quested Visits Authorized [id number] Closed 05/15/2024 50 11 Scheduling Instructions BOARDING MACHINE OPERATOR Encounter Details Date Type Department Care Team (Latest Contact Info) Description 05/15/2024 Transcribe Orders [facility] [address] [place] [address] Orestes Mcclain MD [address] [facility] [place] [address] Parkinson's disease, unspecified whether dyskinesia [...] Primary documented in this encounter Care Teams Lining Parts Sewer Relationship Specialty Start Date End Date Artem Velazquez DO [address] [place] [address] PCP - General Family Medicine 01/26/18 documented as of this encounter
--- OUTSIDE RECORDS SUMMARY | 2024-09-06 11:06 | XMS_ITS | Clinical Summary ---
Author Organization [facility] Address [address] [facility] Attn: [place] [address] Care Team Providers Care Airline Security Representative Name Role Phone Unavailable Primary Care Provider Unavailabl e Allergies Active Allergy Reactions Criticality Noted Date Comments Ciprofloxacin Rash Low 02/24/2013 Latex Rash Low 02/24/2013 Levofloxacin Rash Low 02/24/2013 Social History Tobacco Use Types Packs/Day Years Used Date Smoking Tobacco: Never Assessed Comments Unknown Sex and Gender Information Value Date Recorded Sex Assigned at Not on file Legal Sex Female 2:01 PM TRAINING MANAGER Gender Identity Not on file Sexual Orientation [...]
--- OUTSIDE RECORDS SUMMARY | 2024-09-06 11:06 | XMS_ITS | Clinical Summary ---
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 Assessment [...] 1 tab at bedtime. This encounter's total cndq-lc-luwr time was greater than 30 minutes. I [...] located at home in the state of [place]. The patient visit started at 16:38 and [...] Care Team Description 06/26/2024 Orders Only [facility] [address] [address] Roseanne Mccollum NP History of breast cancer (Primary Dx); Abnormal mammogram 06/23/2024 2:25 PM MACHINE LOAD CLERK - 06/23/2024 11:59 PM MACHINE LOAD CLERK Hospital Encounter [facility] [address] [place] [address] Other abnormal and inconclusive findings on diagnostic imaging of breast Discharge Disposition: Discharge to home or self care 06/23/2024 10:30 AM MACHINE LOAD CLERK Office Visit [facility] [place] [address] Roseanne Mccollum, XIMENA Malignant neoplasm of female breast, unspecified estrogen receptor status, unspecified laterality, unspecified site of breast (HCC) 06/23/2024 Orders Only [facility] [address] [place] [address] [address] Roseanne Mccollum, XIMENA History of breast cancer [...] on file Legal Sex Female 7:17 PM MACHINE LOAD CLERK Gender Identity Female 05/01/2022 2:39 PM MACHINE LOAD CLERK Sexual Orientation Straight 01/27/2020 8: 29 PM CDT Obstetrics History Para Term AB IAB SAB Ectopic Multiple Livin g Live Births 2 2 2 Date Outcome GA Total Labor Labor/2nd/3rd Weight Sex Type Anes PTL Janay A1 A5 Name Clin Term Term Last Filed Vital Signs Vital Sign Reading Time Taken Comments Blood Pressure 127/85 06/23/2024 10:08 AM MACHINE LOAD CLERK Pulse 71 06/23/2024 10:08 AM MACHINE LOAD CLERK Temperature 36.3 C (97.4 F) 06/23/2024 10:08 AM MACHINE LOAD CLERK Respiratory Rate 18 06/23/2024 10:0 8 AM MACHINE LOAD CLERK Oxygen Saturation 97% 06/23/2024 10: 08 AM MACHINE LOAD CLERK Inhaled Oxygen Concentration - - Weight 89.3 kg (196 lb 12.8 oz) 025 10:08 AM MACHINE LOAD CLERK Height 158.8 cm (5' 2.5 ) 06/23/2024 2:31 PM MACHINE LOAD CLERK Body Mass Index 35.54 06/23/2024 10:08 AM MACHINE LOAD CLERK Plan of Treatment Health Maintenance Due Date [...] Read Routine (OP Routine) 06/23/2024 2:34 PM MACHINE LOAD CLERK Other abnormal and inconclusive findings on diagnostic imaging of breast DIAGNOSTIC MAMMOGRAM BILATERAL W SHAUN Schedule Routine, Read Routine (OP Routine) 11/25/2023 12:01 PM CDT Other abnormal and inconclusive findings on diagnostic imaging of breast DEXA AXIAL SKELETON BONE DENSITY 1 OR MORE SITES Schedule Routine, Read Routine (OP Routine) 02/01/2023 10:28 AM CDT intermediate accountant (current) use of aromatase inhibitors from Last 3 Months or Most Recently Relevant to Health Maintenance Results * Diagnostic Mammogram Right W Shaun (06/23/2024 2:34 PM MACHINE LOAD CLERK) Anatomical Region Laterality Modality Breast Right Mammography 06/23/2024 2:51 PM MACHINE LOAD CLERK Impressions 06/23/2024 2:51 PM MACHINE LOAD CLERK The low-density subcentimeter masses in the right [...] Tracie Aguila M.D. Narrative 06/23/2024 2:51 PM MACHINE LOAD CLERK EXAMINATION: DIAGNOSTIC MAMMOGRAM RIGHT W SHAUN ORDERING [...] year old F with given history of: halfway use of AI's Screening postmenopausal Double Needle Operator/Model: Tradoria Discovery SL (S/N [id number]) CLINICAL INFORMATION: Current height: 62 inches Maximum [...] Mu Clemente M.D. MF: ABI Report ID: [id number] Reading Location: [place] [address] Procedure Note Mu Clemente MD - 02/01/2023 EXAM DESCRIPTION: DEXA AXIAL SKELETON BONE DENSITY 1 OR MORE SITES REASON FOR STUDY: 77 y/o year old F with given history of: longtermuse of AI's Screening postmenopausal Double Needle Operator/Model: Tradoria Discovery SL (S/N [id number]) CLINICAL INFORMATION: Current height: 62 inches Maximum [...] Mu Clemente M.D. MF: ABI Report ID: [id number] Reading Location: [place] [address] Roseanne Mccollum NP IMG DXA PROCEDURES Final R esult from Last 3 Months or Most Recently Relevant to Health Maintenance Insurance [employer] MEDICARE HMO [employer] MEDICARE PPO [facility] MEDICARE HMO Care Teams Flooring Installer Relationship Specialty Start Date End Date Ivan Valdez MD PCP - General 04/10/21
--- OUTSIDE RECORDS SUMMARY | 2024-09-06 11:06 | XMS_ITS ---
Author Organization 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 Assessment [...] 1 tab at bedtime. This encounter's total mwbo-rg-kcaa time was greater than 30 minutes. I [...] patient was located at home in the [facility]. The patient visit started at 16:38 and [...]
--- OUTSIDE RECORDS SUMMARY | 2024-09-06 11:06 | XMS_ITS | Clinical Summary ---
Author Organization [facility] Address [address] [facility] [place] [address] Phone Care Team Providers Care Jail Manager Name Role Phone Unavailable Primary Care Provider [...] on file Legal Sex Female 7:50 PM GROUNDS AND NURSERY SPECIALIST Gender Identity Not on file Sexual Orientation Not on file Occupation Industry Job Start Date Job End Date Not on file Not on file Not on file Not on file Last Filed Vital Signs Vital Sign Reading Time Taken Comments Blood Pressure 140/93 02/24/2013 10:35 PM GROUNDS AND NURSERY SPECIALIST Pulse 90 02/24/2013 7:51 PM GROUNDS AND NURSERY SPECIALIST Temperature 36.8 C (98.3 F) 02/24/2013 7:51 PM GROUNDS AND NURSERY SPECIALIST Respiratory Rate 20 02/24/2013 10:35 PM GROUNDS AND NURSERY SPECIALIST Oxygen Saturation 97% 02/24/2013 10:35 PM GROUNDS AND NURSERY SPECIALIST Inhaled Oxygen Concentration - - Weight 84.4 kg (186 lb) 02/24/2013 7:51 PM GROUNDS AND NURSERY SPECIALIST Height 160 cm (5' 3 ) 02/24/2013 7:51 PM GROUNDS AND NURSERY SPECIALIST Body Mass Index 32.95 02/24/2013 7:51 PM GROUNDS AND NURSERY SPECIALIST Plan of Treatment Health Maintenance Due Date [...] BLOOD 1 CARD Stat 02/24/2013 10:17 PM GROUNDS AND NURSERY SPECIALIST from Last 3 Months or Most Recently Relevant to Health Maintenance Results * POC OCCULT BLOOD 1 CARD (02/24/2013 10:17 PM GROUNDS AND NURSERY SPECIALIST) OCCULT BLOOD #1 Negative Negative Comment:control line present Stool specimen (specimen) 02/24/2013 10:17 PM GROUNDS AND NURSERY SPECIALIST Gabriele Head MD POINT OF CARE TESTING Final Re sult from Last 3 Months or Most Recently Relevant to Health Maintenance Insurance [employer]
--- OUTSIDE RECORDS SUMMARY | 2024-09-06 11:06 | XMS_ITS | Clinical Summary ---
Author Organization [facility] Address [address] [place] [address] Phone Care Team Providers Care Film Replacement Orderer Name Role Phone DonArtem vaughan Annie CARDOZO Primary Care Provider +1- [phone] Allergies Active Allergy Reactions Criticality Noted Date [...] Description 07/25/2024 9:30 AM CDT Physical [facility] [address] [place] [address] Orestes Mcclain MD Middleton, Trisha M, PT Parkinson's disease, unspecified whether dyskinesia present, unspecified whether manifestations fluctuate (HCC) (Primary Dx) Discharge Disposition: Discharged to home or Selfcare 07/25/2024 Travel 07/21/2024 10:00 AM CDT Physical Therapy [facility] [address] [place] [address] Orestes Mcclain MD Stewart, James R, TANK CREWMEMBER Parkinson's disease, unspecified whether dyskinesia present, unspecified whether manifestations fluctuate (HCC) (Primary Dx) Discharge Disposition: Discharged to home or Selfcare 07/21/2024 Travel 07/18/2024 Telephone [facility] [address] [place] [address] Kimberly Ponce, PT Appointment 07/17/2024 Travel 07/14/2024 9:30 AM CDT Physical Therapy [facility] [address] [place] [address] Orestes Mcclain MD Middleton, Trisha M, PT Parkinson's disease, unspecified whether dyskinesia present, unspecified whether manifestations fluctuate (HCC) (Primary Dx) Discharge Disposition: Discharged to home or Selfcare 07/14/2024 Travel 07/11/2024 9:15 AM CDT Physical Therapy [facility] [address] [place] [address] Orestes Mcclain MD Stewart, James R, TANK CREWMEMBER Parkinson's disease, unspecified whether dyskinesia present, unspecified whether manifestations fluctuate (HCC) (Primary Dx) Discharge Disposition: Discharged to home or Selfcare 07/11/2024 Travel 07/07/2024 1:00 PM CDT Physical Therapy [facility] [address] [place] [address] Orestes Mcclain MD Middleton, Trisha M, PT Parkinson's disease, unspecified whether dyskinesia present, unspecified whether manifestations fluctuate (HCC) (Primary Dx) Discharge Disposition: Discharged to home or Selfcare 07/07/2024 Travel 07/04/2024 2:30 PM CDT Physical [facility] [address] [place] [address] Orestes Mcclain MD Middleton, Trisha M, PT Parkinson's disease, unspecified whether dyskinesia present, unspecified whether manifestations fluctuate (HCC) (Primary Dx) Discharge Disposition: Discharged to home or Selfcare 07/04/2024 Travel 06/23/2024 Plan of Care Documentation [facility] [address] [place] [address] 06/22/2024 10:00 AM RAG COLLECTOR Physical Therapy [facility] [address] [place] [address] Orestes Mcclain MD Middleton, Trisha M, PT [...] Comments Blood Pressure 156/73 06/20/2015 12:30 PM RAG COLLECTOR Pulse 68 06/20/2015 2:26 PM RAG COLLECTOR Temperature 36.2 C (97.1 F) 06/20/2015 12:30 PM RAG COLLECTOR Respiratory Rate 18 06/20/2015 2:26 PM RAG COLLECTOR Oxygen Saturation 95% 06/20/2015 2:26 PM RAG COLLECTOR Inhaled Oxygen Concentration - - Weight 84.4 kg (186 lb) 06/20/2015 12:30 PM RAG COLLECTOR Height 160 cm (5' 3 ) 06/20/2015 12:30 PM RAG COLLECTOR Body Mass Index 32.95 06/20/2015 12:30 PM RAG COLLECTOR Plan of Treatment Health Maintenance Due Date [...] topic Insurance MEDICARE C HUMANA Care Teams Film Replacement Orderer Relationship Specialty Start Date End Date Artem Velazquez DO [address] [place] [address] PCP - General Family Medicine 01/26/18
--- OUTSIDE RECORDS SUMMARY | 2024-09-06 11:06 | XMS_ITS | Referral Summary ---
Author Organization [facility] Address [address] [place] [address] Care Team Providers Care Market Specialist Name Role Phone Ivan Valdez MD Primary Care Provider [phone] [phone] Encounters Date Type Department Care Team Description 06/26/2024 Orders Only [facility] [address] [place] [address] Roseanne Mccollum NP History of breast cancer (Primary Dx); Abnormal mammogram 06/23/2024 Orders Only [facility] [address] [place] [address] Roseanne Mccollum NP History of breast cancer (Primary Dx) 06/23/2024 2:25 PM ORACLE CONSULTANT - 06/23/2024 11:59 PM ORACLE CONSULTANT Hospital Encounter [facility] [address] [place] [address] Other abnormal and inconclusive findings on diagnostic imaging of breast Discharge Disposition: Discharge to home or self care 06/23/2024 10:30 AM ORACLE CONSULTANT Office Visit [facility] [address] [place] [address] Roseanne Mccollum NP Malignant neoplasm of female [...] 11/17/2017 Assessment & Plan (03/22/2024 9:00 PM ORACLE CONSULTANT): 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 [...] 1 tab at bedtime. This encounter's total bobw-qn-psrk time was greater than 30 minutes. I [...] located at home in the state of [place]. The patient visit started at 16:38 and [...] on file Legal Sex Female 7:17 PM ORACLE CONSULTANT Gender Identity Female 05/01/2022 2:39 PM ORACLE CONSULTANT Sexual Orientation Straight 01/27/2020 8: 29 PM CDT Last Filed Vital Signs Vital Sign Reading Time Taken Comments Blood Pressure 127/85 06/23/2024 10:08 AM ORACLE CONSULTANT Pulse 71 06/23/2024 10:08 AM ORACLE CONSULTANT Temperature 36.3 C (97.4 F) 06/23/2024 10:08 AM ORACLE CONSULTANT Respiratory Rate 18 06/23/2024 10:0 8 AM ORACLE CONSULTANT Oxygen Saturation 97% 06/23/2024 10: 08 AM ORACLE CONSULTANT Inhaled Oxygen Concentration - - Weight 89.3 kg (196 lb 12.8 oz) 025 10:08 AM ORACLE CONSULTANT Height 158.8 cm (5' 2.5 ) 06/23/2024 2:31 PM ORACLE CONSULTANT Body Mass Index 35.54 06/23/2024 10:08 AM ORACLE CONSULTANT Plan of Treatment Not on file Procedures Procedure Name Priority Date/Time Associated Diagnosis Comments DIAGNOSTIC MAMMOGRAM RIGHT W SHAUN Schedule Routine, Read Routine (OP Routine) 06/23/2024 2:34 PM ORACLE CONSULTANT Other abnormal and inconclusive findings on diagnostic imaging of breast DIAGNOSTIC MAMMOGRAM BILATERAL W SHAUN Schedule Routine, Read Routine (OP Routine) 11/25/2023 12:01 PM CDT Other abnormal and inconclusive findings on diagnostic imaging of breast DEXA AXIAL SKELETON BONE DENSITY 1 OR MORE SITES Schedule Routine, Read Routine (OP Routine) 02/01/2023 10:28 AM CDT long-term (current) use of aromatase inhibitors from Last 3 Months or Most Recently Relevant to Health Maintenance Results * Diagnostic Mammogram Right W Shaun (06/23/2024 2:34 PM ORACLE CONSULTANT) Anatomical Region Laterality Modality Breast Right Mammography 06/23/2024 2:51 PM ORACLE CONSULTANT Impressions 06/23/2024 2:51 PM ORACLE CONSULTANT The low-density subcentimeter masses in the right [...] Tracie Aguila M.D. Narrative 06/23/2024 2:51 PM ORACLE CONSULTANT EXAMINATION: DIAGNOSTIC MAMMOGRAM RIGHT W SHAUN ORDERING [...] year old F with given history of: senior living use of AI's Screening postmenopausal Appraiser Auditor/Model: Red LaGoon (S/N [id number]) CLINICAL INFORMATION: Current height: 62 inches Maximum [...] Mu Clemente M.D. MF: ABI Report ID: [id number] Reading Location: [place] [address] Procedure Note Mu Clemente MD - 02/01/2023 EXAM DESCRIPTION: DEXA AXIAL SKELETON BONE DENSITY 1 OR MORE SITES REASON FOR STUDY: 77 y/o year old F with given history of: longtermuse of AI's Screening postmenopausal Appraiser Auditor/Model: Red LaGoon (S/N [id number]) CLINICAL INFORMATION: Current height: 62 inches Maximum [...] Mu Clemente M.D. MF: ABI Report ID: [id number] Reading Location: [id number] Roseanne Mccollum NP IMG DXA PROCEDURES Final R esult from Last 3 Months or Most Recently Relevant to Health Maintenance Insurance [employer] MEDICARE HMO HU[employer] MEDICARE HMO Care Teams Market Specialist Relationship Specialty Start Date End Date Ivan Valdez MD PCP - General 04/10/21
[2024-09-06 18:36] LABS: Basophils Percent Auto 0.8 % (0.2-1.2); Eosinophils Absolute Auto 0.1 K/mm3 (0-0.3); Eosinophils Percent Auto 1.6 % (0-4.4); Hematocrit 48.4 % (37.0-47.0); Hemoglobin 15.6 g/dL (12.0-15.0); Immature Granulocyte Absolute 0.01 K/mm3 (0.00-0.031); Immature Granulocyte Percent A 0.3 % (0-0.5); Lymphocytes Absolute Auto 1.41 K/mm3 (0.9-3.2); Lymphocytes Percent Auto 36.5 % (18.3-44.2); Mean Corpuscular HGB Conc 32.2 g/dl (32-36); Mean Corpuscular Hemoglobin 31.6 pg (26-34); Mean Corpuscular Volume 98.2 fl (80-100); Mean Platelet Volume 11.8 fl (7.4-10.4); Monocytes Absolute Auto 0.4 K/mm3 (0.1-0.6); Monocytes Percent Auto 10.6 % (2.6-8.5); Neutrophils Absolute Auto 1.9 K/mm3 (1.3-6.7); Neutrophils Percent Auto 50.2 % (45.5-73.1); Platelet Count Result 239 k/mm3 (150-375); Red Blood Count 4.93 M/mm3 (4.2-5.4); Red Cell Distribution Width 12.6 % (11.5-14.5); White Blood Count 3.9 K/mm3 (4.5-10.0)
== END 2024-09-06 10:31 | disposition home or self-care (01) ==
PROVIDERS: PCP Nurse Practitioner Adult Health; Visit Provider Nurse Practitioner Adult Health
DX: R79.89 Other specified abnormal findings of blood chemistry (principal)
CPT/HCPCS: 36415; 85025

== ENCOUNTER 2024-12-06 14:14 | Outpatient (CLI) | payer MEDICARE, SELFPAY ==
--- NOTE | ~2024-12-06 | XR_ITS ---
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 Procedure: 3 views left hand Comparison: 02/23/2023 Findings: There is severe osteoarthritis of the first carpometacarpal joint and to a lesser degree the triscaphe joint. There are loose bodies adjacent to the CMC joint. There is mild polyarticular osteoarthritis of the remainder of the interphalangeal joints. No acute fracture or traumatic malalignment. Impression: 1: Mild-severe polyarticular osteoarthritis, most advanced at the first carpometacarpal joint. Reviewed, dictated and finalized at location A. Impression: 1: Mild-severe polyarticular osteoarthritis, most advanced at the first carpome tacarpal joint.
--- OUTSIDE RECORDS SUMMARY | 2024-12-06 14:45 | XMS_ITS ---
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 Assessment [...] 1 tab at bedtime. This encounter's total xnfb-fi-qtmb time was greater than 30 minutes. I [...] patient was located at home in the [facility]. The patient visit started at 16:38 and [...]
--- OUTSIDE RECORDS SUMMARY | 2024-12-06 14:45 | XMS_ITS | Clinical Summary ---
Author Organization [facility] Address [address] [place] [address] Phone Care Team Providers Care Faculty Research Physician Name Role Phone AlexanderArtem lee Annie CARDOZO Primary Care Provider +1- [phone] Allergies Active Allergy Reactions Criticality Noted Date [...] for Pain. 20 Tab 0 06/20/2015 Active Social History Tobacco Use Types Packs/Day [...] Comments Blood Pressure 156/73 06/20/2015 12:30 PM AUTO CLUTCH SPECIALIST Pulse 68 06/20/2015 2:26 PM AUTO CLUTCH SPECIALIST Temperature 36.2 C (97.1 F) 06/20/2015 12:30 PM AUTO CLUTCH SPECIALIST Respiratory Rate 18 06/20/2015 2:26 PM AUTO CLUTCH SPECIALIST Oxygen Saturation 95% 06/20/2015 2:26 PM AUTO CLUTCH SPECIALIST Inhaled Oxygen Concentration - - Weight 84.4 kg (186 lb) 06/20/2015 12:30 PM AUTO CLUTCH SPECIALIST Height 160 cm (5' 3) 06/20/2015 12:30 PM AUTO CLUTCH SPECIALIST Body Mass Index 32.95 06/20/2015 12:30 PM AUTO CLUTCH SPECIALIST Plan of Treatment Health Maintenance Due Date Last Done Comments Hepatitis C Virus (HCV) Screening 1945 TdaP Immunization 1945 Pneumococcal Immunization (50+ years) (2 of 2 - PCV20 or PCV21) 05/20/2017 05/20/2016 Zoster Immunization (2 of 2) 04/05/2020 02/09/2020 Respiratory Syncytial Virus (RSV) Immunization (Adult) (1 - 1-dose 75+ series) 2022 SARS-COV-2 Immunization ( - season) 2023 02/27/2021, 05/31/2020, 05/02/2020 Influenza Immunization (#1) 12/18/202401/18, 12/29/2018, 01/18/2018, Additional history exists DEXA Bone Density 02/01/2025 02/01/2023, 05/14/2020 Colorectal Cancer Screening Discontinued Immunochemical Fecal Occult Blood Discontinued 02/24/2013 Pneumococcal Immunization Combined Discontinued 05/20/2016 Mammogram Discontinued 11/25/2023, 09/18, 06/09/2022, Additional history exists Cologuard Discontinued Colonoscopy Discontinued Hepatitis B Immunization Aged Out No longer eligible based on patient's age to complete this topic Human Papillomavirus (HPV) Immunization Aged Out No longer eligible based on patient's age to complete this topic Meningococcal Immunization (ACWY) Aged Out No longer eligible based on patient's age to complete this topic Rotavirus Immunization Aged Out No lo nger eligible based on patient's age to complete this topic Insurance MEDICARE C HUMANA Care Teams Faculty Research Physician Relationship Specialty Start Date End Date Artem Velazquez DO [address] [place] [address] PCP - General Family Medicine 01/26/18
--- OUTSIDE RECORDS SUMMARY | 2024-12-06 14:45 | XMS_ITS | Clinical Summary ---
Author Organization [facility] Address [address] [place] [address] Care Team Providers Care Legal Financial Specialist Name Role Phone Ivan Valdez MD Primary Care Provider +1 -[phone] Allergies Active Allergy Reactions Criticality Noted Date [...] mouth nightly 90 tablet 3 4 Active letrozole (FEMARA) 2.5 mg tabletIndications :Malignant [...] 180 tablet 11 5 06/28/19 26 Active carbidopa-levodop a CR (SINEMET CR) 50-200 mg per CR tabletIndications :Idiopathic Parkinsonism Take 1 tablet by mouth nightly 90 tablet 3 5 10/07/19 26 Active Active Problems Problem Noted Date Diagnosed Date Parkinson disease 11/17/2017 Assessment & Plan (03/22/2024 9:00 PM BRIDGE ENGINEER): 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 Assessment [...] 1 tab at bedtime. This encounter's total cwoh-ss-qoua time was greater than 30 minutes. I [...] located at home in the state of [place]. The patient visit started at 16:38 and [...] with parkinsonism for 14 years (onset in 2004 at age 59) that began as intermittent [...] Encounters Date Type Department Care Team Description 11/06/2024 2:21 PM CDT - 11/06/2024 11:59 PM CDT Hospital Encounter [facility] [address] [place] [address] History of breast cancer; Abnormal mammogram Discharge Disposition: Discharge to home or self care 10/26/2024 Telephone [facility] [address] [facility] Medical Office Building [address] [place] [address] Isabel Curtis CMA from Last 3 Months Immunizations Immunization Administration [...] on file Legal Sex Female 7:17 PM BRIDGE ENGINEER Gender Identity Female 05/01/2022 2:39 PM BRIDGE ENGINEER Sexual Orientation Straight 01/27/2020 8: 29 PM CDT Obstetrics History Para Term AB IAB SAB Ectopic Multiple Livin g Live Births 2 2 2 Date Outcome GA Total Labor Labor/2nd/3rd Weight Sex Type Anes PTL Janay A1 A5 Name Clin Term Term Last Filed Vital Signs Vital Sign Reading Time Taken Comments Blood Pressure 127/85 06/23/2024 10:08 AM BRIDGE ENGINEER Pulse 71 06/23/2024 10:08 AM BRIDGE ENGINEER Temperature 36.3 C (97.4 F) 06/23/2024 10:08 AM BRIDGE ENGINEER Respiratory Rate 18 06/23/2024 10:0 8 AM BRIDGE ENGINEER Oxygen Saturation 97% 06/23/2024 10: 08 AM BRIDGE ENGINEER Inhaled Oxygen Concentration - - Weight 89.3 kg (196 lb 12.8 oz) 025 10:08 AM BRIDGE ENGINEER Height 158.8 cm (5' 2.5) 06/23/2024 2:31 PM BRIDGE ENGINEER Body Mass Index 35.54 06/23/2024 10:08 AM BRIDGE ENGINEER Plan of Treatment Health Maintenance Due Date Last Done Comments Fall Risk Assessment 1945 Hepatitis C Screening 1945 DTaP/Tdap/Td Vaccine (1 - Tdap) 1958 Hepatitis B Screening 1965 Well Visit 65+ 2012 Pneumococcal vaccine 65+ (2 of 2 - PPSV23, PCV20, or PCV21) 07/15/2016 05/20/2016 Zoster Vaccine (2 of 2) 04/05/2020 02/09/2020 Covid-19 Vaccine (3 - Modern a risk series) 06/27/2020 05/30/2020, 05/02/2020 Depression Screening 03/17/2024 03/17/2023 Influenza Vaccine (#1) 2024 , 12/29/2018, 01/19/2018, Additional history exists Osteoporosis Screening-Bone Density Scan 02/01/2025 02/01/2023, 05/14/2020 Breast Cancer Screening-Mammogram Discontinued 11/06/2024, 11/25/2023, 10/11/2023, Additional history exists Procedures Procedure Name Priority Date/Time Associated Diagnosis Comments DIAGNOSTIC MAMMOGRAM BILATERAL W SHAUN Schedule Routine, Read Routine (OP Routine) 11/06/2024 2:32 PM CDT History of breast cancer Abnormal mammogram DEXA AXIAL SKELETON BONE DENSITY 1 OR MORE SITES Schedule Routine, Read Routine (OP Routine) 02/01/2023 10:28 AM CDT [facility] (current) use of aromatase inhibitors from Last 3 Months or Most Recently Relevant to Health Maintenance Results * Diagnostic Mammogram Bilateral W Shaun (11/06/2024 2:32 PM CDT) Anatomical Region Laterality Modality Breast Bilateral Mammography 11/06/2024 2:46 PM CDT Impressions 11/06/2024 2:46 PM CDT No evidence of malignancy. Follow-up in 1 year with screening mammography is recommended. BI-RADS: 1 - Negative. The patient has been or will be contacted. The patient will be entered into a reminder system with a target due date of 1 year for her next mammogram. Electronically signed by: Tracie Aguila M.D. Narrative 11/06/2024 2:46 PM CDT EXAMINATION: DIAGNOSTIC MAMMOGRAM BILATERAL W SHAUN ORDERING HEALTHCARE PROVIDER: ROSEANNE MCCOLLUM HISTORY: Follow-up probably benign lesions in the right breast. COMPARISON: 06/23/2024, 2023, , 04/08/2023, 04/10/2021 TECHNIQUE: CC and MLO routine views of the Bilateral breasts were obtained with digital technique using breast tomosynthesis with C view. Computer aided detection was utilized. FINDINGS: The breast are almost entirely fatty. There are scattered calcifications in both breasts. The previously seen subcentimeter low-density mass in the lower outer right breast anteriorly and the mass seen in the lower inner right breast, middle depth are less prominent on the current examination. No sonographic lesions were seen on prior examination. These will continue to be classified as probably benign. There are no other suspicious masses, calcifications, or architectural distortion in either breast. There is no significant change.. Roseanne Mccollum PROCESS MANAGER IMG MAMMO PROCEDURES Final Result * Dexa Axial Skeleton Bone Density 1 or 2 Site (02/01/2023 10:28 AM CDT) Anatomical Region Laterality Modality Body N/A Other 02/01/2023 9:19 PM CDT Narrative 02/01/2023 9:23 PM CDT EXAM DESCRIPTION: DEXA AXIAL SKELETON BONE DENSITY 1 OR MORE SITES REASON FOR STUDY: 77 y/o year old F with given history of: correction use of AI's Screening postmenopausal Harness Tier/Model: Open Dynamics SL (S/N [id number]) CLINICAL INFORMATION: Current height: 62 inches Maximum [...] Mu Clemente M.D. MF: ABI Report ID: [id number] Reading Location: [place] [address] Procedure Note Mu Clemente MD - 02/01/2023 EXAM DESCRIPTION: DEXA AXIAL SKELETON BONE DENSITY 1 OR MORE SITES REASON FOR STUDY: 77 y/o year old F with given history of: longtermuse of AI's Screening postmenopausal Harness Tier/Model: Audigence (S/N [id number]) CLINICAL INFORMATION: Current height: 62 inches Maximum [...] Mu Clemente M.D. MF: ABI Report ID: [id number] Reading Location: [place] [address] Roseanne Mccollum NP IM DXA PROCEDURES Final R esult from Last 3 Months or Most Recently Relevant to Health Maintenance Insurance [facility] MEDICARE HMO [address] [place] [id number] [facility] MEDICARE PPO [employer] MEDICARE HMO Care Teams Legal Financial Specialist Relationship Specialty Start Date End Date Ivan Valdez MD PCP - General 04/10/21
--- OUTSIDE RECORDS SUMMARY | 2024-12-06 14:45 | XMS_ITS | Encounter Summary ---
Author Organization [facility] Address [address] [place] [address] Phone Care Team Providers Care Director Security Risk Management Name Role Phone Artem Velazquez DO Primary Care Provider [phone]- [phone] Reason for Referral * PT/OT/ST (Routine) - Closed Specialty Diagnoses / Procedures Referred By Contac t Referred To Contact Physical Therapy Diagnoses Parkinson's disease, unspecified whether dyskinesia present, unspecified whether manifestations fluctuate (HCC) Orestes Mcclain MD [address] [facility] [place] [address] Phone: tel: fax: [facility] [address] [address] Phone: tel: fax: Referral ID Status Reason Start Date Expiration Date Visits Re quested Visits Authorized [id number] Closed 05/15/2024 50 11 Scheduling Instructions OL PSYCHOLOGIST Encounter Details Date Type Department Care Team (Latest Contact Info) Description 05/15/2024 Transcribe Orders [facility] [address] [place] [address] Orestes Mcclain MD [address] [facility] [address] Parkinson's disease, unspecified whether dyskinesia [...] Primary documented in this encounter Care Teams Director Security Risk Management Relationship Specialty Start Date End Date Artem Velazquez DO [address] [place] [address] PCP - General Family Medicine 01/26/18 documented as of this encounter
== END 2024-12-06 14:15 | disposition home or self-care (01) ==
PROVIDERS: PCP Nurse Practitioner Adult Health; Visit Provider Plastic Surgery
DX: M18.12 Unilateral primary osteoarthritis of first carpometacarpal joint, left hand (principal)
CPT/HCPCS: 73130

== ENCOUNTER 2025-01-12 16:43 | Inpatient (IN) | payer MEDICARE, SELFPAY ==
[2025-01-12] VITALS (28 sets, daily range): BP systolic 141–177; BP diastolic 79–94; PULSE 73–89; RESP 16–18; TEMP 36.6; O2SAT 91–100
--- NOTE | ~2025-01-12 | CT_ITS ---
EXAMINATION: CT BRAIN W/O DATE: 01/12/2025 20:35 INDICATION: Headache. Hypertension. Nausea and vomiting. TECHNIQUE: Computed tomography (CT) of the head was performed without intravenous contrast. The dose-length product was 605.33 mGy-cm. COMPARISON: CT dated 08/20/2019 FINDINGS: Normal brain parenchymal volume for age. Normal wick-white differentiation. No acute intracranial hemorrhage, infarction, mass or mass effect. There are scattered mild periventricular and subcortical white matter changes, most likely related to small vessel ischemic disease (microangiopathy). No ventriculomegaly or midline shift. Midline sagittal images demonstrate a normal corpus callosum, craniovertebral junction and sella turcica. Basilar cisterns are patent. Paranasal sinuses and mastoids are pneumatized. No depressed skull fractures. IMPRESSION: 1. No acute intracranial abnormality. Reviewed, dictated and finalized at location O.
--- NOTE | ~2025-01-12 | CT_ITS ---
EXAMINATION: CT abdomen pelvis w con DATE: 01/12/2025 20:35 INDICATION: Abdomen pain. Nausea and vomiting. TECHNIQUE: Computed tomography (CT) of the abdomen and pelvis was performed with intravenous contrast. The dose-length product was 1337.25 mGy-cm. COMPARISON: CT dated 11/17/2022. FINDINGS: Heart size normal. There is pleural-based 2.8 x 1.8 cm mass which was not definitely seen on prior examinations, possibly due to differences of technique. There is suggestion of invasion of the left chest wall. Nonobstructive bowel gas pattern. Small fat-containing umbilical hernia. No abnormal pelvic masses or fluid collections. Status post hysterectomy. Severe lower thoracic and lumbar spondylosis. Heart size normal. The liver, spleen, pancreas, adrenal glands and kidneys are unremarkable. IMPRESSION: 1. No acute abdominal abnormality. 2: New pleural-based 2.8 cm mass left lower lobe, suspicious for malignancy. Correlation with pet/CT or percutaneous biopsy recommended. Reviewed, dictated and finalized at location O. IMPRESSION: 1. No acute abdominal abnormality. 2: New pleural-based 2.8 cm mass left lower lobe, suspicious for malignancy. Co rrelation with pet/CT or percutaneous biopsy recommended.
--- NOTE | ~2025-01-12 | CT_ITS ---
EXAMINATION: CT diagnostic chest wo con DATE: 01/12/2025 21:20 INDICATION: Left lung mass TECHNIQUE: Computed tomography (CT) of the chest was performed without intravenous contrast. The dose-length product was 365.56 mGy-cm. COMPARISON: CT abdomen dated 01/12/2025 FINDINGS: No thoracic lymphadenopathy. There is a hiatal hernia with surgical changes at the gastroesophageal junction. Heart size normal. No significant pleural or pericardial effusion. There is bandlike consolidation left lower lobe extending to the pleural surface with focal pleural thickening at this level the inner surface of the soft tissue contains fat, likely extrapleural. The soft tissue appears less prominent than on prior examination, possibly representing focal herniation of intercostal muscles. There is left lower lobe atelectasis/scarring. No endobronchial lesions. No pneumothorax. Calcified granuloma right upper lobe. Upper abdomen is unremarkable. Mild thoracic spondylosis with accentuated kyphosis. IMPRESSION: 1. Soft tissue density previously seen along the left lower thoracic pleural surface is now significantly less prominent, most compatible with intermittent intercostal muscle herniation. The marked variability in soft tissue prominence over a short interval suggests dynamic intercostal muscle herniation, condition that may occur through congenital, traumatic or postsurgical defects in the thoracic wall. Correlate for prior history of surgery at this location. Adjacent atelectasis/scarring is present. Finding is not typical for neoplasm and are most likely benign and mechanical in nature. Consider follow-up CT chest in 3 months. Reviewed, dictated and finalized at location O. IMPRESSION: 1. Soft tissue density previously seen along the left lower thoracic pleural gallo rface is now significantly less prominent, most compatible with intermittent in tercostal muscle herniation. The marked variability in soft tissue prominence o woody a short interval suggests dynamic intercostal muscle herniation, condition that may occur through congenital, traumatic or postsurgical defects in the tho racic wall. Correlate for prior history of surgery at this location. Adjacent a telectasis/scarring is present. Finding is not typical for neoplasm and are mos t likely benign and mechanical in nature. Consider follow-up CT chest in 3 edgard hs.
--- OUTSIDE RECORDS SUMMARY | 2025-01-12 16:45 | XMS_ITS ---
Author Organization [facility] Address [address] [place] [address] Care Team Providers Care Drug Regulatory Affairs Specialist Name Role Phone Ivan Valdez MD Primary Care Provider [phone] [phone] Active Problems Problem Noted Date Diagnosed Date Parkinson disease 11/17/2017 Assessment & Plan (12/22/2024 12:00 PM CDT): Stage 3 parkinsonism manifest since age 59 as asymmetric rest tremor, bradykinesia and rigidity with postural instabilty with good response to levodopa and no current side effects. Overall she is doing very well since the last visit. She had couple of falls from turning too quick or while rushing. But she did PT in August for 4 weeks and found it to be helpful. She reports some swaying to the right side when she walked. She used a cane as needed. She could benefit from more PT will send rx. She is doing well other palafox with the current dose of C/L IR and CR , we will not make any changes to her meds today. She is taking Ambien at bedtime for sleep which she states has been very helpful and she feels rested in the morning. 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 She states it has been the same. She felt her mood was great. Encouraged fall precautions. Plan: Same C/L IR and CR Start PT, will send rx 3. Routine exercises 4. NPT next visit 5. Return as scheduled for follow up with Dr Mcclain or sooner if needed 6. 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 Assessment [...] 1 tab at bedtime. This encounter's total byzv-hq-nuwk time was greater than 30 minutes. I [...] located at home in the state of [place]. The patient visit started at 16:38 and [...] Reason Plan Provider IV Maintenance Therapy Plan 9 02/24/2023 No medications scheduled. Automatic discontinuation of dormant plans Cherelle Lemus MD
--- OUTSIDE RECORDS SUMMARY | 2025-01-12 16:45 | XMS_ITS | Clinical Summary ---
Author Organization [facility] Address [address] [place] [address] Phone Care Team Providers Care Plaster Maker Name Role Phone AlexanderArtem lee Annie CARDOZO Primary Care Provider +1- [phone] Allergies Active Allergy Reactions Criticality Noted Date [...] Comments Blood Pressure 156/73 06/20/2015 12:30 PM ASSESSMENT CLINICIAN Pulse 68 06/20/2015 2:26 PM ASSESSMENT CLINICIAN Temperature 36.2 C (97.1 F) 06/20/2015 12:30 PM ASSESSMENT CLINICIAN Respiratory Rate 18 06/20/2015 2:26 PM ASSESSMENT CLINICIAN Oxygen Saturation 95% 06/20/2015 2:26 PM ASSESSMENT CLINICIAN Inhaled Oxygen Concentration - - Weight 84.4 kg (186 lb) 06/20/2015 12:30 PM ASSESSMENT CLINICIAN Height 160 cm (5' 3) 06/20/2015 12:30 PM ASSESSMENT CLINICIAN Body Mass Index 32.95 06/20/2015 12:30 PM ASSESSMENT CLINICIAN Plan of Treatment Health Maintenance Due Date Last Done Comments Hepatitis C Virus (HCV) Screening 1945 TdaP Immunization 1945 Pneumococcal Immunization (50+ years) (2 of 2 - PCV20 or PCV21) 05/20/2017 05/20/2016 Zoster Immunization (2 of 2) 04/05/2020 02/09/2020 Respiratory Syncytial Virus (RSV) Immunization (Adult) (1 - 1-dose 75+ series) 2022 Influenza Immunization (#1) 12/18/202401/18, 12/29/2018, 01/18/2018, Additional history exists SARS-COV-2 Immunization ( season) 2024 02/27/2021, 05/31/2020, 05/02/2020 DEXA Bone Density 02/01/2025 02/01/2023, 05/14/2020 Colorectal [...] topic Insurance MEDICARE C [employer] Care Teams Plaster Maker Relationship Specialty Start Date End Date Artem Velazquez DO [address] [place] [address] PCP - General Family Medicine 01/26/18
--- OUTSIDE RECORDS SUMMARY | 2025-01-12 16:45 | XMS_ITS | Encounter Summary ---
Author Organization [facility] Address [address] [place] [address] Phone Care Team Providers Care Chargeback Analyst Name Role Phone Artem Velazquez DO Primary Care Provider +1- [phone] Reason for Referral * PT/OT/ST (Routine) - Closed Specialty Diagnoses / Procedures Referred By Contac t Referred To Contact Physical Therapy Diagnoses Parkinson's disease, unspecified whether dyskinesia present, unspecified whether manifestations fluctuate Orestse Mcclain MD [address] [facility] [place] [address] Phone: tel: fax: [facility] [address] [address] Phone: tel: fax: Referral ID Status Reason Start Date Expiration Date Visits Re quested Visits Authorized [id number] Closed 05/15/2024 50 11 Scheduling Instructions HERER Encounter Details Date Type Department Care Team (Latest Contact Info) Description 05/15/2024 Transcribe Orders [facility] [address] [place] [address] Orestes Mcclain MD [address] [facility] [place] [address] Parkinson's disease, unspecified whether dyskinesia [...] Whether Dyskinesia Present, Unspecified Whether Manifestations Fluctuate Expected: 05/15/2024, Expires: 05/15/2025 documented as of this encounter Visit Diagnoses Diagnosis Parkinson's disease, unspecified whether dyskinesia present, unspecified whether manifestations fluctuate- Primary documented in this encounter Care Teams Chargeback Analyst Relationship Specialty Start Date End Date Artem Velazquez DO [address] [place] [address] PCP - General Family Medicine 01/26/18 documented as of this encounter
--- NOTE | 2025-01-12 18:08 | ED.NAVMDI ---
HPI - Nausea/Vomiting/Diarrhea General Chief complaint: Nausea/Vomiting/Diarrhea <CONNOR Alejo Last Filed: 01/15/25 10:07> Stated complaint: n/v <CONNOR Alejo Last Filed: 01/15/25 10:07> Time Seen by Provider: 01/12/25 18:08 <Marry Santos PA-C - Last Filed: 01/15/25 10:07> Focused HPI: This is a 79 year old female that presents to the ER for nausea and vomiting. Ongoing since last night. She tried taking oral zofran with little relief. Reports some abdominal cramping while vomiting. Denies fever, diarrhea, dysuria. GENERAL: Uncomfortable, well-nourished, and in no acute distress. HEAD: Normocephalic, atraumatic. CHEST: Clear to auscultation. ?No respiratory distress. HEART: Regular rate and rhythm.? NEURO: ?Alert and oriented x3. Patient screened in triage and initial orders placed.? ?Additional care and disposition to be based upon?diagnostic testing and treatment. <Marry Santos PA-C - Last Filed: 01/15/25 10:07> Focused HPI: This is a 79 year old female that presents to the ER for nausea and vomiting. Ongoing since last night. She tried taking oral zofran with little relief. Reports some abdominal cramping while vomiting. Denies fever, diarrhea, dysuria. GENERAL: Uncomfortable, well-nourished, and in no acute distress. HEAD: Normocephalic, atraumatic. CHEST: Clear to auscultation. ?No respiratory distress. HEART: Regular rate and rhythm.? NEURO: ?Alert and oriented x3. Patient screened in triage and initial orders placed.? ?Additional care and disposition to be based upon?diagnostic testing and treatment. <CONNOR Alamo Last Filed: 01/13/25 01:34> Source: patient and family <CONNOR Alamo Last Filed: 01/13/25 01:34> Mode of arrival: ambulatory <CONNOR Alamo Last Filed: 01/13/25 01:34> Limitations: no limitations <Anh Ashraf PA-C - Last Filed: 01/13/25 01:34> History of Present Illness HPI Narrative: Agree with above HPI. States she is unable to keep down any food or drink. Feels very dehydrated. Reports subjective fevers, headache. Family member at bedside reports that patient has had episodes like this in the past, but has never had an official diagnosis. History of Parkinson's disease, lupus, fibromyalgia. <Anh Ashraf PA-C - Last Filed: 01/13/25 01:34> Related Data Home medications: Home Medications ?Medication ?Instructions ?Recorded ?Confirmed ?Last Taken ?Type carbidopa ER 50 mg-levodopa 200 mg 1 tablet PO HS 02/28/19 01/13/25 01/11/25 History tablet,extended release letrozole 2.5 mg tablet 2.5 mg PO DAILY 10/02/19 01/13/25 01/11/25 History calcium 600 mg (as 1 cap PO DAILY 05/28/20 01/13/25 01/11/25 History carbonate)-vitamin D3 12.5 mcg (500 unit) capsule (Calcium with Vit D3) coenzyme [id number] E 100 mg-100 1 cap PO DAILY 05/28/20 01/13/25 01/11/25 History unit capsule multivitamin (Daily Multi-Vitamin 1 tablet PO DAILY 05/28/20 01/13/25 01/11/25 History tablet) vitamin E (dl, acetate) 450 mg 4,000 mg PO DAILY 05/28/20 01/13/25 01/11/25 History (1,000 unit) capsule carbidopa 25 mg-levodopa 100 mg 1.5 tablet PO TID 03/02/24 01/13/25 01/11/25 History tablet biotin 1,000 mcg chewable tablet 1,000 mcg PO BID 01/13/25 01/13/25 01/11/25 History magnesium 200 mg tablet 400 mg PO DAILY 01/13/25 01/13/25 01/11/25 History potassium 99 mg tablet 99 mg PO DAILY 01/13/25 01/13/25 01/11/25 History zinc 15 mg tablet 15 mg PO DAILY 01/13/25 01/13/25 01/11/25 History <Marry Santos PA-C - Last Filed: 01/15/25 10:07> Allergies/Adverse reactions: Allergies Allergy/AdvReac Type Severity Reaction Status Date / Time ciprofloxacin Allergy Unknown Difficulty Verified 01/15/25 08:38 Breathing levofloxacin Allergy Unknown Difficulty Verified 01/15/25 08:38 Breathing <Marry Santos PA-C - Last Filed: 01/15/25 10:07> Review of Systems Review of Systems: All systems reviewed & are unremarkable except as noted in HPI. <Anh Ashraf PA-C - Last Filed: 01/13/25 01:34> All systems reviewed & are unremarkable except as noted in HPI and below <Anh Ashraf PA-C - Last Filed: 01/13/25 01:34> [facility] Past Medical History Medical History: Medical History Obesity GERD with esophagitis Erosive esophagitis Polycythemia, secondary Cancer of left breast Osteoporosis Undifferentiated connective tissue disease Vitamin D deficiency Generalized osteoarthritis of multiple sites History of frequent headaches Hypertriglyceridemia Fibromyalgia Lupus Parkinson disease Seasonal allergies <Marry Santos PA-C - Last Filed: 01/15/25 10:07> Surgical History Surgical History: Surgical History H/O total hysterectomy History of repair of hiatal hernia History of esophagogastroduodenoscopy (EGD) ([place]) H/O mastectomy left <CONNOR Alejo Last Filed: 01/15/25 10:07> Family History Family History: Family History Grandparent Family history of cardiovascular disease Carcinoma of colon Family history of emphysema Family history of thoracic aortic aneurysm Mother Family history of cardiac disorder Father Family history of malignant neoplasm of brain <CONNOR Aeljo Last Filed: 01/15/25 10:07> Social History Social History: Social History Social History: She has been for 35 years. 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 she rarely drinks alcohol and only in small amounts. She is a lifelong nonsmoker. She denies any illicit substance use of any type. Code status: Full code Surrogate decision maker: Carlee () Smoking status: Never smoker Second hand tobacco smoke exposure: No Alcohol intake: never Substance use: never Substance use type: does not use Lack of Transportation: YES Lack of Food: Never True Current Housing: I Have Housing Concerned About Future Housing: No Difficulty Paying Gas/Electric Bills: No Difficulty Paying for Meds: No Currently Unemployed: No Education: High School Diploma/GED Difficulty w/ Childcare or Family Care: No Living arrangements: with family Occupation/Education: retired Gender identity (if verbalized by the patient): Female Sexual Orientation (if Verbalized by the Patient): Straight or Heterosexual Spiritual care concerns: No <Marry Santos PA-C - Last Filed: 01/15/25 10:07> Exam Narrative: GENERAL: Mildly ill/uncomfortable appearing, obese with BMI of 34.0, non-toxic, in no acute distress. HEAD: Normocephalic, atraumatic. RESPIRATORY: Airway patent, respirations nonlabored. Clear to auscultation bilaterally, no rales, rhonchi, wheezing. CARDIOVASCULAR: Regular rate and rhythm without murmurs, rubs, or gallops. ABDOMINAL: Soft, mild diffuse tenderness throughout upper abdomen, nondistended. Normoactive BS. MUSCULOSKELETAL: Moves all extremities. No gross deformities. SKIN: Warm, dry, normal color. NEURO: A&O X3. Speech clear. Cranial nerves II-XII grossly intact. Steady gait. Diffusely tremulous. PSYCHIATRIC: Appropriate mood and affect. Normal interaction. <Anh Ashraf PA-C - Last Filed: 01/13/25 01:34> Course Vital Signs Vital signs: Vital Signs Temperature 97.8 F 01/12/25 16:44 Pulse Rate 76 01/12/25 16:44 Respiratory Rate 18 01/12/25 16:44 Blood Pressure 141/80 H 01/12/25 16:44 Pulse Oximetry 97 01/12/25 16:44 Temperature 97.6 F 01/15/25 08:40 Pulse Rate 52 L 01/15/25 09:58 Respiratory Rate 20 01/15/25 09:58 Blood Pressure 122/63 01/15/25 09:58 Pulse Oximetry 100 01/15/25 09:58 Oxygen Delivery Room Air 01/15/25 09:58 Oxygen Flow Rate 2 01/15/25 09:43 <Marry Santos PA-C - Last Filed: 01/15/25 10:07> Vital Signs Temperature 97.8 F 01/12/25 16:44 Pulse Rate 76 01/12/25 16:44 Respiratory Rate 18 01/12/25 16:44 Blood Pressure 141/80 H 01/12/25 16:44 Pulse Oximetry 97 01/12/25 16:44 Temperature 97.6 F 01/15/25 08:40 Pulse Rate 52 L 01/15/25 09:58 Respiratory Rate 20 01/15/25 09:58 Blood Pressure 122/63 01/15/25 09:58 Pulse Oximetry 100 01/15/25 09:58 Oxygen Delivery Room Air 01/15/25 09:58 Oxygen Flow Rate 2 01/15/25 09:43 <Anh Ashraf PA-C - Last Filed: 01/13/25 01:34> MDM - Nausea/Vomiting/Diarrhea MDM Narrative Medical decision making narrative: Patient presented to ED with nausea, vomiting since yesterday, unable to keep down food or drink. Vital signs are stable upon arrival. Afebrile. Patient mildly ill/uncomfortable appearing. Cbc without leukocytosis. Likely hemoconcentration with elevated hemoglobin. CMP with sodium of 134, bicarb 21. Kidney function is stable. Blood glucose 143. Lactic acid within normal range at 1.4. Normal LFTs and lipase. Viral swabs are negative. UA with possible infection, 2+ leuk esterase, 21-50 WBC. Sent for culture. Will treat. Given dose of Rocephin in the ED. CT brain negative. CT abdomen/pelvis obtained showing suspicious mass of left lower lobe. No acute intra-abdominal findings. CT chest was obtained and showing intercostal muscle herniation likely a result of previous surgery. Patient has had previous cardiothoracic surgery in the past. Findings are not consistent with malignancy. Patient given 2 L of fluid, Benadryl, Reglan, Protonix, Zofran. Patient initially felt improved, however attempted PO challenge, and patient began vomiting again. Unable to tolerate any p.o. intake. Will admit for further evaluation, continued nausea management, continued hydration. Discussed case with Dr. Crain, hospitalist, accepted patient for admission. Recommended continuous fluids, zofran 4mg q6h prn, im Phenergan 25 q4h prn for intractable vomiting. Patient in agreement with plan and admission. <Anh Ashraf PA-C - Last Filed: 01/13/25 01:34> Medical Records Attestation: I reviewed the patient's medical records. <CONNOR Alamo Last Filed: 01/13/25 01:34> Lab Data Attestation: I reviewed the patient's lab results. <Anh Ashraf PA-C - Last Filed: 01/13/25 01:34> Result diagrams: 01/14/25 06:12 01/14/25 06:12 <Marry Santos PA-C - Last Filed: 01/15/25 10:07> Labs: Lab Results 01/12/25 01/12/25 01/12/25 Range/Units 18:48 19:03 21:29 WBC 6.9 (4.5-10.0) K/mm3 RBC 5.49 H (4.2-5.4) M/mm3 Hgb 16.9 H (12.0-15.0) g/dL Hct 52.0 H (37.0-47.0) % MCV 94.7 (80-100) fl MCH 30.8 (26-34) pg MCHC 32.5 (32-36) g/dl RDW 12.4 (11.5-14.5) % Plt Count 243 (150-375) k/mm3 MPV 10.8 H (7.4-10.4) fl Immature Gran % (Auto) 0.1 (0-0.5) % Neut % (Auto) 69.6 (45.5-73.1) % Lymph % (Auto) 24.4 (18.3-44.2) % [place] % (Auto) 5.5 (2.6-8.5) % Eos % (Auto) 0.1 (0-4.4) % Baso % (Auto) 0.3 (0.2-1.2) % Lymph # (Auto) 1.67 (0.9-3.2) K/mm3 [place] # (Auto) 0.4 (0.1-0.6) K/mm3 Eos # (Auto) 0.0 (0-0.3) K/mm3 Baso # (Auto) 0.0 (0.0-0.1) K/mm3 Abs Immat Gran (auto) 0.01 (0.00-0.031) K/mm3 Absolute Neuts (auto) 4.8 (1.3-6.7) K/mm3 Absolute Nucleated RBC 0.000 (0.0-0.012) K/mm3 Nucleated RBC % 0.0 (0.0-0.2) % Sodium 134 L (137-145) mmol/L Potassium 4.7 (3.4-5.0) mmol/L Chloride 105 (98-107) mmol/L Carbon Dioxide 21 L (22-30) mmol/L Anion Gap 8 (4-12) mmol/L BUN 16 (7-17) mg/dL Creatinine 0.71 (0.7-1.0) mg/dL Estim Creat Clear Calc 60 ml/min Estimated GFR > 60 (59 - ) Glucose 143 H (65-110) mg/dL Hemoglobin A1c (<5.7) % Lactic Acid 1.4 (0.7-2.0) mmol/L Calcium 9.5 (8.4-10.2) mg/dL Magnesium (1.6-2.3) mg/dL Total Bilirubin 1.1 (0.2-1.3) mg/dL AST 42 H (14-36) U/L ALT 32 (6-35) U/L Alkaline Phosphatase 57 (38-126) U/L Total Protein 8.2 (6.3-8.2) g/dL Albumin 4.5 (3.5-5.1) g/dL Lipase 50 (23-300) U/L Urine Color Yellow (Yellow) Urine Appearance Clear (Clear) Urine pH 6.0 (5.0-9.0) Ur Specific [place] > 1.045 H (1.001-1.035) Urine Protein Negative (Negative) mg/dL Urine Glucose (UA) Negative (Negative) mg/dL Urine Ketones 2+ H (Negative) mg/dL Ur Blood (Man) Negative (Negative) Urine Nitrate Negative (Negative) Urine Bilirubin Negative (Negative) Urine Urobilinogen 0.2 (<2.0) mg/dL Leukocyte Esterase Rfl 2+ H (Negative) MORGAN/UL Urine RBC 0-2 (0-2) /hpf Urine WBC 21-50 H (0-3) /hpf Ur Squamous Epith Cells None seen (Few) /hpf Urine Bacteria None seen /hpf Urine Casts 0-2 Influenza A (RT-PCR) Negative (Negative) Influenza B (RT-PCR) Negative (Negative) RSV (RT-PCR) Negative (Negative) SARS-CoV-2 RNA (RT-PCR) Negative (Negative) 01/13/25 01/13/25 01/14/25 Range/Units 05:39 05:44 06:12 WBC 7.6 5.4 (4.5-10.0) K/mm3 RBC 4.65 4.30 (4.2-5.4) M/mm3 Hgb 14.4 13.6 (12.0-15.0) g/dL Hct 43.9 41.3 (37.0-47.0) % MCV 94.4 96.0 (80-100) fl MCH 31.0 31.6 (26-34) pg MCHC 32.8 32.9 (32-36) g/dl RDW 12.5 12.5 (11.5-14.5) % Plt Count 217 191 (150-375) k/mm3 MPV 11.1 H 11.0 H (7.4-10.4) fl Immature Gran % (Auto) 0.2 (0-0.5) % Neut % (Auto) 47.5 (45.5-73.1) % Lymph % (Auto) 39.1 (18.3-44.2) % [place] % (Auto) 11.7 H (2.6-8.5) % Eos % (Auto) 1.1 (0-4.4) % Baso % (Auto) 0.4 (0.2-1.2) % Lymph # (Auto) 2.10 (0.9-3.2) K/mm3 [place] # (Auto) 0.6 (0.1-0.6) K/mm3 Eos # (Auto) 0.1 (0-0.3) K/mm3 Baso # (Auto) 0.0 (0.0-0.1) K/mm3 Abs Immat Gran (auto) 0.01 (0.00-0.031) K/mm3 Absolute Neuts (auto) 2.6 (1.3-6.7) K/mm3 Absolute Nucleated RBC 0.000 (0.0-0.012) K/mm3 Nucleated RBC % 0.0 (0.0-0.2) % Sodium 136 L 138 (137-145) mmol/L Potassium 3.6 3.3 L (3.4-5.0) mmol/L Chloride 106 106 (98-107) mmol/L Carbon Dioxide 21 L 26 (22-30) mmol/L Anion Gap 9 6 (4-12) mmol/L BUN 13 11 (7-17) mg/dL Creatinine 0.60 L 0.70 (0.7-1.0) mg/dL Estim Creat Clear Calc 69 60 ml/min Estimated GFR > 60 > 60 (59 - ) Glucose 133 H 80 (65-110) mg/dL Hemoglobin A1c 6.1 H (<5.7) % Lactic Acid (0.7-2.0) mmol/L Calcium 8.7 8.3 L (8.4-10.2) mg/dL Magnesium 2.1 (1.6-2.3) mg/dL Total Bilirubin 0.9 (0.2-1.3) mg/dL AST 31 (14-36) U/L ALT 8 (6-35) U/L Alkaline Phosphatase 48 (38-126) U/L Total Protein 6.0 L (6.3-8.2) g/dL Albumin 3.3 L (3.5-5.1) g/dL Lipase (23-300) U/L Urine Color (Yellow) Urine Appearance (Clear) Urine pH (5.0-9.0) Ur Specific [place] (1.001-1.035) Urine Protein (Negative) mg/dL Urine Glucose (UA) (Negative) mg/dL Urine Ketones (Negative) mg/dL Ur Blood (Man) (Negative) Urine Nitrate (Negative) Urine Bilirubin (Negative) Urine Urobilinogen (<2.0) mg/dL Leukocyte Esterase Rfl (Negative) MORGAN/UL Urine RBC (0-2) /hpf Urine WBC (0-3) /hpf Ur Squamous Epith Cells (Few) /hpf Urine Bacteria /hpf Urine Casts Influenza A (RT-PCR) (Negative) Influenza B (RT-PCR) (Negative) RSV (RT-PCR) (Negative) SARS-CoV-2 RNA (RT-PCR) (Negative) <Marry Santos PA-C - Last Filed: 01/15/25 10:07> Lab Results 01/12/25 01/12/25 01/12/25 Range/Units 18:48 19:03 21:29 WBC 6.9 (4.5-10.0) K/mm3 RBC 5.49 H (4.2-5.4) M/mm3 Hgb 16.9 H (12.0-15.0) g/dL Hct 52.0 H (37.0-47.0) % MCV 94.7 (80-100) fl MCH 30.8 (26-34) pg MCHC 32.5 (32-36) g/dl RDW 12.4 (11.5-14.5) % Plt Count 243 (150-375) k/mm3 MPV 10.8 H (7.4-10.4) fl Immature Gran % (Auto) 0.1 (0-0.5) % Neut % (Auto) 69.6 (45.5-73.1) % Lymph % (Auto) 24.4 (18.3-44.2) % [place] % (Auto) 5.5 (2.6-8.5) % Eos % (Auto) 0.1 (0-4.4) % Baso % (Auto) 0.3 (0.2-1.2) % Lymph # (Auto) 1.67 (0.9-3.2) K/mm3 [place] # (Auto) 0.4 (0.1-0.6) K/mm3 Eos # (Auto) 0.0 (0-0.3) K/mm3 Baso # (Auto) 0.0 (0.0-0.1) K/mm3 Abs Immat Gran (auto) 0.01 (0.00-0.031) K/mm3 Absolute Neuts (auto) 4.8 (1.3-6.7) K/mm3 Absolute Nucleated RBC 0.000 (0.0-0.012) K/mm3 Nucleated RBC % 0.0 (0.0-0.2) % Sodium 134 L (137-145) mmol/L Potassium 4.7 (3.4-5.0) mmol/L Chloride 105 (98-107) mmol/L Carbon Dioxide 21 L (22-30) mmol/L Anion Gap 8 (4-12) mmol/L BUN 16 (7-17) mg/dL Creatinine 0.71 (0.7-1.0) mg/dL Estim Creat Clear Calc 60 ml/min Estimated GFR > 60 (59 - ) Glucose 143 H (65-110) mg/dL Hemoglobin A1c (<5.7) % Lactic Acid 1.4 (0.7-2.0) mmol/L Calcium 9.5 (8.4-10.2) mg/dL Magnesium (1.6-2.3) mg/dL Total Bilirubin 1.1 (0.2-1.3) mg/dL AST 42 H (14-36) U/L ALT 32 (6-35) U/L Alkaline Phosphatase 57 (38-126) U/L Total Protein 8.2 (6.3-8.2) g/dL Albumin 4.5 (3.5-5.1) g/dL Lipase 50 (23-300) U/L Urine Color Yellow (Yellow) Urine Appearance Clear (Clear) Urine pH 6.0 (5.0-9.0) Ur Specific [place] > 1.045 H (1.001-1.035) Urine Protein Negative (Negative) mg/dL Urine Glucose (UA) Negative (Negative) mg/dL Urine Ketones 2+ H (Negative) mg/dL Ur Blood (Man) Negative (Negative) Urine Nitrate Negative (Negative) Urine Bilirubin Negative (Negative) Urine Urobilinogen 0.2 (<2.0) mg/dL Leukocyte Esterase Rfl 2+ H (Negative) MORGAN/UL Urine RBC 0-2 (0-2) /hpf Urine WBC 21-50 H (0-3) /hpf Ur Squamous Epith Cells None seen (Few) /hpf Urine Bacteria None seen /hpf Urine Casts 0-2 Influenza A (RT-PCR) Negative (Negative) Influenza B (RT-PCR) Negative (Negative) RSV (RT-PCR) Negative (Negative) SARS-CoV-2 RNA (RT-PCR) Negative (Negative) 01/13/25 01/13/25 01/14/25 Range/Units 05:39 05:44 06:12 WBC 7.6 5.4 (4.5-10.0) K/mm3 RBC 4.65 4.30 (4.2-5.4) M/mm3 Hgb 14.4 13.6 (12.0-15.0) g/dL Hct 43.9 41.3 (37.0-47.0) % MCV 94.4 96.0 (80-100) fl MCH 31.0 31.6 (26-34) pg MCHC 32.8 32.9 (32-36) g/dl RDW 12.5 12.5 (11.5-14.5) % Plt Count 217 191 (150-375) k/mm3 MPV 11.1 H 11.0 H (7.4-10.4) fl Immature Gran % (Auto) 0.2 (0-0.5) % Neut % (Auto) 47.5 (45.5-73.1) % Lymph % (Auto) 39.1 (18.3-44.2) % [place] % (Auto) 11.7 H (2.6-8.5) % Eos % (Auto) 1.1 (0-4.4) % Baso % (Auto) 0.4 (0.2-1.2) % Lymph # (Auto) 2.10 (0.9-3.2) K/mm3 [place] # (Auto) 0.6 (0.1-0.6) K/mm3 Eos # (Auto) 0.1 (0-0.3) K/mm3 Baso # (Auto) 0.0 (0.0-0.1) K/mm3 Abs Immat Gran (auto) 0.01 (0.00-0.031) K/mm3 Absolute Neuts (auto) 2.6 (1.3-6.7) K/mm3 Absolute Nucleated RBC 0.000 (0.0-0.012) K/mm3 Nucleated RBC % 0.0 (0.0-0.2) % Sodium 136 L 138 (137-145) mmol/L Potassium 3.6 3.3 L (3.4-5.0) mmol/L Chloride 106 106 (98-107) mmol/L Carbon Dioxide 21 L 26 (22-30) mmol/L Anion Gap 9 6 (4-12) mmol/L BUN 13 11 (7-17) mg/dL Creatinine 0.60 L 0.70 (0.7-1.0) mg/dL Estim Creat Clear Calc 69 60 ml/min Estimated GFR > 60 > 60 (59 - ) Glucose 133 H 80 (65-110) mg/dL Hemoglobin A1c 6.1 H (<5.7) % Lactic Acid (0.7-2.0) mmol/L Calcium 8.7 8.3 L (8.4-10.2) mg/dL Magnesium 2.1 (1.6-2.3) mg/dL Total Bilirubin 0.9 (0.2-1.3) mg/dL AST 31 (14-36) U/L ALT 8 (6-35) U/L Alkaline Phosphatase 48 (38-126) U/L Total Protein 6.0 L (6.3-8.2) g/dL Albumin 3.3 L (3.5-5.1) g/dL Lipase (23-300) U/L Urine Color (Yellow) Urine Appearance (Clear) Urine pH (5.0-9.0) Ur Specific [place] (1.001-1.035) Urine Protein (Negative) mg/dL Urine Glucose (UA) (Negative) mg/dL Urine Ketones (Negative) mg/dL Ur Blood (Man) (Negative) Urine Nitrate (Negative) Urine Bilirubin (Negative) Urine Urobilinogen (<2.0) mg/dL Leukocyte Esterase Rfl (Negative) MORGAN/UL Urine RBC (0-2) /hpf Urine WBC (0-3) /hpf Ur Squamous Epith Cells (Few) /hpf Urine Bacteria /hpf Urine Casts Influenza A (RT-PCR) (Negative) Influenza B (RT-PCR) (Negative) RSV (RT-PCR) (Negative) SARS-CoV-2 RNA (RT-PCR) (Negative) <Anh Ashraf PA-C - Last Filed: 01/13/25 01:34> Imaging Data Attestation: I personally reviewed and interpreted this imaging study as follows: <Anh Ashraf PA-C - Last Filed: 01/13/25 01:34> Radiologist's impression: ITS Impressions Head CT 01/12/25 20:37 IMPRESSION: 1. No acute intracranial abnormality. Abdomen/Pelvis CT 01/12/25 20:40 IMPRESSION: 1. No acute abdominal abnormality. 2: New pleural-based 2.8 cm mass left lower lobe, suspicious for malignancy. Correlation with pet/CT or percutaneous biopsy recommended. Chest CT 01/12/25 21:22 IMPRESSION: 1. Soft tissue density previously seen along the left lower thoracic pleural surface is now significantly less prominent, most compatible with intermittent intercostal muscle herniation. The marked variability in soft tissue prominence over a short interval suggests dynamic intercostal muscle herniation, condition that may occur through congenital, traumatic or postsurgical defects in the thoracic wall. Correlate for prior history of surgery at this location. Adjacent atelectasis/scarring is present. Finding is not typical for neoplasm and are most likely benign and mechanical in nature. Consider follow-up CT chest in 3 months. <Anh Ashraf PA-C - Last Filed: 01/13/25 01:34> Critical Care Time Critical Care Time Critical Care Time: No <CONNOR Alejo Last Filed: 01/15/25 10:07> Discharge Plan Discharge Clinical Impression: Intractable nausea and vomiting, Abnormal urinalysis <CONNOR Alejo Last Filed: 01/15/25 10:07> Patient Disposition: Still a Patient <CONNOR Alejo Last Filed: 01/15/25 10:07> Condition: Stable <CONNOR Alejo Last Filed: 01/15/25 10:07>
[2025-01-12 19:01] LABS: Hematocrit 52.0 % (37.0-47.0); Hemoglobin 16.9 g/dL (12.0-15.0); Immature Granulocyte Percent A 0.1 % (0-0.5); Lymphocytes Absolute Auto 1.67 K/mm3 (0.9-3.2); Mean Corpuscular HGB Conc 32.5 g/dl (32-36); Mean Corpuscular Hemoglobin 30.8 pg (26-34); Mean Corpuscular Volume 94.7 fl (80-100); Nucleated Red Blood Cells Absolute Auto 0.000 K/mm3 (0.0-0.012); Nucleated Red Blood Cells Perc 0.0 % (0.0-0.2); Platelet Count Result 243 k/mm3 (150-375); Red Blood Count 5.49 M/mm3 (4.2-5.4); White Blood Count 6.9 K/mm3 (4.5-10.0)
[2025-01-12 19:13] LABS: Alanine Aminotransferase 32 U/L (6-35); Albumin Level 4.5 g/dL (3.5-5.1); Alkaline Phosphatase 57 U/L (38-126); Anion Gap 8 mmol/L (4-12); Aspartate Amino Transferase 42 U/L (14-36); Bilirubin,Total 1.1 mg/dL (0.2-1.3); Blood Urea Nitrogen 16 mg/dL (7-17); Calcium 9.5 mg/dL (8.4-10.2); Carbon Dioxide 21 mmol/L (22-30); Chloride 105 mmol/L (98-107); Estimated CRCL calculation 60 ml/min; Estimated Glomerular Filt Rate > 60; Glucose 143 mg/dL (65-110); Lipase 50 U/L (23-300); Potassium 4.7 mmol/L (3.4-5.0); Sodium 134 mmol/L (137-145); Total Protein 8.2 g/dL (6.3-8.2)
[2025-01-12] MEDS: SODIUM CHLORIDE 0.9% IV 1,000 ML 999 ML IV CONT ×2 (19:27→20:17)
[2025-01-12] MEDS: ONDANSETRON INJ 4 MG/2 ML VIAL IV PUSH (19:27)
--- NOTE | 2025-01-12 19:38 | PC.NURSE ---
Report received from BETI Khan. Assumed care of patient at this time.
[2025-01-12 19:47] LABS: Influenza A QL RT-PCR Negative (Negative); Influenza B QL RT-PCR Negative (Negative); RSV RNA, RT-PCR Negative (Negative); SARS-CoV-2 RNA PCR Negative (Negative)
--- NOTE | 2025-01-12 19:48 | PC.NURSE ---
Patient states she is still nauseous, PA notified.
[2025-01-12] MEDS: METOCLOPRAMIDE HCL INJ 10 MG/2 ML VIAL IV PUSH (20:18)
[2025-01-12] MEDS: PANTOPRAZOLE SODIUM IV 40 MG VIAL IV PUSH (20:18)
[2025-01-12 21:41] LABS: Add Urine Microscopic? YES; Appearance Urine Clear (Clear); Glucose Urine UA Negative (Negative); Leukocyte Esterase Ur 2+ LEU/UL (Negative); Nitrate Urine Negative (Negative); Non Pathogenic Casts 0-2; Specific Grav Ur > 1.045 (1.001-1.035)
--- NOTE | 2025-01-12 22:52 | PC.NURSE ---
Patient given water and crackers for PO challenge, patient vomited after. PA notified.
[2025-01-12] MEDS: cefTRIAXone 1 GM in SODIUM CHLORIDE 0.9% IV 50 ML 100 ML IVPB (23:16)
[2025-01-13] VITALS (10 sets, daily range): BP systolic 121–166; BP diastolic 61–94; PULSE 62–88; RESP 16–19; TEMP 36.3–37.2; O2SAT 91–98; BMI 33.2
--- NOTE | 2025-01-13 02:10 | ADMGEN ---
This patient, Hitesh Chase, was admitted to 3 [facility] Surg Room 311-01. Patient/family oriented to hospital policies and general routines including ID bracelet, bed and alarms, visiting hours, pain management, procedures, bathroom and other care routines, personal items, smoking policy, room service/diet, and visiting hours. Information on how to activate the Rapid Response Team has been discussed. Patient/Family are encouraged to report perceived risks to care and to ask questions if they do not understand what they are told or what they should do.
[2025-01-13] MEDS: ONDANSETRON INJ 4 MG/2 ML VIAL IV PUSH ×2 (02:45→12:58)
[2025-01-13] MEDS: SODIUM CHLORIDE 0.9% IV 1,000 ML 100 ML IV CONT ×2 (02:45→12:58)
[2025-01-13] MEDS: PROMETHAZINE HCL 25 MG/ML AMPUL IM ×2 (03:17→08:32)
[2025-01-13 06:22] LABS: Hematocrit 43.9 % (37.0-47.0); Hemoglobin 14.4 g/dL (12.0-15.0); Mean Corpuscular HGB Conc 32.8 g/dl (32-36); Mean Corpuscular Hemoglobin 31.0 pg (26-34); Mean Corpuscular Volume 94.4 fl (80-100); Platelet Count Result 217 k/mm3 (150-375); Red Blood Count 4.65 M/mm3 (4.2-5.4); White Blood Count 7.6 K/mm3 (4.5-10.0)
[2025-01-13 06:40] LABS: Anion Gap 9 mmol/L (4-12); Blood Urea Nitrogen 13 mg/dL (7-17); Calcium 8.7 mg/dL (8.4-10.2); Carbon Dioxide 21 mmol/L (22-30); Chloride 106 mmol/L (98-107); Estimated CRCL calculation 69 ml/min; Estimated Glomerular Filt Rate > 60; Glucose 133 mg/dL (65-110); Magnesium 2.1 mg/dL (1.6-2.3); Potassium 3.6 mmol/L (3.4-5.0); Sodium 136 mmol/L (137-145)
[2025-01-13] MEDS: PANTOPRAZOLE SODIUM IV 40 MG VIAL IV PUSH (08:32)
--- NOTE | 2025-01-13 09:38 | PM.IMHP ---
H&P: HPI History of Present Illness Date/Time: 01/13/25 0800 Chief Complaint: Intractable vomiting Narrative: 79-year-old female with a past medical history of fibromyalgia, Parkinson's disease, lupus, GERD, left breast cancer s/p mastectomy who presented to the ED on 01/12/2025 with complaints of intractable nausea and vomiting earlier in the day. She tried taking her home Zofran with little relief. There is some abdominal pain while vomiting. States she feels dehydrated. She denies fevers, diarrhea, and dysuria. No aggravating or alleviating factors. Family member at bedside reports that patient has had episodes like this in the past, but has never had an official diagnosis. In the ED, vital signs stable and patient was afebrile. No leukocytosis, elevated hemoglobin (likely hemoconcentration), Na 134, bicarb 21. Renal function stable. Glucose 143. Lactic acid within normal range. Normal LFTs and lipase. Viral swab negative. UA with possible infection (2+ leuk esterase, 21-50 WBC). Sent for culture. Rocephin given in ED. CT head negative. CT abdomen pelvis showed suspicious mass of the left lower lobe and no acute intra-abdominal findings. Subsequent CT chest revealed intercostal muscle herniation, likely the result of the previous surgery. Not suspicious for malignancy. Patient has had previous cardiothoracic surgery in the past. Patient was given 2 L of fluid, Benadryl, Reglan, Protonix, Zofran. Patient initially felt better but failed p.o. challenge and began to vomit again. Admitted for further management and hydration. Review of Systems Review of Systems: All systems reviewed & are unremarkable except as noted in HPI. All systems reviewed & are unremarkable except as noted in HPI and below [facility] Past Medical History Medical History (Updated 01/13/25 @ 12:54 by Celena Covarrubias APRN) Obesity GERD with esophagitis Erosive esophagitis Polycythemia, secondary Cancer of left breast Osteoporosis Undifferentiated connective tissue disease Vitamin D deficiency Generalized osteoarthritis of multiple sites History of frequent headaches Hypertriglyceridemia Fibromyalgia Lupus Parkinson disease Seasonal allergies Surgical History Surgical History H/O total hysterectomy History of repair of hiatal hernia History of esophagogastroduodenoscopy (EGD) ([place]) H/O mastectomy left Family History Family History Grandparent Family history of cardiovascular disease Carcinoma of colon Family history of emphysema Family history of thoracic aortic aneurysm Mother Family history of cardiac disorder Father Family history of malignant neoplasm of brain Social History Social History (Updated 01/13/25 @ 03:07 by Remy Ricks RN) Social History: She has been for 35 years. 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 she rarely drinks alcohol and only in small amounts. She is a lifelong nonsmoker. She denies any illicit substance use of any type. Code status: Full code Surrogate decision maker: Carlee () Smoking status: Never smoker Second hand tobacco smoke exposure: No Alcohol intake: never Substance use: never Substance use type: does not use Lack of Transportation: YES Lack of Food: Never True Current Housing: I Have Housing Concerned About Future Housing: No Difficulty Paying Gas/Electric Bills: No Difficulty Paying for Meds: No Currently Unemployed: No Education: High School Diploma/GED Difficulty w/ Childcare or Family Care: No Living arrangements: with family Occupation/Education: retired Gender identity (if verbalized by the patient): Female Sexual Orientation (if Verbalized by the Patient): Straight or Heterosexual Spiritual care concerns: No Meds Home Medications and Allergies Home Medications ?Medication ?Instructions ?Recorded ?Confirmed ?Type carbidopa ER 50 mg-levodopa 200 mg 1 tablet PO HS 02/28/19 01/13/25 History tablet,extended release letrozole 2.5 mg tablet 2.5 mg PO DAILY 10/02/19 01/13/25 History calcium 600 mg (as 1 cap PO DAILY 05/28/20 01/13/25 History carbonate)-vitamin D3 12.5 mcg (500 unit) capsule (Calcium with Vit D3) coenzyme U68-raljdey E 100 mg-100 1 cap PO DAILY 05/28/20 01/13/25 History unit capsule multivitamin (Daily Multi-Vitamin 1 tablet PO DAILY 05/28/20 01/13/25 History tablet) vitamin E (dl, acetate) 450 mg 4,000 mg PO DAILY 05/28/20 01/13/25 History (1,000 unit) capsule benzonatate 200 mg capsule 200 mg PO TID PRN cough #30 caps 11/27/23 09/27/25 Rx ondansetron 4 mg disintegrating 4 mg PO Q8H PRN nausea and 01/04/24 01/13/25 Rx tablet vomiting #30 tabs pantoprazole 40 mg tablet,delayed See Rx Instructions .Route 01/04/24 01/13/25 Rx release .COMPLEX #90 tabs carbidopa 25 mg-levodopa 100 mg 1.5 tablet PO TID 03/02/24 01/13/25 History tablet gabapentin 600 mg tablet See Rx Instructions .Route 06/21/24 01/13/25 Rx .COMPLEX #360 tabs zolpidem 5 mg tablet 5 mg PO QHS PRN insomnia #90 tabs 10/30/24 01/13/25 Rx biotin 1,000 mcg chewable tablet 1,000 mcg PO BID 01/13/25 01/13/25 History magnesium 200 mg tablet 400 mg PO DAILY 01/13/25 01/13/25 History potassium 99 mg tablet 99 mg PO DAILY 01/13/25 01/13/25 History zinc 15 mg tablet 15 mg PO DAILY 01/13/25 01/13/25 History Allergies Allergy/AdvReac Type Severity Reaction Status Date / Time ciprofloxacin Allergy Unknown Difficulty Verified 01/12/25 18:50 Breathing levofloxacin Allergy Unknown Difficulty Verified 01/12/25 18:50 Breathing Vital Signs Vital Signs - 24 hr 01/12/25 16:44 01/12/25 18:33 01/12/25 18:48 Temperature 97.8 F Pulse Rate 76 73 Respiratory Rate 18 16 Blood Pressure 141/80 H 154/84 H Pulse Oximetry 97 98 96 01/12/25 18:50 01/12/25 18:51 01/12/25 19:00 Temperature Pulse Rate Respiratory Rate Blood Pressure 154/84 H Pulse Oximetry 96 97 94 01/12/25 19:15 01/12/25 19:32 01/12/25 19:45 Temperature Pulse Rate Respiratory Rate Blood Pressure Pulse Oximetry 94 95 98 01/12/25 20:00 01/12/25 20:15 01/12/25 20:37 Temperature Pulse Rate Respiratory Rate Blood Pressure Pulse Oximetry 100 99 95 01/12/25 20:38 01/12/25 20:48 01/12/25 21:08 Temperature Pulse Rate Respiratory Rate Blood Pressure 144/80 H Pulse Oximetry 96 94 93 01/12/25 21:31 01/12/25 21:43 01/12/25 21:45 Temperature Pulse Rate 89 Respiratory Rate 17 Blood Pressure 177/94 H Pulse Oximetry 96 96 94 01/12/25 22:03 01/12/25 22:33 01/12/25 22:48 Temperature Pulse Rate Respiratory Rate Blood Pressure Pulse Oximetry 98 94 98 01/12/25 23:00 01/12/25 23:02 01/12/25 23:15 Temperature Pulse Rate Respiratory Rate Blood Pressure 170/79 H Pulse Oximetry 96 96 93 01/12/25 23:30 01/12/25 23:31 01/12/25 23:39 Temperature Pulse Rate 82 Respiratory Rate 16 Blood Pressure 156/88 H 156/88 H Pulse Oximetry 92 92 94 01/12/25 23:45 01/13/25 00:00 01/13/25 00:01 Temperature Pulse Rate Respiratory Rate Blood Pressure 143/84 H Pulse Oximetry 91 91 91 01/13/25 00:15 01/13/25 00:30 01/13/25 00:31 Temperature Pulse Rate 88 Respiratory Rate 19 Blood Pressure 166/94 H Pulse Oximetry 93 95 94 01/13/25 00:46 01/13/25 01:00 01/13/25 06:00 Temperature 98.4 F Pulse Rate 81 Respiratory Rate 18 Blood Pressure 146/79 H Pulse Oximetry 93 97 96 Exam Narrative: GENERAL: non-toxic, in no acute distress. HEAD: Normocephalic, atraumatic. RESPIRATORY: Airway patent, respirations nonlabored. Clear to auscultation bilaterally, no rales, rhonchi, wheezing. CARDIOVASCULAR: RRR without murmurs, rubs, or gallops. ABDOMINAL: Soft, mild diffuse tenderness throughout upper abdomen, nondistended. Normoactive BS. MUSCULOSKELETAL: Moves all extremities well. No gross deformities. SKIN: Warm, dry, normal color. NEURO: A&O X4. Speech clear. Cranial nerves II-XII grossly intact. Steady gait. Diffusely tremulous. PSYCHIATRIC: Appropriate mood and affect. Normal interaction. H&P: Results Labs Labs: Short CBC 01/12/25 01/13/25 Range/Units 18:48 05:44 WBC 6.9 7.6 (4.5-10.0) K/mm3 Hgb 16.9 H 14.4 (12.0-15.0) g/dL Hct 52.0 H 43.9 (37.0-47.0) % Plt Count 243 217 (150-375) k/mm3 BMP 01/12/25 01/13/25 18:48 05:44 Sodium 134 L 136 L Potassium 4.7 3.6 Chloride 105 106 Carbon Dioxide 21 L 21 L BUN 16 13 Creatinine 0.71 0.60 L Glucose 143 H 133 H Calcium 9.5 8.7 Liver Function 01/12/25 Range/Units 18:48 Total Bilirubin 1.1 (0.2-1.3) mg/dL AST 42 H (14-36) U/L ALT 32 (6-35) U/L Alkaline Phosphatase 57 (38-126) U/L Albumin 4.5 (3.5-5.1) g/dL Urine 01/12/25 Range/Units 21:29 Urine Color Yellow (Yellow) Urine Appearance Clear (Clear) Urine pH 6.0 (5.0-9.0) Ur Specific [place] > 1.045 H (1.001-1.035) Urine Protein Negative (Negative) mg/dL Urine Glucose (UA) Negative (Negative) mg/dL Assessment and Plan Assessment and plan (1) Intractable nausea and vomiting: Code(s): R11.2 - Nausea with vomiting, unspecified Status: Acute Assessment and Plan: unclear etiology Continue IV hydration trend CBC, CMP PRN antiemetics Advance diet as tolerated (2) Parkinson disease: Qualifiers: Dyskinesia presence: unspecified whether dyskinesia Fluctuating manifestations: unspecified whether manifestations fluctuate Qualified Code(s): G20.A1 - Parkinson's disease without dyskinesia, without mention of fluctuations Code(s): G20 - Parkinson's disease Status: Chronic Assessment and Plan: home Sinemet (3) Elevated glucose: Code(s): R73.09 - Other abnormal glucose Status: Acute Assessment and Plan: No hx DM Check A1C (4) Headache: Code(s): R51.9 - Headache, unspecified Status: Acute Assessment and Plan: Likely related to multiple episodes of vomiting [place] 5/325 once acetaminophen 1G Q6H PRN (5) Abnormal urinalysis: Code(s): R82.90 - Unspecified abnormal findings in urine Status: Acute Assessment and Plan: UA with WBC 21-50 Await culture results Continue ceftriaxone Quality VTE Prophylaxis VTE prophylaxis: mechanical ordered (SCDs) Hospitalist MIPS Advance Care Plan I have confirmed that the patient's Advanced Care Plan is present, code status is documented, or surrogate decision maker is listed in patient medical record.: Yes Medication Reconciliation I have utilized all available resources to obtain, update and review the patients current medications (includes all prescriptions, OTC, herbals, cannabis, and nutritional supplements).: Yes
[2025-01-13] MEDS: LETROZOLE (*CHEMO) 2.5 MG TABLET PO (10:18)
[2025-01-13] MEDS: HYDROcodone/acetaminophen (*CRX) 5-325 MG TABLET 1 TAB PO (12:40)
[2025-01-13 13:50] LABS: Hemoglobin A1C 6.1 % (<5.7)
[2025-01-13] MEDS: CARBIDOPA/LEVODOPA 25/100 MG TABLET 1.5 TABLET PO (16:42)
[2025-01-13] MEDS: GABAPENTIN 300 MG CAPSULE 600 MG BY MOUTH (17:32)
[2025-01-13] MEDS: CARBIDOPA/LEVODOPA 25/100 MG CR TABLET 2 TABLET PO (20:57)
[2025-01-13] MEDS: cefTRIAXone 1 GM in SODIUM CHLORIDE 0.9% IV 50 ML 100 ML IVPB (20:58)
[2025-01-14] MEDS: SODIUM CHLORIDE 0.9% IV 1,000 ML 100 ML IV CONT ×2 (01:02→13:40)
[2025-01-14] MEDS: GABAPENTIN 300 MG CAPSULE 600 MG BY MOUTH ×5 (01:02→20:41)
[2025-01-14 06:00] VITALS: BP 158/75; PULSE 55; RESP 18; TEMP 36.8; O2SAT 95
[2025-01-14 06:37] LABS: Hematocrit 41.3 % (37.0-47.0); Hemoglobin 13.6 g/dL (12.0-15.0); Immature Granulocyte Percent A 0.2 % (0-0.5); Lymphocytes Absolute Auto 2.10 K/mm3 (0.9-3.2); Mean Corpuscular HGB Conc 32.9 g/dl (32-36); Mean Corpuscular Hemoglobin 31.6 pg (26-34); Mean Corpuscular Volume 96.0 fl (80-100); Nucleated Red Blood Cells Absolute Auto 0.000 K/mm3 (0.0-0.012); Nucleated Red Blood Cells Perc 0.0 % (0.0-0.2); Platelet Count Result 191 k/mm3 (150-375); Red Blood Count 4.30 M/mm3 (4.2-5.4); White Blood Count 5.4 K/mm3 (4.5-10.0)
[2025-01-14 06:58] LABS: Alanine Aminotransferase 8 U/L (6-35); Albumin Level 3.3 g/dL (3.5-5.1); Alkaline Phosphatase 48 U/L (38-126); Anion Gap 6 mmol/L (4-12); Aspartate Amino Transferase 31 U/L (14-36); Bilirubin,Total 0.9 mg/dL (0.2-1.3); Blood Urea Nitrogen 11 mg/dL (7-17); Calcium 8.3 mg/dL (8.4-10.2); Carbon Dioxide 26 mmol/L (22-30); Chloride 106 mmol/L (98-107); Estimated CRCL calculation 60 ml/min; Estimated Glomerular Filt Rate > 60; Glucose 80 mg/dL (65-110); Potassium 3.3 mmol/L (3.4-5.0); Sodium 138 mmol/L (137-145); Total Protein 6.0 g/dL (6.3-8.2)
[2025-01-14] MEDS: LETROZOLE (*CHEMO) 2.5 MG TABLET PO (09:02)
[2025-01-14] MEDS: CARBIDOPA/LEVODOPA 25/100 MG TABLET 1.5 TABLET PO ×3 (09:02→17:03)
[2025-01-14] MEDS: PANTOPRAZOLE SODIUM IV 40 MG VIAL IV PUSH ×2 (09:03→20:24)
[2025-01-14] MEDS: POTASSIUM CHLORIDE INJ 40 MEQ in SODIUM CHLORIDE 0.9% IV 500 ML 130 MEQ IVPB (10:13)
--- NOTE | 2025-01-14 13:24 | P.PNIM_ITS ---
Progress Note: A&P Assessment and Plan (1) Intractable nausea and vomiting: Code(s): R11.2 - Nausea with vomiting, unspecified Status: Acute Assessment and Plan: Patient reports history intermittent intractable nausea vomiting, patient previously followed outpatient with Dr. Fraga with GI last EGD showed reflux esophagitis and hiatal hernia. CT abdomen with no acute findings however patient reports coffee-ground emesis, hemoglobin stable 13.6 * IV Fluids * Antiemetics * Advance diet as tolerated/NPO after midnight for possible EGD after seen by GI * GI consulted for any further recommendations appreciated * Monitor H&H * Bentyl p.r.n. abdominal cramping * PPI b.i.d. * Carafate with each meal (2) Headache: Code(s): R51.9 - Headache, unspecified Status: Acute Assessment and Plan: Likely secondary to patient's dehydration from nausea vomiting still present after IV hydration. * gave 1x dose Toradol * [place] 5/325 once * Acetaminophen p.r.n. * Continue IV fluids (3) Elevated glucose: Code(s): R73.09 - Other abnormal glucose Status: Acute Assessment and Plan: Patient with no history of diabetes in A1C was checked after elevated glucose on admission currently at 6.1 * Currently no history of diabetes * Recommend diet and exercise * In follow-up with her primary care outpatient for a A1c 3 months (4) Abnormal urinalysis: Code(s): R82.90 - Unspecified abnormal findings in urine Status: Acute Assessment and Plan: * UA suspicious for urinary tract infection * IV ceftriaxone until discharge or culture (5) Parkinson disease: Qualifiers: Dyskinesia presence: unspecified whether dyskinesia Fluctuating manifestations: unspecified whether manifestations fluctuate Qualified Code(s): G20.A1 - Parkinson's disease without dyskinesia, without mention of fluctuations Code(s): G20 - Parkinson's disease Status: Chronic Assessment and Plan: * Continue carbidopa levodopa Plan Code status: Full code per patient DVT prophylaxis: SCD's Stress ulcer prophylaxis: Protonix 40 BID PT/OT notes: Ambulatory Disposition: Patient continues admission the medical unit for instructed on nausea vomiting and abdominal pain consulted GI for further evaluation recommendations possible EGD tomorrow Time Spent With Patient Time with patient: 15 - 25 minutes Subjective Date/time seen: 01/14/25 13:24 Interval history: Patient is a 79-year-old female admitted for intractable nausea vomiting patient reports she has intermittent episodes with no alleviating factors or aggravating factors it comes on spontaneously. 01/14/2025: Patient reports she has not had a vomiting episode since last night was able to tolerate oral intake this a.m. but still feels nauseous with mild abdominal pain, denies chest pain, shortness a breath, no fever chills. Still reporting headache likely secondary to dehydration and N/V. Review of Systems Review of Systems: All systems reviewed & are unremarkable except as noted in HPI. All systems reviewed & are unremarkable except as noted in HPI and below Exam Const: General: comfortable and no acute distress HENMT: Mouth: Yes dry mucous membranes Eyes: General: appearance normal, both eyes and all related structures Neck: Neck: supple Resp: Effort & Inspection: normal respiratory effort Auscultation: clear to auscultation bilaterally Cardio: Rate: regular rate Rhythm: regular rhythm GI: GI Palp: Yes Soft to palpation and Yes Tenderness to palpation present (GI) Skin: General skin exam: normal color and no rashes or lesions noted Wounds: no wounds Neuro: General: gait normal Speech: normal speech Motor exam (neuro): 5/5 motor strength present throughout Sensory Exam: normal sensation Extrem: General: normal to inspection Psych: Mental Status: mental status grossly normal Affect: normal affect Objective Data Vital Signs Vital Signs: Vital Signs - 24 hr 01/13/25 14:00 01/13/25 22:00 01/14/25 06:00 Temperature 97.3 F L 98.9 F 98.2 F Pulse Rate 65 62 55 L Respiratory Rate 16 18 18 Blood Pressure 147/65 H 121/61 158/75 H Pulse Oximetry 93 98 95 Oxygen Delivery 01/14/25 08:00 Temperature Pulse Rate Respiratory Rate Blood Pressure Pulse Oximetry Oxygen Delivery Room Air Intake/Output Intake/Output: Intake & Output 01/11/25 01/12/25 01/13/25 01/14/25 23:59 23:59 23:59 23:59 Intake Total 2049 2149 120 Balance 2049 2149 120 Meds/Results Medications: Active Medications Generic Name Dose Route Start Last Admin Trade Name Freq PRN Reason Stop Dose Admin Acetaminophen 1,000 mg 01/13/25 12:23 Acetaminophen 500 Mg Tablet PO Q6H PRN Mild Pain (1-3) or Fever Benzonatate 200 mg 01/13/25 09:29 Benzonatate 100 Mg Capsule PO TID PRN cough Carbidopa/Levodopa 1.5 tablet 01/13/25 13:00 01/14/25 12:40 Carbidopa/Levodopa 25/100 Mg Tablet PO 1.5 tablet TID LEIGH Administration Carbidopa/Levodopa 2 tablet 01/13/25 21:00 01/13/25 20:57 Carbidopa/Levodopa 25/100 Mg Cr Tablet PO 2 tablet HS LEIGH Administration Dextrose 12.5 gm 01/12/25 23:49 Dextrose 50% 25 Gm/50 Ml Syringe IV PUSH PRN PRN Hypoglycemia Protocol Gabapentin 600 mg 01/13/25 12:00 01/14/25 12:40 Gabapentin 300 Mg Capsule BY MOUTH 600 mg Q6HR LEIGH Administration Glucagon 1 mg 01/12/25 23:49 Glucagon For Inj 1 Mg Vial IM PRN PRN Hypoglycemia Protocol Glucose 15 gm 01/12/25 23:49 Glucose Oral Gel 15 Gm Of Glucse In 37.5 Gm Tube PO PRN PRN Hypoglycemia Protocol Sodium Chloride 1,000 mls @ 100 mls/hr 01/12/25 22:55 01/14/25 01:02 Normal Saline Iv IV CONT 100 mls/hr .Q10H LEIGH Administration Dextrose 1,000 mls @ 100 mls/hr 01/12/25 23:49 Dextrose 5% 1,000 Ml IVPB PRN PRN Hypoglycemia Protocol Ceftriaxone Sodium 1 gm/ 50 mls @ 100 mls/hr 01/13/25 21:00 01/13/25 21:30 Sodium Chloride IVPB Infused Q24H LEIGH Infusion Letrozole 2.5 mg 01/13/25 10:00 01/14/25 09:02 Letrozole (*Chemo) 2.5 Mg Tablet PO 2.5 mg DAILY LEIGH Administration Ondansetron HCl 4 mg 01/12/25 23:49 01/13/25 12:58 Ondansetron Inj 4 Mg/2 Ml Vial IV PUSH 4 mg Q6H PRN Administration Nausea Pantoprazole Sodium 40 mg 01/14/25 21:00 Pantoprazole Sodium Iv 40 Mg Vial IV PUSH Q12HR LEIGH Promethazine HCl 25 mg 01/12/25 23:49 01/13/25 08:32 Promethazine Hcl 25 Mg/Ml Ampul IM 25 mg Q4H PRN Administration intractable vomiting Zolpidem Tartrate 5 mg 01/13/25 09:35 Zolpidem Tartrate (*Crx) 5 Mg Tablet PO QHS PRN Insomnia Radiology Results: ITS Impressions Head CT 01/12/25 20:37 IMPRESSION: 1. No acute intracranial abnormality. Abdomen/Pelvis CT 01/12/25 20:40 IMPRESSION: 1. No acute abdominal abnormality. 2: New pleural-based 2.8 cm mass left lower lobe, suspicious for malignancy. Correlation with pet/CT or percutaneous biopsy recommended. Chest CT 01/12/25 21:22 IMPRESSION: 1. Soft tissue density previously seen along the left lower thoracic pleural surface is now significantly less prominent, most compatible with intermittent intercostal muscle herniation. The marked variability in soft tissue prominence over a short interval suggests dynamic intercostal muscle herniation, condition that may occur through congenital, traumatic or postsurgical defects in the thoracic wall. Correlate for prior history of surgery at this location. Adjacent atelectasis/scarring is present. Finding is not typical for neoplasm and are most likely benign and mechanical in nature. Consider follow-up CT chest in 3 months. Labs Labs: Laboratory Results - last 24 hr 01/13/25 01/14/25 05:39 06:12 WBC 5.4 RBC 4.30 Hgb 13.6 Hct 41.3 MCV 96.0 MCH 31.6 MCHC 32.9 RDW 12.5 Plt Count 191 MPV 11.0 H Immature Gran % (Auto) 0.2 Neut % (Auto) 47.5 Lymph % (Auto) 39.1 [place] % (Auto) 11.7 H Eos % (Auto) 1.1 Baso % (Auto) 0.4 Lymph # (Auto) 2.10 [place] # (Auto) 0.6 Eos # (Auto) 0.1 Baso # (Auto) 0.0 Abs Immat Gran (auto) 0.01 Absolute Neuts (auto) 2.6 Absolute Nucleated RBC 0.000 Nucleated RBC % 0.0 Sodium 138 Potassium 3.3 L Chloride 106 Carbon Dioxide 26 Anion Gap 6 BUN 11 Creatinine 0.70 Estim Creat Clear Calc 60 Estimated GFR > 60 Glucose 80 Hemoglobin A1c 6.1 H Calcium 8.3 L Total Bilirubin 0.9 AST 31 ALT 8 Alkaline Phosphatase 48 Total Protein 6.0 L Albumin 3.3 L Quality VTE Prophylaxis VTE prophylaxis: mechanical ordered (SCDs) -Patient's previous records reviewed on admission -ER notes reviewed in detail on admission -discussed all findings and current treatment plan with patient/Family/POA -Consultations reviewed for recommendations -Patient's disposition for safe discharge discussed with medical case worker -radiology imaging, EKG and test results I have personally reviewed and interpreted unless otherwise specified Dictation performed by [employer] direct speech recognition software, therefore card sorter variants and typographical errors may occur. Hospitalist MIPS Advance Care Plan I have confirmed that the patient's Advanced Care Plan is present, code status is documented, or surrogate decision maker is listed in patient medical record.: Yes Medication Reconciliation I have utilized all available resources to obtain, update and review the patients current medications (includes all prescriptions, OTC, herbals, cannabis, and nutritional supplements).: Yes The patient is not eligible for med reconciliation; the patient is in a emergent medical situation where delaying treatment would jeopardize the patients health.: No
[2025-01-14] MEDS: KETOROLAC 30 MG/ML VIAL (*BKC) IV PUSH (13:40)
[2025-01-14 13:52] VITALS: BP 127/61; PULSE 60; RESP 18; TEMP 36.2; O2SAT 97
--- NOTE | 2025-01-14 14:49 | WPDGICN ---
Assessment and Plan Assessment and plan (1) Intractable nausea and vomiting: Code(s): R11.2 - Nausea with vomiting, unspecified Status: Acute Assessment and Plan: better with medication but chronic nausea will do EGD tomorrow, last time with severe esophagitis will also consider to complete work up as outpatient with [facility] to assess if gastroparesis (2) GERD with esophagitis: Code(s): K21.00 - Gastro-esophageal reflux disease with esophagitis, without bleeding Status: Acute Assessment and Plan: ppi (3) UTI (urinary tract infection): Code(s): N39.0 - Urinary tract infection, site not specified Status: Inactive Assessment and Plan: on abx, wonder if is contributing more nausea GI Consult Note Consult date/time: 01/14/25 14:49 Reason for consult: n/v HPI: Hitesh Chase is a 79 year old female past medical surgical history of breast cancer s/p radiation, parasophageal hernia repair in 2011, and grade D reflux esophagitis with medium hiatal hernia diagnosed on EGD by Dr. Fraga on 11/18/2022. She has chronic nausea for which is using zofran as needed, she has not required more hospitalizations but family members here say that she has been dealing with bouts of intermittent n/v not necessarily bad enough to come to ER but to make a follow-up appointment in our office but could not get any sooner than February. She is here with intractable N/V since , zofran this time did not help much. In the ED, No leukocytosis, Na 134, bicarb 21. Renal function stable. Glucose 143. Lactic acid within normal range. Normal LFTs and lipase. Viral swab negative. UA with possible infection (2+ leuk esterase, 21-50 WBC). Sent for culture. Rocephin given in ED. CT head negative. She is already feeling better. She has been on ppi for years. Review of Systems Constitutional: Constitutional: Denies chills Eyes: Eyes: Denies blurry vision ENT: Reports Normal hearing present Cardiovascular: Cardiovascular: Denies chest pain Respiratory: Respiratory: Denies cough Gastrointestinal: Gastrointestinal: Reports nausea and Reports vomiting Genitourinary: Genitourinary: Denies hematuria Musculoskeletal: Musculoskeletal: Denies neck pain Integumentary/Breasts: Skin/Breast: Denies rash Neurologic: Denies Abnormal speech present Psychiatric: Psychiatric: Denies behavioral changes [facility] Past Medical History Medical History (Updated 01/13/25 @ 12:54 by Celena Covarrubias APRN) Obesity GERD with esophagitis Erosive esophagitis Polycythemia, secondary Cancer of left breast Osteoporosis Undifferentiated connective tissue disease Vitamin D deficiency Generalized osteoarthritis of multiple sites History of frequent headaches Hypertriglyceridemia Fibromyalgia Lupus Parkinson disease Seasonal allergies Surgical History Surgical History H/O total hysterectomy History of repair of hiatal hernia History of esophagogastroduodenoscopy (EGD) ([place]) H/O mastectomy left Family History Family History Grandparent Family history of cardiovascular disease Carcinoma of colon Family history of emphysema Family history of thoracic aortic aneurysm Mother Family history of cardiac disorder Father Family history of malignant neoplasm of brain Social History Social History (Updated 01/13/25 @ 03:07 by Remy Ricks RN) Social History: She has been for 35 years. 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 she rarely drinks alcohol and only in small amounts. She is a lifelong nonsmoker. She denies any illicit substance use of any type. Code status: Full code Surrogate decision maker: Carlee () Smoking status: Never smoker Second hand tobacco smoke exposure: No Alcohol intake: never Substance use: never Substance use type: does not use Lack of Transportation: YES Lack of Food: Never True Current Housing: I Have Housing Concerned About Future Housing: No Difficulty Paying Gas/Electric Bills: No Difficulty Paying for Meds: No Currently Unemployed: No Education: High School Diploma/GED Difficulty w/ Childcare or Family Care: No Living arrangements: with family Occupation/Education: retired Gender identity (if verbalized by the patient): Female Sexual Orientation (if Verbalized by the Patient): Straight or Heterosexual Spiritual care concerns: No Meds Home Medications and Allergies Home Medications ?Medication ?Instructions ?Recorded ?Confirmed ?Type carbidopa ER 50 mg-levodopa 200 mg 1 tablet PO HS 02/28/19 01/13/25 History tablet,extended release letrozole 2.5 mg tablet 2.5 mg PO DAILY 10/02/19 01/13/25 History calcium 600 mg (as 1 cap PO DAILY 05/28/20 01/13/25 History carbonate)-vitamin D3 12.5 mcg (500 unit) capsule (Calcium with Vit D3) coenzyme [id number] E 100 mg-100 1 cap PO DAILY 05/28/20 01/13/25 History unit capsule multivitamin (Daily Multi-Vitamin 1 tablet PO DAILY 05/28/20 01/13/25 History tablet) vitamin E (dl, acetate) 450 mg 4,000 mg PO DAILY 05/28/20 01/13/25 History (1,000 unit) capsule benzonatate 200 mg capsule 200 mg PO TID PRN cough #30 caps 03/15/23 01/13/25 Rx ondansetron 4 mg disintegrating 4 mg PO Q8H PRN nausea and 01/04/24 01/13/25 Rx tablet vomiting #30 tabs pantoprazole 40 mg tablet,delayed See Rx Instructions .Route 01/04/24 01/13/25 Rx release .COMPLEX #90 tabs carbidopa 25 mg-levodopa 100 mg 1.5 tablet PO TID 03/02/24 01/13/25 History tablet gabapentin 600 mg tablet See Rx Instructions .Route 06/21/24 01/13/25 Rx .COMPLEX #360 tabs zolpidem 5 mg tablet 5 mg PO QHS PRN insomnia #90 tabs 10/30/24 01/13/25 Rx biotin 1,000 mcg chewable tablet 1,000 mcg PO BID 01/13/25 01/13/25 History magnesium 200 mg tablet 400 mg PO DAILY 01/13/25 01/13/25 History potassium 99 mg tablet 99 mg PO DAILY 01/13/25 01/13/25 History zinc 15 mg tablet 15 mg PO DAILY 01/13/25 01/13/25 History Allergies Allergy/AdvReac Type Severity Reaction Status Date / Time ciprofloxacin Allergy Unknown Difficulty Verified 01/12/25 18:50 Breathing levofloxacin Allergy Unknown Difficulty Verified 01/12/25 18:50 Breathing Vital Signs Vital Signs - 24 hr 01/13/25 22:00 01/14/25 06:00 01/14/25 08:00 Temperature 98.9 F 98.2 F Pulse Rate 62 55 L Respiratory Rate 18 18 Blood Pressure 121/61 158/75 H Pulse Oximetry 98 95 Oxygen Delivery Room Air 01/14/25 13:52 Temperature 97.1 F L Pulse Rate 60 Respiratory Rate 18 Blood Pressure 127/61 Pulse Oximetry 97 Oxygen Delivery Exam Const: General: comfortable and no acute distress HENMT: Face/Nose/Sinus: Normal nares present Eyes: General: appearance normal, both eyes and all related structures Neck: Neck: no JVD Resp: Auscultation: clear to auscultation bilaterally Cardio: Rate: regular rate Rhythm: regular rhythm GI: Inspection: non-distended GI Palp: Yes Soft to palpation and No Tenderness to palpation present (GI) Auscultation: normal bowel sounds Skin: General skin exam: normal color Neuro: Speech: normal speech Extrem: General: normal to inspection Psych: Mental Status: mental status grossly normal Results Labs 01/14/25 06:12 01/14/25 06:12 Labs: Short CBC 01/14/25 Range/Units 06:12 WBC 5.4 (4.5-10.0) K/mm3 Hgb 13.6 (12.0-15.0) g/dL Hct 41.3 (37.0-47.0) % Plt Count 191 (150-375) k/mm3 [facility] 01/14/25 06:12 Sodium 138 Potassium 3.3 L Chloride 106 Carbon Dioxide 26 BUN 11 Creatinine 0.70 Glucose 80 Calcium 8.3 L Liver Function 01/14/25 Range/Units 06:12 Total Bilirubin 0.9 (0.2-1.3) mg/dL AST 31 (14-36) U/L ALT 8 (6-35) U/L Alkaline Phosphatase 48 (38-126) U/L Albumin 3.3 L (3.5-5.1) g/dL
[2025-01-14] MEDS: SUCRALFATE SUSP 100 MG/ML 10 ML UDC 1000 MG PO ×2 (17:03→20:23)
[2025-01-14] MEDS: CARBIDOPA/LEVODOPA 25/100 MG CR TABLET 2 TABLET PO (20:24)
[2025-01-14] MEDS: ZOLPIDEM TARTRATE (*CRX) 5 MG TABLET PO (20:24)
[2025-01-14] MEDS: cefTRIAXone 1 GM in SODIUM CHLORIDE 0.9% IV 50 ML 100 ML IVPB (20:24)
[2025-01-14 22:00] VITALS: BP 143/74; PULSE 60; RESP 18; TEMP 36.9; O2SAT 98
[2025-01-14] MEDS: ONDANSETRON INJ 4 MG/2 ML VIAL IV PUSH (22:29)
[2025-01-15] VITALS (11 sets, daily range): BP systolic 114–149; BP diastolic 58–69; PULSE 50–62; RESP 10–24; TEMP 36.1–36.6; O2SAT 95–100
[2025-01-15] MEDS: GABAPENTIN 300 MG CAPSULE 600 MG BY MOUTH ×4 (05:50→21:27)
[2025-01-15] MEDS: SODIUM CHLORIDE 0.9% IV 1,000 ML 100 ML IV CONT ×2 (05:50→18:02)
[2025-01-15] MEDS: SUCRALFATE SUSP 100 MG/ML 10 ML UDC 1000 MG PO ×4 (05:50→21:26)
[2025-01-15] MEDS: PROMETHAZINE HCL 25 MG/ML AMPUL IM ×2 (05:52→21:24)
--- NOTE | 2025-01-15 08:07 | PC.NURSE ---
Report called to [facility].
[2025-01-15] MEDS: PANTOPRAZOLE SODIUM IV 40 MG VIAL IV PUSH ×2 (08:11→21:26)
--- NOTE | 2025-01-15 08:20 | PC.NURSE ---
To GI lab via wheelchair. Voiding without difficulty.
--- NOTE | 2025-01-15 08:32 | P.PNIM_ITS ---
Progress Note: A&P Assessment and Plan (1) Intractable nausea and vomiting: Code(s): R11.2 - Nausea with vomiting, unspecified Status: Acute Assessment and Plan: Patient reports history intermittent intractable nausea vomiting, patient previously followed outpatient with Dr. Fraga with GI last EGD showed reflux esophagitis and hiatal hernia. CT abdomen with no acute findings however patient reports coffee-ground emesis, hemoglobin stable 13.6 * IV Fluids * Antiemetics * Advance diet as tolerated/NPO after midnight for possible EGD after seen by GI * GI consulted for any further recommendations appreciated * Monitor H&H * Bentyl p.r.n. abdominal cramping * PPI b.i.d. * Carafate with each meal (2) Headache: Code(s): R51.9 - Headache, unspecified Status: Acute Assessment and Plan: Likely secondary to patient's dehydration from nausea vomiting still present after IV hydration. * gave 1x dose Toradol * Cougar 5/325 once * Acetaminophen p.r.n. * Continue IV fluids (3) Elevated glucose: Code(s): R73.09 - Other abnormal glucose Status: Acute Assessment and Plan: Patient with no history of diabetes in A1C was checked after elevated glucose on admission currently at 6.1 * Currently no history of diabetes * Recommend diet and exercise * In follow-up with her primary care outpatient for a A1c 3 months (4) Abnormal urinalysis: Code(s): R82.90 - Unspecified abnormal findings in urine Status: Acute Assessment and Plan: * UA suspicious for urinary tract infection * IV ceftriaxone until discharge or culture (5) Parkinson disease: Qualifiers: Dyskinesia presence: unspecified whether dyskinesia Fluctuating manifestations: unspecified whether manifestations fluctuate Qualified Code(s): G20.A1 - Parkinson's disease without dyskinesia, without mention of fluctuations Code(s): G20 - Parkinson's disease Status: Chronic Assessment and Plan: * Continue carbidopa levodopa Plan Code status: Full code per patient DVT prophylaxis: SCD's Stress ulcer prophylaxis: Protonix 40 BID PT/OT notes: Ambulatory Disposition: Patient continues admission the medical unit for instructed on nausea vomiting and abdominal pain consulted GI for further evaluation recommendations. EGD today Subjective Date/time seen: 01/15/25 0750 Interval history: Patient is a 79-year-old female admitted for intractable nausea vomiting patient reports she has intermittent episodes with no alleviating factors or aggravating factors it comes on spontaneously. 01/14/2025: Patient reports she has not had a vomiting episode since last night was able to tolerate oral intake this a.m. but still feels nauseous with mild abdominal pain, denies chest pain, shortness a breath, no fever chills. Still reporting headache likely secondary to dehydration and N/V. 01/15/25: Patient reports continued nausea with abd pain. No episodes of emesis. Tolerating PO. Continued headache. Review of Systems Review of Systems: All systems reviewed & are unremarkable except as noted in HPI. All systems reviewed & are unremarkable except as noted in HPI and below Exam Narrative: GENERAL: non-toxic, in no acute distress. HEAD: Normocephalic, atraumatic. RESPIRATORY: Airway patent, respirations nonlabored. Clear to auscultation bilaterally, no rales, rhonchi, wheezing. CARDIOVASCULAR: RRR without murmurs, rubs, or gallops. ABDOMINAL: Soft, mild diffuse tenderness throughout upper abdomen, nondistended. Normoactive BS. MUSCULOSKELETAL: Moves all extremities well. No gross deformities. SKIN: Warm, dry, normal color. NEURO: A&O X4. Speech clear. Cranial nerves II-XII grossly intact. PSYCHIATRIC: Appropriate mood and affect. Normal interaction. Objective Data Vital Signs Vital Signs: Vital Signs - 24 hr 01/14/25 13:52 01/14/25 22:00 01/15/25 06:00 Temperature 97.1 F L 98.4 F 97.8 F Pulse Rate 60 60 50 L Respiratory Rate 18 18 18 Blood Pressure 127/61 143/74 H 139/58 L Pulse Oximetry 97 98 97 Oxygen Delivery 01/15/25 08:15 Temperature Pulse Rate Respiratory Rate 18 Blood Pressure Pulse Oximetry 97 Oxygen Delivery Room Air Intake/Output Intake/Output: Intake & Output 01/12/25 01/13/25 01/14/25 01/15/25 23:59 23:59 23:59 23:59 Intake Total 2049 2149 3630 235 Balance 2049 2149 3630 235 Meds/Results Medications: Active Medications Generic Name Dose Route Start Last Admin Trade Name Freq PRN Reason Stop Dose Admin Acetaminophen 1,000 mg 01/13/25 12:23 Acetaminophen 500 Mg Tablet PO Q6H PRN Mild Pain (1-3) or Fever Benzonatate 200 mg 01/13/25 09:29 Benzonatate 100 Mg Capsule PO TID PRN cough Carbidopa/Levodopa 1.5 tablet 01/13/25 13:00 01/14/25 17:03 Carbidopa/Levodopa 25/100 Mg Tablet PO 1.5 tablet TID LEIGH Administration Carbidopa/Levodopa 2 tablet 01/13/25 21:00 01/14/25 20:24 Carbidopa/Levodopa 25/100 Mg Cr Tablet PO 2 tablet HS LEIGH Administration Dextrose 12.5 gm 01/12/25 23:49 Dextrose 50% 25 Gm/50 Ml Syringe IV PUSH PRN PRN Hypoglycemia Protocol Gabapentin 600 mg 01/13/25 12:00 01/15/25 05:50 Gabapentin 300 Mg Capsule BY MOUTH 600 mg Q6HR LEIGH Administration Glucagon 1 mg 01/12/25 23:49 Glucagon For Inj 1 Mg Vial IM PRN PRN Hypoglycemia Protocol Glucose 15 gm 01/12/25 23:49 Glucose Oral Gel 15 Gm Of Glucse In 37.5 Gm Tube PO PRN PRN Hypoglycemia Protocol Sodium Chloride 1,000 mls @ 100 mls/hr 01/12/25 22:55 01/15/25 08:11 Normal Saline Iv IV CONT 0 mls/hr .Q10H LEIGH Infusion Dextrose 1,000 mls @ 100 mls/hr 01/12/25 23:49 Dextrose 5% 1,000 Ml IVPB PRN PRN Hypoglycemia Protocol Ceftriaxone Sodium 1 gm/ 50 mls @ 100 mls/hr 01/13/25 21:00 01/14/25 20:24 Sodium Chloride IVPB 100 mls/hr Q24H LEIGH Administration Letrozole 2.5 mg 01/13/25 10:00 01/14/25 09:02 Letrozole (*Chemo) 2.5 Mg Tablet PO 2.5 mg DAILY LEIGH Administration Ondansetron HCl 4 mg 01/12/25 23:49 01/14/25 22:29 Ondansetron Inj 4 Mg/2 Ml Vial IV PUSH 4 mg Q6H PRN Administration Nausea Pantoprazole Sodium 40 mg 01/14/25 21:00 01/15/25 08:11 Pantoprazole Sodium Iv 40 Mg Vial IV PUSH 40 mg Q12HR LEIGH Administration Promethazine HCl 25 mg 01/12/25 23:49 01/15/25 05:52 Promethazine Hcl 25 Mg/Ml Ampul IM 12.5 mg Q4H PRN Administration intractable vomiting Sucralfate 1,000 mg 01/14/25 16:30 01/15/25 05:50 Sucralfate Susp 100 Mg/Ml 10 Ml Udc PO 1,000 mg ACHS LEIGH Administration Zolpidem Tartrate 5 mg 01/13/25 09:35 01/14/25 20:24 Zolpidem Tartrate (*Crx) 5 Mg Tablet PO 5 mg QHS PRN Administration Insomnia Radiology Results: ITS Impressions Head CT 01/12/25 20:37 IMPRESSION: 1. No acute intracranial abnormality. Abdomen/Pelvis CT 01/12/25 20:40 IMPRESSION: 1. No acute abdominal abnormality. 2: New pleural-based 2.8 cm mass left lower lobe, suspicious for malignancy. Correlation with pet/CT or percutaneous biopsy recommended. Chest CT 01/12/25 21:22 IMPRESSION: 1. Soft tissue density previously seen along the left lower thoracic pleural surface is now significantly less prominent, most compatible with intermittent intercostal muscle herniation. The marked variability in soft tissue prominence over a short interval suggests dynamic intercostal muscle herniation, condition that may occur through congenital, traumatic or postsurgical defects in the thoracic wall. Correlate for prior history of surgery at this location. Adjacent atelectasis/scarring is present. Finding is not typical for neoplasm and are most likely benign and mechanical in nature. Consider follow-up CT chest in 3 months. Quality VTE Prophylaxis VTE prophylaxis: mechanical ordered (SCDs)
--- NOTE | 2025-01-15 09:32 | WPDANESEPPF ---
Anes - Initial Pre Proc Eval Procedure: Operation Date: 01/15/25 10:00 Proposed Procedures p Esophagogastroduodenoscopy - Sky Pineda MD Date/Time: 01/15/25 09:32 Surgeon: Mary Crain DO Pre Op Diagnosis: intractable NV Patient Data Age: 79 Gender: F Height: 1.6 m Weight: 85 kg Last Vital Signs Temp 97.6 F 01/15/25 08:40 Pulse 55 L 01/15/25 08:40 Resp 18 01/15/25 08:40 BP 140/69 01/15/25 08:40 Pulse Ox 96 01/15/25 08:40 O2 Del Method Room Air 01/15/25 08:40 Allergies Allergy/AdvReac Type Severity Reaction Status Date / Time ciprofloxacin Allergy Unknown Difficulty Verified 01/15/25 08:38 Breathing levofloxacin Allergy Unknown Difficulty Verified 01/15/25 08:38 Breathing Home Medications ?Medication ?Instructions ?Recorded ?Confirmed ?Type carbidopa ER 50 mg-levodopa 200 mg 1 tablet PO HS 02/28/19 01/13/25 History tablet,extended release letrozole 2.5 mg tablet 2.5 mg PO DAILY 10/02/19 01/13/25 History calcium 600 mg (as 1 cap PO DAILY 05/28/20 01/13/25 History carbonate)-vitamin D3 12.5 mcg (500 unit) capsule (Calcium with Vit D3) coenzyme [id number] E 100 mg-100 1 cap PO DAILY 05/28/20 01/13/25 History unit capsule multivitamin (Daily Multi-Vitamin 1 tablet PO DAILY 05/28/20 01/13/25 History tablet) vitamin E (dl, acetate) 450 mg 4,000 mg PO DAILY 05/28/20 01/13/25 History (1,000 unit) capsule benzonatate 200 mg capsule 200 mg PO TID PRN cough #30 caps 03/15/23 01/13/25 Rx ondansetron 4 mg disintegrating 4 mg PO Q8H PRN nausea and 01/04/24 01/13/25 Rx tablet vomiting #30 tabs pantoprazole 40 mg tablet,delayed See Rx Instructions .Route 01/04/24 01/13/25 Rx release .COMPLEX #90 tabs carbidopa 25 mg-levodopa 100 mg 1.5 tablet PO TID 03/02/24 01/13/25 History tablet gabapentin 600 mg tablet See Rx Instructions .Route 06/21/24 01/13/25 Rx .COMPLEX #360 tabs zolpidem 5 mg tablet 5 mg PO QHS PRN insomnia #90 tabs 10/30/24 01/13/25 Rx biotin 1,000 mcg chewable tablet 1,000 mcg PO BID 01/13/25 01/13/25 History magnesium 200 mg tablet 400 mg PO DAILY 01/13/25 01/13/25 History potassium 99 mg tablet 99 mg PO DAILY 01/13/25 01/13/25 History zinc 15 mg tablet 15 mg PO DAILY 01/13/25 01/13/25 History Patient hx anesthesia problems: none Family hx anesthesia problems: none Results Review: All pre-operative results and documents have been reviewed as part of the pre-operative evaluation. [facility] Past Medical History Medical History Obesity GERD with esophagitis Erosive esophagitis Polycythemia, secondary Cancer of left breast Osteoporosis Undifferentiated connective tissue disease Vitamin D deficiency Generalized osteoarthritis of multiple sites History of frequent headaches Hypertriglyceridemia Fibromyalgia Lupus Parkinson disease Seasonal allergies Surgical History Surgical History H/O total hysterectomy History of repair of hiatal hernia History of esophagogastroduodenoscopy (EGD) ([place]) H/O mastectomy left Family History Family History Grandparent Family history of cardiovascular disease Carcinoma of colon Family history of emphysema Family history of thoracic aortic aneurysm Mother Family history of cardiac disorder Father Family history of malignant neoplasm of brain Social History Social History Social History: She has been for 35 years. 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 she rarely drinks alcohol and only in small amounts. She is a lifelong nonsmoker. She denies any illicit substance use of any type. Code status: Full code Surrogate decision maker: Carlee () Smoking status: Never smoker Second hand tobacco smoke exposure: No Alcohol intake: never Substance use: never Substance use type: does not use Lack of Transportation: YES Lack of Food: Never True Current Housing: I Have Housing Concerned About Future Housing: No Difficulty Paying Gas/Electric Bills: No Difficulty Paying for Meds: No Currently Unemployed: No Education: High School Diploma/GED Difficulty w/ Childcare or Family Care: No Living arrangements: with family Occupation/Education: retired Gender identity (if verbalized by the patient): Female Sexual Orientation (if Verbalized by the Patient): Straight or Heterosexual Spiritual care concerns: No Anes - Eval Final PreProcedure Day of Procedure 01/15/25 09:32 Patient weight: obese Lungs: normal air movement Airway: Mallampati scale class II Neurological: alert and oriented Last oral intake: >/= 8 hours ASA classification: III Emergent: no Anesthetic plan: proceed Anesthesia type and monitoring: general GIVS and standard monitoring Results Review: All pre-operative results and documents have been reviewed as part of the pre-operative evaluation. Parkinsons on 4 x daily meds, lupus, now w N/V, reported hematemesis although H and H stable. Informed Consent: The patient's anesthetic plan and its attendant risks and benefits were discussed with the patient/family/POA. Questions were solicited and answers provided to the satisfaction of the patient/family/POA.
--- NOTE | 2025-01-15 09:43 | S_PTH ---
PATIENT: Hitesh Chase LOC: [id number] U#:[id number] AGE/SX: 79/F ROOM: 311 RE01/14/[address]: Celena Covarrubias APRN : 1945 BED: 01 DIS: 01/16/2025 SPEC #: [id number] RECD: 01/15/25 10:55 STATUS: MILLY REMichael #: [id number] EMMANUEL: 01/15/25 09:[address]: Sky Pineda DEPT: [facility] Surgical RECD BY: Genie Sweeney ENTERED: 01/15/25 10:55 SP TYPE: Surgical OTHR DR: FIFI Chambers DO Billie Vincent, APRN Tissues: A - Gastric Biopsy B - Esophageal Biopsy Procedures: Hematoxylin and Eosin Stain Gross and Microscopic Level 4
[2025-01-15] MEDS: LACTATED RINGERS 1,000 ML 150 ML IV CONT (09:56)
--- NOTE | 2025-01-15 10:10 | PC.NURSE ---
Returned from GI lab via stretcher. Family at bedside.
[2025-01-15] MEDS: LETROZOLE (*CHEMO) 2.5 MG TABLET PO (10:12)
[2025-01-15] MEDS: CARBIDOPA/LEVODOPA 25/100 MG TABLET 1.5 TABLET PO ×3 (10:12→16:33)
[2025-01-15] MEDS: ONDANSETRON INJ 4 MG/2 ML VIAL IV PUSH (15:38)
[2025-01-15] MEDS: cefTRIAXone 1 GM in SODIUM CHLORIDE 0.9% IV 50 ML 100 ML IVPB (21:26)
[2025-01-15] MEDS: CARBIDOPA/LEVODOPA 25/100 MG CR TABLET 2 TABLET PO (21:27)
[2025-01-15] MEDS: ZOLPIDEM TARTRATE (*CRX) 5 MG TABLET PO (21:28)
[2025-01-16 05:30] VITALS: BP 121/67; PULSE 61; RESP 16; TEMP 36.3; O2SAT 97
[2025-01-16] MEDS: GABAPENTIN 300 MG CAPSULE 600 MG BY MOUTH (06:20)
[2025-01-16] MEDS: SUCRALFATE SUSP 100 MG/ML 10 ML UDC 1000 MG PO (06:20)
[2025-01-16] MEDS: LETROZOLE (*CHEMO) 2.5 MG TABLET PO (08:29)
[2025-01-16] MEDS: CARBIDOPA/LEVODOPA 25/100 MG TABLET 1.5 TABLET PO (08:29)
--- NOTE | 2025-01-16 08:56 | P.DS_ITS ---
DS: Admitting Diagnosis Discharge Date 01/16/25 Admitting Diagnosis Nausea with vomiting DS: Discharge Diagnosis Discharge Diagnosis (1) Intractable nausea and vomiting: Code(s): R11.2 - Nausea with vomiting, unspecified Status: Acute Assessment and Plan: Patient reports history intermittent intractable nausea vomiting, patient previously followed outpatient with Dr. Fraga with GI last EGD showed reflux esophagitis and hiatal hernia. CT abdomen with no acute findings however demarcus ent reports coffee-ground emesis, hemoglobin stable 13.6 * IV Fluids * Antiemetics * Advance diet as tolerated/NPO after midnight for possible EGD after seen by GI * GI consulted for any further recommendations appreciated * Monitor H&H * Bentyl p.r.n. abdominal cramping * PPI b.i.d. * Carafate with each meal Home zofran increased to 4 mg Q6 PRN (2) Headache: Code(s): R51.9 - Headache, unspecified Status: Acute Assessment and Plan: Likely secondary to patient's dehydration from nausea vomiting still present after IV hydration. * gave 1x dose Toradol * Sanborn 5/325 once * Acetaminophen p.r.n. * Continue IV fluids Denies BHARDWAJ today. (3) Elevated glucose: Code(s): R73.09 - Other abnormal glucose Status: Acute Assessment and Plan: Patient with no history of diabetes in A1C was checked after elevated glucose on admission currently at 6.1 * Currently no history of diabetes * Recommend diet and exercise * In follow-up with her primary care outpatient for a A1c 3 months (4) Abnormal urinalysis: Code(s): R82.90 - Unspecified abnormal findings in urine Status: Acute Assessment and Plan: * UA suspicious for urinary tract infection * IV ceftriaxone until discharge or culture abx not recommended at d/c (5) Parkinson disease: Qualifiers: Dyskinesia presence: unspecified whether dyskinesia Fluctuating manifestations: unspecified whether manifestations fluctuate Qualified Code(s): G20.A1 - Parkinson's disease without dyskinesia, without mention of fluctuations Code(s): G20 - Parkinson's disease Status: Chronic Assessment and Plan: * Continue carbidopa levodopa Plan Code status: Full code per patient DVT prophylaxis: SCD's Stress ulcer prophylaxis: Protonix 40 BID PT/OT notes: Ambulatory Disposition: Patient continues admission the medical unit for instructed on nausea vomiting and abdominal pain consulted GI for further evaluation recommendations. EGD today DS: Summary Hospital Course Hospital Course: Patient is a 79-year-old female admitted for intractable nausea vomiting patient reports she has intermittent episodes with no alleviating factors or aggravating factors it comes on spontaneously. 01/14/2025: Patient reports she has not had a vomiting episode since last night was able to tolerate oral intake this a.m. but still feels nauseous with mild abdominal tahir n, denies chest pain, shortness a breath, no fever chills. Still reporting headache likely secondary to dehydration and N/V. 01/15/25: Patient reports continued nausea with abd pain. No episodes of emesis. Tolerating PO. Continued headache. Time Spent with Patient Time attestation: Total time spent providing and/or coordinating discharge services: Exam Narrative: GENERAL: non-toxic, in no acute distress. HEAD: Normocephalic, atraumatic. RESPIRATORY: Airway patent, respirations nonlabored. Clear to auscultation bilaterally, no rales, rhonchi, wheezing. CARDIOVASCULAR: RRR without murmurs, rubs, or gallops. ABDOMINAL: Soft, mild diffuse tenderness throughout upper abdomen, nondistended. Normoactive BS. MUSCULOSKELETAL: Moves all extremities well. No gross deformities. SKIN: Warm, dry, normal color. NEURO: A&O X4. Speech clear. Cranial nerves II-XII grossly intact. PSYCHIATRIC: Appropriate mood and affect. Normal interaction. Const: General: comfortable and no acute distress Eyes: General: appearance normal, both eyes and all related structures Neck: Neck: supple Resp: Effort & Inspection: normal respiratory effort Auscultation: clear to auscultation bilaterally Cardio: Rate: regular rate Rhythm: regular rhythm Skin: General skin exam: normal color and no rashes or lesions noted Wounds: no wounds Neuro: General: gait normal Speech: normal speech Motor exam (neuro): 5/5 motor strength present throughout Sensory Exam: normal sensation Extrem: General: normal to inspection Psych: Mental Status: mental status grossly normal Affect: normal affect DS: Data Data Completed and Pending Completed studies during hospitalization: Pending at discharge 01/15/25 09:43 Surgical [PTH] Routine Discharge Plan Discharge Attending physician on discharge: Trey Sheppard Consulting providers: Vivian Farris; Sky Pineda Discharging Clinician: Celena Covarrubias Patient Disposition: Home Activity: unlimited Diet: as tolerated Discharge Instructions: You were seen for intractable nausea and vomiting. Call your GI doctor to schedule a follow up appointment. Your prescriptions were sent to your pharmacy. Patient Instructions: Antibiotic Form Patient Language: Tunisian Stand Alone Forms: General Discharge Information Follow-up/Referrals: Sky Pineda MD [Physician, Gastroenterology] Referral Note: Call for a post hospital follow up Wilma Seals APRN [Primary Care Provider, [facility]] Referral Note: follow up in 1 week Discharge Medications: New sucralfate 100 mg/mL suspension 1 g PO ACHS Qty: 1000 0RF ondansetron 4 mg tablet,disintegrating 4 mg PO Q6H PRN (Reason: nausea and vomiting) Qty: 90 0RF Continued letrozole 2.5 mg tablet 2.5 mg PO DAILY benzonatate 200 mg capsule 200 mg PO TID PRN (Reason: cough) Qty: 30 0RF pantoprazole 40 mg tablet,delayed release (DR/EC) See Rx Instructions .ROUTE .COMPLEX Qty: 90 3RF Dose Instruction: Take 1 tablet by mouth once daily Rx Instructions: Take 1 tablet by mouth once daily multivitamin [Daily Multi-Vitamin] Tablet 1 tablet PO DAILY coenzyme N33-ceviado E 100-100 mg-unit capsule 1 cap PO DAILY vitamin E (dl, acetate) 450 mg (1,000 unit) capsule 4,000 mg PO DAILY calcium carbonate-vitamin D3 [Calcium 600 with Vitamin D3] 600 mg(1,500mg) - 500 unit capsule 1 cap PO DAILY carbidopa-levodopa 25-100 mg tablet 1.5 tablet PO TID potassium 99 mg tablet 99 mg PO DAILY magnesium 200 mg tablet 400 mg PO DAILY zinc 15 mg tablet 15 mg PO DAILY biotin 1,000 mcg tablet,chewable 1,000 mcg PO BID carbidopa-levodopa 50-200 mg tablet extended release 1 tablet PO HS gabapentin 600 mg tablet See Rx Instructions .ROUTE .COMPLEX Qty: 360 3RF Dose Instruction: TAKE 1 TABLET BY MOUTH EVERY 6 HOURS Rx Instructions: TAKE 1 TABLET BY MOUTH EVERY 6 HOURS zolpidem 5 mg tablet 5 mg PO QHS PRN (Reason: insomnia) Qty: 90 0RF Discontinued ondansetron 4 mg tablet,disintegrating 4 mg PO Q8H PRN (Reason: nausea and vomiting) Qty: 30 3RF Date of admission: 01/14/25 16:48 Primary Care Provider: Wilma Seals Admitting Provider: Mary Crain Attending physician on admission: Mary Crain Condition: Stable Quality VTE Prophylaxis VTE prophylaxis: mechanical ordered (SCDs)
== END 2025-01-16 10:08 | disposition home or self-care (01) | DRG 392 ==
LOC: ANHED 19:10 → ANH2MED 01-13 00:37 → ANH3MEDSUR 01-13 01:37
PROVIDERS: Internal Medicine Gastroenterology; Physician Assistant; Admitting Provider Internal Medicine; Emergency Provider Physician Assistant; PCP Nurse Practitioner Adult Health; Visit Provider Nurse Practitioner Adult Health
PROC: 0DJ08ZZ Inspection of Upper Intestinal Tract, Via Natural or Artificial Opening Endoscopic (ICD-10-PCS; principal; 2025-01-15 10:00)
DX: K21.00 Gastro-esophageal reflux disease with esophagitis, without bleeding (principal); K44.9 Diaphragmatic hernia without obstruction or gangrene; E86.0 Dehydration; R82.90 Unspecified abnormal findings in urine; G20.A1 Parkinson's disease without dyskinesia, without mention of fluctuations; E66.9 Obesity, unspecified; M62.89 Other specified disorders of muscle; M81.0 Age-related osteoporosis without current pathological fracture; M79.7 Fibromyalgia; M35.9 Systemic involvement of connective tissue, unspecified; D75.1 Secondary polycythemia; E78.1 Pure hyperglyceridemia; M32.9 Systemic lupus erythematosus, unspecified; M15.9 Polyosteoarthritis, unspecified; E55.9 Vitamin D deficiency, unspecified; Z20.822 Contact with and (suspected) exposure to COVID-19; F10.90 Alcohol use, unspecified, uncomplicated; Z85.3 Personal history of malignant neoplasm of breast; Z90.12 Acquired absence of left breast and nipple; Z68.32 Body mass index [BMI] 32.0-32.9, adult; Z92.3 Personal history of irradiation
CPT/HCPCS: 36415; 70450; 71250; 74177; 80048; 80053; 81001; 83036; 83605; 83690; 83735; 85025; 85027; 87086; 87637; 88305; 96361; 96365; 96366; 96367; 96375; 96376; 99285; A9270; G0378; J0696; J1200; J1885; J2405; J2470; J2550; J2704; J2765; J3480; J7030; J7040; J7120; Q9967

== ENCOUNTER 2025-01-19 13:07 | Emergency (ER) | payer MEDICARE, SELFPAY ==
--- OUTSIDE RECORDS SUMMARY | 2025-01-19 13:10 | XMS_ITS | Clinical Summary ---
Author Organization [facility] Address [address] [place] [address] Care Team Providers Care Marketing Operations Associate Name Role Phone Ivan Valdez MD Primary Care Provider [phone] [phone] Allergies Active Allergy Reactions Criticality Noted Date [...] TIMES DAILY NEEDED FOR COUGH 3 Active letrozole (FEMARA) 2.5 mg tabletIndications :Malignant [...] 90 tablet 3 5 10/07/19 26 Active zolpidem (AMBIEN) 5 mg tablet 5 Active Active Problems Problem Noted Date Diagnosed [...] precautions Assessment & Plan (03/22/2024 9:00 PM AUTOPSY PATHOLOGIST): Stage 3 parkinsonism manifest since age 59 [...] precautions Assessment & Plan (03/17/2023 12:20 PM AUTOPSY PATHOLOGIST): Stage 3 parkinsonism manifest since age 59 [...] she is interested in research- genetics (told commercial front load operator), and PIB/PAND- please notify research coordinators. [...] 1 tab at bedtime. This encounter's total fppp-gw-bbws time was greater than 30 minutes. I [...] This was a telemedicine visit with Hitesh Chase alone which took place via Telephone. During the visit, I was located in the office and the patient was located at home in the state of [place]. The patient visit started at 16:38 and [...] Encounters Date Type Department Care Team Description 12/22/2024 11:30 AM CDT Office Visit [facility] [address] [facility] [address] [place] [id number] Alia Ashley NP Parkinson's disease, unspecified whether dyskinesia present, unspecified whether manifestations fluctuate (HCC) (Primary Dx) 12/08/2024 8:30 AM CDT Office Visit [facility] [address] [place] [address] Roseanne Mccollum NP Breast cancer screening by mammogram (Primary Dx); Malignant neoplasm of female breast, unspecified estrogen receptor status, unspecified laterality, unspecified site of breast (HCC) 11/06/2024 2:21 PM CDT - 11/06/2024 11:59 PM CDT Hospital Encounter [facility] [address] [place] [address] History of breast cancer; Abnormal mammogram Discharge Disposition: Discharge to home or self care 10/26/2024 Telephone [facility] [address] [facility] [address] [place] [address] Isabel Curtis CMA from Last [...] breast ca Breast cancer (HCC) 2016 left Abnormal breast exam 11/06/2024 Family History Medical History Relation Name Comments [...] on file Legal Sex Female 7:17 PM AUTOPSY PATHOLOGIST Gender Identity Female 05/01/2022 2:39 PM AUTOPSY PATHOLOGIST Sexual Orientation Straight 01/27/2020 8: 29 PM CDT Obstetrics History Para Term AB IAB SAB Ectopic Multiple Livin g Live Births 2 2 2 Date Outcome GA Total Labor Labor/2nd/3rd Weight Sex Type Anes PTL Janay A1 A5 Name Clin Term Term Last Filed Vital Signs Vital Sign Reading Time Taken Comments Blood Pressure 150/89 12/22/2024 11:20 AM CDT Pulse 73 12/22/2024 11:20 AM CDT Temperature 36.2 C (97.1 F) 12/08/2024 8:26 AM CDT Respiratory Rate 18 12/08/2024 8:26 AM CDT Oxygen Saturation 95% 12/08/2024 8:26 AM CDT Inhaled Oxygen Concentration - - Weight 85.5 kg (188 lb 9.6 oz) 12/22/2024 11:20 AM CDT Height 158.8 cm (5' 2.5) 12/22/2024 11:20 AM CD T Body Mass Index 33.95 12/22/2024 11:20 AM CDT Plan of Treatment Health Maintenance Due Date Last Done Comments Fall Risk Assessment 1945 Hepatitis C Screening 1945 Hepatitis B Screening 1965 Well Visit 65+ 2012 Pneumococcal vaccine 65+ (2 of 2 - PPSV23, PCV20, or PCV21) 07/15/2016 05/20/2016, 12/18/2014 Zoster Vaccine (2 of 2) 01/02/2021 11/07/2020, 02/08 Depression Screening 03/17/2024 03/17/2023 Covid-19 Vaccine (4 - 2024-2 6 season) 2024 05/31/2020, 05/30/2020, 05/02/2020, Additional history exists DTaP/Tdap/Td Vaccine (2 - Td or Tdap) 12/18/2024 12/18/2014 Influenza Vaccine (#1) 2024 , 12/29/2018, 01/19/2018, [...] Routine (OP Routine) 02/01/2023 10:28 AM CDT assisted (current) use of aromatase inhibitors from Last [...] There is no significant change.. Roseanne Mccollum OUTSIDE BARREL LATHE OPERATOR IMG MAMMO PROCEDURES Final Result * Dexa Axial Skeleton Bone Density 1 or 2 Site (02/01/2023 10:28 AM CDT) Anatomical Region Laterality Modality Body N/A Other 02/01/2023 9:19 PM CDT Narrative 02/01/2023 9:23 PM CDT EXAM DESCRIPTION: DEXA AXIAL SKELETON BONE DENSITY 1 OR MORE SITES REASON FOR STUDY: 77 y/o year old F with given history of: snf use of AI's Screening postmenopausal Volunteer Recruiter/Model: [email or web address] SL (S/N [id number]) CLINICAL INFORMATION: Current height: 62 inches Maximum [...] Mu Clemente M.D. MF: ABI Report ID: [id number] Reading Location: [place] [address] Procedure Note Mu Clemente MD - 02/01/2023 EXAM DESCRIPTION: DEXA AXIAL SKELETON BONE DENSITY 1 OR MORE SITES REASON FOR STUDY: 77 y/o year old F with given history of: longtermuse of AI's Screening postmenopausal Volunteer Recruiter/Model: Masabi (S/N [id number]) CLINICAL INFORMATION: Current height: 62 inches Maximum [...] Mu Clemente M.D. MF: ABI Report ID: [id number] Reading Location: [place] [address] Roseanne Mccollum NP IMG DXA PROCEDURES Final R esult from Last 3 Months or Most Recently Relevant to Health Maintenance Insurance [employer] MEDICARE HMO Care Teams Marketing Operations Associate Relationship Specialty Start Date End Date Ivan Valdez MD PCP - General 04/10/21
--- OUTSIDE RECORDS SUMMARY | 2025-01-19 13:10 | XMS_ITS ---
Author Organization [facility] Address [address] [place] [address] Care Team Providers Care Tea Tree Farmer Name Role Phone Ivan Valdez MD Primary Care Provider [phone] Active Problems Problem Noted Date Diagnosed Date [...] precautions Assessment & Plan (03/22/2024 9:00 PM NAPPING MACHINE OPERATOR): Stage 3 parkinsonism manifest since age 59 [...] precautions Assessment & Plan (03/17/2023 12:20 PM NAPPING MACHINE OPERATOR): Stage 3 parkinsonism manifest since age 59 [...] she is interested in research- genetics (told medical front desk specialist), and PIB/PAND- please notify research coordinators. Assessment [...] 1 tab at bedtime. This encounter's total gzsf-wo-gdii time was greater than 30 minutes. I [...] located at home in the state of [place]. The patient visit started at 16:38 and [...] positive 06/11/2017 Current Treatment and Therapy Plans No current plan information found. Past Treatment and Therapy Plans Oncology Supportive Care Therapy Plan Plan Name Start Date Discontinue Date Treatment Medications Discontinue Reason Plan Provider ZOLEDRONIC ACID (ZOMETA) INFUSION 12/22/2017 01/17/2025 No medications scheduled. Therapy Complete Roseanne Mccollum NP Specialty Infusion Treatment Plan Name Start Date Discontinue Date Treatment Medications Discontinue Reason Plan Provider IV Maintenance Therapy Plan 9 02/24/2023 No medications scheduled. Automatic discontinuation of dormant plans Cherelle Lemus MD
--- OUTSIDE RECORDS SUMMARY | 2025-01-19 13:10 | XMS_ITS | Clinical Summary ---
Author Organization [facility] Address [address] [place] [address] Phone Care Team Providers Care Unit Reactor Operator Name Role Phone AlexanderArtem lee Annie CARDOZO Primary Care Provider [phone]- [phone] Allergies Active Allergy Reactions Criticality Noted Date [...] Comments Blood Pressure 156/73 06/20/2015 12:30 PM DOUBLER OPERATOR Pulse 68 06/20/2015 2:26 PM DOUBLER OPERATOR Temperature 36.2 C (97.1 F) 06/20/2015 12:30 PM DOUBLER OPERATOR Respiratory Rate 18 06/20/2015 2:26 PM DOUBLER OPERATOR Oxygen Saturation 95% 06/20/2015 2:26 PM DOUBLER OPERATOR Inhaled Oxygen Concentration - - Weight 84.4 kg (186 lb) 06/20/2015 12:30 PM DOUBLER OPERATOR Height 160 cm (5' 3) 06/20/2015 12:30 PM DOUBLER OPERATOR Body Mass Index 32.95 06/20/2015 12:30 PM DOUBLER OPERATOR Plan of Treatment Health Maintenance Due Date [...] topic Insurance MEDICARE C HUMANA Care Teams Unit Reactor Operator Relationship Specialty Start Date End Date Artem Velazquez DO [address] [place] [address] PCP - General Family Medicine 01/26/18
--- OUTSIDE RECORDS SUMMARY | 2025-01-19 13:10 | XMS_ITS | Encounter Summary ---
Author Organization [facility] Address [address] [place] [address] Phone Care Team Providers Care Reconstructive Surgeon Name Role Phone Artem Velazquez DO Primary Care Provider [phone]- [phone] Reason for Referral * PT/OT/ST (Routine) - Closed Specialty Diagnoses / Procedures Referred By Contac t Referred To Contact Physical Therapy Diagnoses Parkinson's disease, unspecified whether dyskinesia present, unspecified whether manifestations fluctuate Orestes Mcclain MD [address] [facility] [place] [address] Phone: tel: fax: [facility] [address] [address] Phone: tel: fax: Referral ID Status Reason Start Date Expiration Date Visits Re quested Visits Authorized [id number] Closed 05/15/2024 50 11 Scheduling Instructions TTING MACHINE FEEDER Encounter Details Date Type Department Care Team (Latest Contact Info) Description 05/15/2024 Transcribe Orders [facility] [address] [place] [address] Orestes Mcclain MD [address] [facility] [place] [address] Parkinson's disease, unspecified whether dyskinesia [...] Primary documented in this encounter Care Teams Reconstructive Surgeon Relationship Specialty Start Date End Date Artem Velazquez DO [address] [place] [address] PCP - General Family Medicine 01/26/18 documented as of this encounter
[2025-01-19 13:13] VITALS: BP 148/79; PULSE 71; RESP 16; TEMP 36.6; O2SAT 98
[2025-01-19 13:46] LABS: Hematocrit 44.5 % (37.0-47.0); Hemoglobin 15.1 g/dL (12.0-15.0); Immature Granulocyte Percent A 0.2 % (0-0.5); Lymphocytes Absolute Auto 2.04 K/mm3 (0.9-3.2); Mean Corpuscular HGB Conc 33.9 g/dl (32-36); Mean Corpuscular Hemoglobin 31.4 pg (26-34); Mean Corpuscular Volume 92.5 fl (80-100); Nucleated Red Blood Cells Absolute Auto 0.000 K/mm3 (0.0-0.012); Nucleated Red Blood Cells Perc 0.0 % (0.0-0.2); Platelet Count Result 218 k/mm3 (150-375); Red Blood Count 4.81 M/mm3 (4.2-5.4); White Blood Count 5.8 K/mm3 (4.5-10.0)
[2025-01-19 14:02] LABS: Alanine Aminotransferase 10 U/L (6-35); Albumin Level 4.1 g/dL (3.5-5.1); Alkaline Phosphatase 60 U/L (38-126); Anion Gap 7 mmol/L (4-12); Aspartate Amino Transferase 32 U/L (14-36); Bilirubin,Total 0.9 mg/dL (0.2-1.3); Blood Urea Nitrogen 12 mg/dL (7-17); Calcium 9.7 mg/dL (8.4-10.2); Carbon Dioxide 26 mmol/L (22-30); Chloride 101 mmol/L (98-107); Estimated CRCL calculation 67 ml/min; Estimated Glomerular Filt Rate > 60; Glucose 110 mg/dL (65-110); Lipase 42 U/L (23-300); Potassium 3.7 mmol/L (3.4-5.0); Sodium 134 mmol/L (137-145); Total Protein 7.3 g/dL (6.3-8.2)
[2025-01-19] MEDS: BELLADONNA ALK/PHENOB ELIX 10 ML, MAG HYDROX/ALUMINUM HYD/SIMETH 30 ML, LIDOCAINE 2% VI... PO (14:27)
[2025-01-19] MEDS: METOCLOPRAMIDE HCL INJ 10 MG/2 ML VIAL IV PUSH (14:27)
[2025-01-19] MEDS: PANTOPRAZOLE SODIUM IV 40 MG VIAL IV PUSH (14:28)
[2025-01-19] MEDS: LACTATED RINGERS 1,000 ML 999 ML IV CONT (14:28)
[2025-01-19 15:19] VITALS: O2SAT 95
[2025-01-19 15:21] VITALS: BP 121/74; PULSE 65; RESP 20; O2SAT 94
[2025-01-19 15:49] LABS: Add Urine Microscopic? YES; Appearance Urine Clear (Clear); Glucose Urine UA Negative (Negative); Leukocyte Esterase Ur 1+ LEU/UL (Negative); Nitrate Urine Negative (Negative); Non Pathogenic Casts 0-2; Specific Grav Ur 1.006 (1.001-1.035)
[2025-01-19 16:09] VITALS: BP 119/69; PULSE 64
[2025-01-19 16:10] VITALS: BP 104/74; BP 118/80; PULSE 68; PULSE 77
--- NOTE | 2025-01-19 16:44 | ED.GENADULT ---
HPI - General Adult General Chief complaint: Nausea/Vomiting/Diarrhea Stated complaint: vomiting Time Seen by Provider: 01/19/25 13:23 History of Present Illness HPI narrative: 79-year-old female presents emergency department for evaluation for persistent nausea and vomiting. Patient was discharged from the hospital for gastritis and esophagitis. Patient states she her nausea medication, Zofran is not helping. Patient is having trouble maintaining hydration. Patient was prescribed liquid Carafate but insurance would not cover it so patient has been taking Carafate tablets. Patient does have history of Parkinson's and is on carbidopa levodopa Related Data Home Medications ?Medication ?Instructions ?Recorded ?Confirmed ?Last Taken ?Type carbidopa ER 50 mg-levodopa 200 mg 1 tablet PO HS 02/28/19 01/13/25 01/11/25 History tablet,extended release letrozole 2.5 mg tablet 2.5 mg PO DAILY 10/02/19 01/13/25 01/11/25 History calcium 600 mg (as 1 cap PO DAILY 05/28/20 01/13/25 01/11/25 History carbonate)-vitamin D3 12.5 mcg (500 unit) capsule (Calcium with Vit D3) coenzyme [id number] 100 mg-100 1 cap PO DAILY 05/28/20 01/13/25 01/11/25 History unit capsule multivitamin (Daily Multi-Vitamin 1 tablet PO DAILY 05/28/20 01/13/25 01/11/25 History tablet) vitamin E (dl, acetate) 450 mg 4,000 mg PO DAILY 05/28/20 01/13/25 01/11/25 History (1,000 unit) capsule carbidopa 25 mg-levodopa 100 mg 1.5 tablet PO TID 03/02/24 01/13/25 01/11/25 History tablet biotin 1,000 mcg chewable tablet 1,000 mcg PO BID 01/13/25 01/13/25 01/11/25 History magnesium 200 mg tablet 400 mg PO DAILY 01/13/25 01/13/25 01/11/25 History potassium 99 mg tablet 99 mg PO DAILY 01/13/25 01/13/25 01/11/25 History zinc 15 mg tablet 15 mg PO DAILY 01/13/25 01/13/25 01/11/25 History Allergies Allergy/AdvReac Type Severity Reaction Status Date / Time ciprofloxacin Allergy Unknown Difficulty Verified 01/19/25 13:15 Breathing levofloxacin Allergy Unknown Difficulty Verified 01/19/25 13:15 Breathing Review of Systems Review of Systems: All systems reviewed & are unremarkable except as noted in HPI and below PMFSH Past Medical History Medical History Obesity GERD with esophagitis Erosive esophagitis Polycythemia, secondary Cancer of left breast Osteoporosis Undifferentiated connective tissue disease Vitamin D deficiency Generalized osteoarthritis of multiple sites History of frequent headaches Hypertriglyceridemia Fibromyalgia Lupus Parkinson disease Seasonal allergies Surgical History Surgical History H/O total hysterectomy History of repair of hiatal hernia History of esophagogastroduodenoscopy (EGD) ([place]) H/O mastectomy left Family History Family History Grandparent Family history of cardiovascular disease Carcinoma of colon Family history of emphysema Family history of thoracic aortic aneurysm Mother Family history of cardiac disorder Father Family history of malignant neoplasm of brain Social History Social History Social History: She has been for 35 years. 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 she rarely drinks alcohol and only in small amounts. She is a lifelong nonsmoker. She denies any illicit substance use of any type. Code status: Full code Surrogate decision maker: Carlee () Smoking status: Never smoker Second hand tobacco smoke exposure: No Alcohol intake: never Substance use: never Substance use type: does not use Lack of Transportation: YES Lack of Food: Never True Current Housing: I Have Housing Concerned About Future Housing: No Difficulty Paying Gas/Electric Bills: No Difficulty Paying for Meds: No Currently Unemployed: No Education: High School Diploma/GED Difficulty w/ Childcare or Family Care: No Living arrangements: with family Occupation/Education: retired Gender identity (if verbalized by the patient): Female Sexual Orientation (if Verbalized by the Patient): Straight or Heterosexual Spiritual care concerns: No Exam Narrative: APPEARANCE: Well appearing, no pain, no distress, well-nourished. HEAD: normocephalic, atraumatic. EYES: PERRLA/EOMI, conjunctivae clear. NOSE: Normal no drainage EARS:TMS clear with good light reflex. THROAT: Pharynx clear, no exudate. NECK: Supple. No adenopathy, no masses. RESPIRATORY: Airway patent, respirations nonlabored. Clear to auscultation bilaterally, no rales, rhonchi, wheezing. CARDIOVASCULAR: Regular rate and rhythm without murmurs rubs or gallops. ABDOMINAL: Soft, nontender, nondistended, normal bowel sounds MUSCULOSKELETAL: Moves all extremities. Strength/ROM intact, No edema, No calf tenderness. NEURO: Alert. Cranial nerves II through XII intact. Grossly intact SKIN: Warm, dry. Normal Color Course Vital Signs Vital signs: Vital Signs Temperature 97.9 F 01/19/25 13:13 Pulse Rate 71 01/19/25 13:13 Respiratory Rate 16 01/19/25 13:13 Blood Pressure 148/79 H 01/19/25 13:13 Pulse Oximetry 98 01/19/25 13:13 Oxygen Delivery Room Air 01/19/25 13:13 Temperature 98.0 F 01/19/25 17:25 Pulse Rate 64 01/19/25 17:25 Respiratory Rate 14 01/19/25 17:25 Blood Pressure 101/87 01/19/25 17:25 Pulse Oximetry 94 01/19/25 17:25 Oxygen Delivery Nasal Cannula 01/19/25 15:19 Oxygen Flow Rate 2 01/19/25 15:19 Medical Decision Making [facility] Narrative Medical decision making narrative: 79-year-old female presents emergency department for evaluation for persistent nausea and vomiting after recently being discharged. Patient is currently afebrile with no leukocytosis hemoglobin of 15.1 with no significant acute abnormalities on her CMP and UA is negative for infection. Patient was treated with GI cocktail, a L of lactated Ringer's for dehydration and Reglan for nausea control and Protonix for esophagitis. On re-evaluation patient states he does feel significantly improved. Patient will be provided Reglan for nausea control in addition to Phenergan suppositories. Patient states she had initially been prescribed Carafate liquid but insurance would only cover Carafate pills. Patient was advised to try Maalox for symptom control. Patient was also encouraged close follow-up with GI. Differential Diagnosis Differential Diagnosis: Colitis, diverticulitis, gastritis, esophagitis, dehydration Vital Signs Vital Signs: Vital Signs Temperature 97.9 F 01/19/25 13:13 Pulse Rate 71 01/19/25 13:13 Respiratory Rate 16 01/19/25 13:13 Blood Pressure 148/79 H 01/19/25 13:13 Pulse Oximetry 98 01/19/25 13:13 Oxygen Delivery Room Air 01/19/25 13:13 Temperature 98.0 F 01/19/25 17:25 Pulse Rate 64 01/19/25 17:25 Respiratory Rate 14 01/19/25 17:25 Blood Pressure 101/87 01/19/25 17:25 Pulse Oximetry 94 01/19/25 17:25 Oxygen Delivery Nasal Cannula 01/19/25 15:19 Oxygen Flow Rate 2 01/19/25 15:19 Lab Data Lab results reviewed: Yes I reviewed the patient's lab results. 01/19/25 13:35 01/19/25 13:35 Labs: Lab Results 01/19/25 01/19/25 Range/Units 13:35 15:38 WBC 5.8 (4.5-10.0) K/mm3 RBC 4.81 (4.2-5.4) M/mm3 Hgb 15.1 H (12.0-15.0) g/dL Hct 44.5 (37.0-47.0) % MCV 92.5 (80-100) fl MCH 31.4 (26-34) pg MCHC 33.9 (32-36) g/dl RDW 12.6 (11.5-14.5) % Plt Count 218 (150-375) k/mm3 MPV 11.0 H (7.4-10.4) fl Immature Gran % (Auto) 0.2 (0-0.5) % Neut % (Auto) 54.6 (45.5-73.1) % Lymph % (Auto) 35.4 (18.3-44.2) % Pacific % (Auto) 8.3 (2.6-8.5) % Eos % (Auto) 1.2 (0-4.4) % Baso % (Auto) 0.3 (0.2-1.2) % Lymph # (Auto) 2.04 (0.9-3.2) K/mm3 Pacific # (Auto) 0.5 (0.1-0.6) K/mm3 Eos # (Auto) 0.1 (0-0.3) K/mm3 Baso # (Auto) 0.0 (0.0-0.1) K/mm3 Abs Immat Gran (auto) 0.01 (0.00-0.031) K/mm3 Absolute Neuts (auto) 3.1 (1.3-6.7) K/mm3 Absolute Nucleated RBC 0.000 (0.0-0.012) K/mm3 Nucleated RBC % 0.0 (0.0-0.2) % Sodium 134 L (137-145) mmol/L Potassium 3.7 (3.4-5.0) mmol/L Chloride 101 (98-107) mmol/L Carbon Dioxide 26 (22-30) mmol/L Anion Gap 7 (4-12) mmol/L BUN 12 (7-17) mg/dL Creatinine 0.60 L (0.7-1.0) mg/dL Estim Creat Clear Calc 67 ml/min Estimated GFR > 60 (59 - ) Glucose 110 (65-110) mg/dL Calcium 9.7 (8.4-10.2) mg/dL Total Bilirubin 0.9 (0.2-1.3) mg/dL AST 32 (14-36) U/L ALT 10 (6-35) U/L Alkaline Phosphatase 60 (38-126) U/L Total Protein 7.3 (6.3-8.2) g/dL Albumin 4.1 (3.5-5.1) g/dL Lipase 42 (23-300) U/L Urine Color Yellow (Yellow) Urine Appearance Clear (Clear) Urine pH 6.5 (5.0-9.0) Ur Specific [place] 1.006 (1.001-1.035) Urine Protein Negative (Negative) mg/dL Urine Glucose (UA) Negative (Negative) mg/dL Urine Ketones Negative (Negative) mg/dL Ur Blood (Man) Negative (Negative) Urine Nitrate Negative (Negative) Urine Bilirubin Negative (Negative) Urine Urobilinogen 0.2 (<2.0) mg/dL Leukocyte Esterase Rfl 1+ H (Negative) MORGAN/UL Urine RBC 0-2 (0-2) /hpf Urine WBC 6-10 H (0-3) /hpf Ur Squamous Epith Cells None seen (Few) /hpf Urine Bacteria None seen /hpf Urine Casts 0-2 Discharge Plan Discharge Clinical Impression: Nausea & vomiting, Esophagitis Patient Disposition: Home Condition: Stable Instructions: Antibiotic Form, Clear Liquid Diet (ED), Diet for Stomach Ulcers and Gastritis (ED) Additional Instructions: Avoid alcohol and avoid NSAIDs. Continue taking your pantoprazole as directed. Reglan for nausea control and Phenergan suppository for further nausea control as needed. If you have burning epigastric pain then I recommend trying Maalox to help with those symptoms. While you are having nausea and vomiting I do recommend following a clear liquid diet. Have close follow-up with GI. The Phenergan and Reglan may have adverse effects when also being taken with your carbidopa levodopa. I do recommend sticking with the Zofran but taking the Reglan or Phenergan as a backup medication. Patient Language: Maori Prescriptions: New metoclopramide HCl [Reglan] 10 mg tablet 10 mg PO Q6H PRN (Reason: nausea and vomiting) Qty: 14 0RF promethazine 12.5 mg suppository 12.5 mg RECTAL TID PRN (Reason: nausea and vomiting) Qty: 12 0RF Rx Instructions: do not give 3rd daily dose after evening meal or within 4hr before bed No Action letrozole 2.5 mg tablet 2.5 mg PO DAILY benzonatate 200 mg capsule 200 mg PO TID PRN (Reason: cough) Qty: 30 0RF multivitamin [Daily Multi-Vitamin] Tablet 1 tablet PO DAILY coenzyme [id number] 100-100 mg-unit capsule 1 cap PO DAILY vitamin E (dl, acetate) 450 mg (1,000 unit) capsule 4,000 mg PO DAILY calcium carbonate-vitamin D3 [Calcium 600 with Vitamin D3] 600 mg(1,500mg) -500 unit capsule 1 cap PO DAILY carbidopa-levodopa 25-100 mg tablet 1.5 tablet PO TID potassium 99 mg tablet 99 mg PO DAILY magnesium 200 mg tablet 400 mg PO DAILY zinc 15 mg tablet 15 mg PO DAILY biotin 1,000 mcg tablet,chewable 1,000 mcg PO BID ondansetron 4 mg tablet,disintegrating 4 mg PO Q6H PRN (Reason: nausea and vomiting) Qty: 90 0RF sucralfate 100 mg/mL suspension 1 g PO ACHS Qty: 1000 0RF ondansetron 4 mg tablet,disintegrating 4 mg PO Q6H PRN (Reason: nausea and vomiting) Qty: 90 0RF sucralfate [Carafate] 1 gram tablet 1 g PO ACHS Qty: 120 0RF carbidopa-levodopa 50-200 mg tablet extended release 1 tablet PO HS gabapentin 600 mg tablet See Rx Instructions .ROUTE .COMPLEX Qty: 360 3RF Dose Instruction: TAKE 1 TABLET BY MOUTH EVERY 6 HOURS Rx Instructions: TAKE 1 TABLET BY MOUTH EVERY 6 HOURS zolpidem 5 mg tablet 5 mg PO QHS PRN (Reason: insomnia) Qty: 90 0RF pantoprazole 40 mg tablet,delayed release (DR/EC) See Rx Instructions .ROUTE .COMPLEX Qty: 90 0RF Dose Instruction: Take 1 tablet by mouth once daily Rx Instructions: Take 1 tablet by mouth once daily Follow-up/Referrals: Sky Pineda MD [Physician, Gastroenterology] Wilma Seals APRN [Primary Care Provider, Family Practice]
[2025-01-19 17:25] VITALS: BP 101/87; PULSE 64; RESP 14; TEMP 36.7; O2SAT 94
== END 2025-01-19 17:26 | disposition home or self-care (01) ==
PROVIDERS: Emergency Medicine; Emergency Provider Emergency Medicine; PCP Nurse Practitioner Adult Health
DX: R11.2 Nausea with vomiting, unspecified (principal); K21.00 Gastro-esophageal reflux disease with esophagitis, without bleeding; G20.A1 Parkinson's disease without dyskinesia, without mention of fluctuations; E55.9 Vitamin D deficiency, unspecified; E78.1 Pure hyperglyceridemia; M81.0 Age-related osteoporosis without current pathological fracture; M19.90 Unspecified osteoarthritis, unspecified site; M79.7 Fibromyalgia; M32.9 Systemic lupus erythematosus, unspecified; Z85.3 Personal history of malignant neoplasm of breast; Z90.710 Acquired absence of both cervix and uterus; Z90.12 Acquired absence of left breast and nipple; Z79.899 Other long term (current) drug therapy
CPT/HCPCS: 36415; 80053; 81001; 83690; 85025; 87086; 96361; 96374; 96375; 99284; A9270; J2470; J2765; J7120

== ENCOUNTER 2025-03-27 08:46 | Outpatient (CLI) | payer MEDICARE, SELFPAY ==
--- NOTE | ~2025-03-27 | NM_ITS ---
EXAM/PROCEDURE: NM gastric emptying study HISTORY: GERD, early satiety, intractable nause/vomiting COMPARISON: None available. TECHNIQUE: Gastric emptying scintigraphy performed Dose: 0.979 mCi technetium 99M sulfur colloid admixed in eggs and administered orally. FINDINGS: Gastric retention times as follows: 0 minutes: 100% 80 minutes: 76%. 127 minutes: 66% 242 minutes: 55% IMPRESSION: Findings consistent with at least mildly delayed gastric emptying which could be associated with gastroparesis. Reviewed, dictated and finalized at location A. E PAPER HAMMERMILL OPERATOR IMPRESSION: Findings consistent with at least mildly delayed gastric emptying which could b e associated with gastroparesis.
== END 2025-03-27 08:47 | disposition home or self-care (01) ==
PROVIDERS: PCP Nurse Practitioner Adult Health; Visit Provider Nurse Practitioner
DX: R11.2 Nausea with vomiting, unspecified (principal); K22.10 Ulcer of esophagus without bleeding
CPT/HCPCS: 78264; A9541